=== PATIENT | male | born 1965 | race Caucasian/White ===

== ENCOUNTER 2018-01-23 01:23 | Outpatient (CLI) | payer OTHER, SELFPAY ==
--- NOTE | 2018-01-23 08:20 | DI.REPORT_ITS ---
SYMPTOM/DIAGNOSIS: RIGHT ELBOW PAIN, M25.521 RIGHT ELBOW: 01/23 Four views were obtained. There is no evidence of an elbow joint effusion or hemarthrosis. Mild degenerative changes of the joints of the elbow noted. No other significant abnormality seen.
== END 2018-01-23 01:24 ==
PROVIDERS: PCP Specialist/Technologist Athletic Trainer; Visit Provider Specialist/Technologist Athletic Trainer
DX: M25.521 Pain in right elbow (principal); M19.021 Primary osteoarthritis, right elbow
CPT/HCPCS: 73080

== ENCOUNTER 2018-11-27 13:37 | Inpatient (IN) | payer MEDICAID, SELFPAY ==
[2018-11-27] VITALS (50 sets, daily range): BP systolic 135–193; BP diastolic 89–126; PULSE 83–100; RESP 14–21; TEMP 36.5–37.2; O2SAT 88–98
--- NOTE | 2018-11-27 13:50 | DI.RAD_ITS ---
SYMPTOMS/DIAGNOSIS: CHEST PAIN, ? ACUTE DISEASE PA AND LATERAL CHEST: The heart is normal in size. The lungs are clear. The mediastinal structures and pleura appear intact. CONCLUSION: Normal chest.
--- NOTE | 2018-11-27 14:10 | W.ED.GENAD ---
Discharge Plan Disposition Patient Disposition: [facility] INPATIENT Condition: Stable Discharge Details Chief Complaint: Chest Pain Clinical Impression: Diverticulitis of large intestine with perforation and abscess without bleeding, Accelerated hypertension Admit Date/Time: 11/27/18 16:54 Admit Provider: Elaine Allen Attending Provider: Elaine Allen Primary Care Provider: Sajan Barker ED Provider: Kyung Randhawa Discharge Data Discharge Date/Time-TO BE ENTERED AT DEPARTURE: 11/27/18 19:48 Medical Decision Making 53-year-old male with a history of hypertension who presents with substernal chest pressure since 8 AM this morning. EKG done on arrival which notes a rate of 101, sinus, left anterior fascicular block, no acute ST-T wave ischemic changes. No old EKG to compare. Patient is hypertensive, blood pressure 173/105. He states he has already taken his daily dose of amlodipine and lisinopril. Patient appears uncomfortable, complaining of anterior chest pain. Upon exam, he has epigastric tenderness. Lungs CTA. Cardiac work-up ordered on arrival and unremarkable with negative troponin and chest x-ray. He had an elevated white blood cell count of 14. Magnesium 1.6. Upon reviewing work-up and reassessment, later stated that patient had an episode of lower abdominal pain 2 weeks ago for which he was seen in the ER in [place] and was told it was likely gastroenteritis - no ct done at that time. Patient is now stating that his main complaint is a headache. No focal deficits. He denies tearing sensation, so doubt dissection. With patient's history of recent travel and recent lower abdominal pain, will obtain a CT chest abdomen and pelvis in addition to CT head. Imaging reviewed with radiologist and notes severe diverticulitis with localized free air outside of colon consistent with perforation and phlegmon which could be developing into an early abscess. 1600 --discussed with surgery on-call Dr. Allen -would like IV Cipro and IV Flagyl. Accepts patient for admission. 1644 --patient informed of plan and agreeable for admission. BP still hypertensive, dose of hydralazine given and BP slightly improved. Pt chest pain much improved, also admits to some improvement of headache with morphine. Medical Records Medical records reviewed: Yes I reviewed the patient's medical records. Imaging Data Radiologic Study: Radiologist's impression: PA AND LATERAL CHEST: The heart is normal in size. The lungs are clear. The mediastinal structures and pleura appear intact. CONCLUSION: Normal chest. CRANIAL CT: A noncontrast cranial CT was performed. The ventricular system is normal in appearance. There is no evidence of an intracranial mass lesion. There is no evidence of a subdural or epidural hematoma. No focal areas of decreased attenuation are seen. CONCLUSION: Normal noncontrast cranial CT. CT ANGIOGRAPHY, CHEST, ABDOMEN AND PELVIS: CT angiography of the chest, abdomen and pelvis was performed with a bolus infusion of 100 cc of Omnipaque 350. The thoracic aorta is of normal diameter and major branch vessels appear intact. No evidence of pulmonary embolic disease. Tracheobronchial tree appears intact. The lungs are clear. No pleural effusion or pneumothorax. No mediastinal or hilar adenopathy. No axillary or supraclavicular adenopathy. Abdominal aorta is of normal diameter. Major branch vessels appear intact. No aneurysm or dissection. Common internal and external iliac arteries are unremarkable. Liver unremarkable in appearance except for a presumed 1 cm left hepatic lobe cyst. Spleen unremarkable. Pancreas unremarkable. Gallbladder and bile ducts unremarkable. No abdominal or pelvic adenopathy. No significant abdominal wall hernia. Bilateral small presumed renal cysts noted. No hydronephrosis or ureterolithiasis. Nonobstructing left nephrolithiasis noted with at least two small stones, the largest measuring about 5 mm in diameter. Appendix is normal. There is an area of marked wall thickening of the sigmoid colon with marked pericolonic edema consistent with acute diverticulitis. There appears to be a localized perforation with a phlegmonous collection measuring roughly 5 cm in diameter adjacent to the sigmoid colon. No free air in the peritoneal cavity. No true abscess formation at this time. No evidence of obstruction. CONCLUSION: Findings consistent with severe sigmoid diverticulitis with localized perforation and phlegmon formation as described above. No additional significant finding Lab Data Lab results reviewed: Yes I reviewed the patient's lab results. 11/27/18 17:04 Blood Blood Culture - Pending 11/27/18 16:50 Blood Blood Culture - Pending Laboratory Tests Range/Units 11/27/18 11/27/18 11/27/18 13:52 13:52 13:52 WBC (4.4-10.8) k/cumm 14.89 H RBC (4.50-6.00) m/cumm 5.18 Hgb (13.5-17.5) g/dL 14.4 Hct (40.0-50.0) % 42.4 MCV (80-95) fL 81.9 MCH (27.0-33.0) pg 27.8 MCHC (32.0-36.0) g/dL 34.0 RDW (11.8-14.1) % 14.4 H Plt Count (130-400) x1000/uL 318 MPV (8.0-11.0) fL 9.7 Immature Gran % 0.3 Neutrophils % 78.6 Lymphocytes % 11.3 Monocytes % 8.6 Eosinophils % 1.0 Basophils % 0.2 Absolute Neutrophils (1.2-6.7) k/cumm 11.70 H Absolute Lymphocytes (1.2-3.4) k/cumm 1.68 Absolute Monocytes (0.11-0.7) k/cumm 1.28 H Absolute Eosinophils (0.0-0.7) k/cumm 0.15 Absolute Basophils (0.0-0.2) k/cumm 0.03 Sodium (136-145) mmol/L 137 Potassium (3.5-5.1) mmol/L 4.0 Chloride (98-107) mmol/L 100 Carbon Dioxide (21.0-32.0) mmol/L 26.8 Anion Gap (3-11) mmol/L 10.2 BUN (7-18) mg/dL 10 Creatinine (0.70-1.30) mg/dL 0.64 L Estimated GFR/1.73 m2 (mL/min/1.73m2) >= 60.00 Glucose (70-100) mg/dL 105 H Lactate (0.6-1.4) mmol/l Calcium (8.5-10.1) mg/dL 9.0 Magnesium (1.8-2.4) mg/dL 1.6 L Total Bilirubin (0.2-1.0) mg/dL 0.5 AST (15-37) U/L 18 ALT (12-78) U/L 47 Alkaline Phosphatase (46-116) U/L 72 Troponin I (0.00-0.06) ng/mL < 0.05 Total Protein (6.4-8.2) g/dL 8.2 Albumin (3.4-5.0) g/dL 3.2 L Lipase (73-393) U/L 48 L Range/Units 11/27/18 17:04 WBC (4.4-10.8) k/cumm RBC (4.50-6.00) m/cumm Hgb (13.5-17.5) g/dL Hct (40.0-50.0) % MCV (80-95) fL MCH (27.0-33.0) pg MCHC (32.0-36.0) g/dL RDW (11.8-14.1) % Plt Count (130-400) x1000/uL MPV (8.0-11.0) fL Immature Gran % Neutrophils % Lymphocytes % Monocytes % Eosinophils % Basophils % Absolute Neutrophils (1.2-6.7) k/cumm Absolute Lymphocytes (1.2-3.4) k/cumm Absolute Monocytes (0.11-0.7) k/cumm Absolute Eosinophils (0.0-0.7) k/cumm Absolute Basophils (0.0-0.2) k/cumm Sodium (136-145) mmol/L Potassium (3.5-5.1) mmol/L Chloride (98-107) mmol/L Carbon Dioxide (21.0-32.0) mmol/L Anion Gap (3-11) mmol/L BUN (7-18) mg/dL Creatinine (0.70-1.30) mg/dL Estimated GFR/1.73 m2 (mL/min/1.73m2) Glucose (70-100) mg/dL Lactate (0.6-1.4) mmol/l 1.2 Calcium (8.5-10.1) mg/dL Magnesium (1.8-2.4) mg/dL Total Bilirubin (0.2-1.0) mg/dL AST (15-37) U/L ALT (12-78) U/L Alkaline Phosphatase (46-116) U/L Troponin I (0.00-0.06) ng/mL Total Protein (6.4-8.2) g/dL Albumin (3.4-5.0) g/dL Lipase (73-393) U/L ECG Data Attestation: I personally reviewed and interpreted this ECG (s) as follows: Interpretation: Rate of 53, sinus, left anterior fascicular block. No acute ST or T wave ischemic changes. QTc 451. QRS 102. No old EKG to compare. HPI General Mode of arrival: ambulatory. Date/Time Provider Initiated Documentation: 11/27/18 13:50. Limitations to Documentation: no limitations. Information obtained by: patient. HPI Narrative: Patient is a 53-year-old male with history of hypertension who presents with substernal chest pressure that started at 8 AM. States the pain is currently 5/10. He states the pain radiates from his epigastric region up to his chest. He admits to some dizziness last night but none at present. He admits to nausea today but denies any vomiting. He denies aggravating or alleviating factors. He denies any previous history of stress test. He admits to traveling recently from [place] approximately 3 hours in the car. He denies any history of recent surgery, leg pain or swelling. Related Data Home Medications Medication Instructions Recorded Confirmed amlodipine 5 mg PO DAILY 11/27/18 11/27/18 lisinopril 40 mg PO DAILY 11/27/18 11/27/18 Allergies Allergy/AdvReac Type Severity Reaction Status Date / Time No Known Allergies Allergy Unverified 11/27/18 14:06 General Stated Complaint: Chest Pain RICHARD: 2 Review of Systems Review of Systems All systems reviewed & are unremarkable except as noted in HPI and below Constitutional Reports as per HPI, Denies chills and Denies fever(s) Eyes Denies blurry vision ENT Denies dizziness, Denies sore throat and Denies throat swelling Cardiovascular Reports chest pain and Denies dyspnea Respiratory Denies cough and Denies dyspnea Gastrointestinal Denies abdominal pain, Denies diarrhea, Reports nausea and Denies vomiting Genitourinary Denies hematuria and Denies dysuria Musculoskeletal Denies back pain and Denies numbness Integumentary/Breasts Denies lesions and Denies rash Neurologic Denies dizziness, Denies focal weakness and Denies numbness Allergic/Immunologic Denies throat swelling COUNTS INCLUDE 234 BEDS AT THE [facility] Medical History Diverticulitis of large intestine with perforation and abscess without bleeding (Acute) HTN (hypertension) (Chronic) Surgical History No significant past surgical history (Acute) Family History Brother Heart disease Social History Smoking/Tobacco Use Status: Never Alcohol Intake: never Drug use: Rarely Substance use type: marijuana Details: joint every 2-3 days Do you feel safe at home: Yes Do you feel safe in your relationship?: Yes 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 [place] Exam Const General: cooperative and acute distress moderate (appears uncomfortable) Nutritional Appearance: obese HENMT Head: normal to inspection Face and sinus: normal facial exam Eyes General: appearance normal, both eyes and all related structures Pupils: PERRL EOM: EOM intact bilaterally Neck Neck: normal visual inspection and No submandibular swelling Lymphatic: no lymphadenopathy noted Chest Chest: normal inspection of the chest and no tenderness Resp Effort & Inspection: normal respiratory effort and able to speak in complete sentences Auscultation: clear to auscultation bilaterally Cardio Rate: regular rate Rhythm: regular rhythm GI Inspection: normal to inspection and no abdominal wall ecchymosis Palpation: soft, not firm, not rigid and tender in the epigastrum Auscultation: normal bowel sounds Skin General skin exam: no rashes or lesions noted Neuro General: alert, awake and oriented x3 Cognition: normal cognition Speech: speech normal Motor: muscle tone normal throughout Sensory Exam: no sensory deficits noted Extrem General: normal to inspection, full ROM, normal capillary refill, no calf tenderness bilaterally and no edema Psych Appearance: grossly normal Mental Status: mental status grossly normal Speech and Movement: speech and movement normal Affect: normal affect Course Vital Signs Temperature 97.9 F 11/27/18 13:49 Pulse 100 H 11/27/18 13:49 Respiratory Rate 16 11/27/18 13:49 Blood Pressure 169/109 H 11/27/18 13:49 Pulse Oximetry 95 11/27/18 13:49 Temperature 97.9 F 11/27/18 13:49 Temperature Source Temporal Artery Scan 11/27/18 13:49 Pulse 100 H 11/27/18 13:49 Respiratory Rate 16 11/27/18 14:01 Respiratory Effort 11/27/18 13:49 Blood Pressure 169/109 H 11/27/18 13:49 Blood Pressure Position Supine 11/27/18 13:49 Pulse Oximetry 95 11/27/18 13:49 Oxygen Delivery Method Room Air 11/27/18 13:49 Oxygen Flow Rate 0 11/27/18 13:49 Pain Level 5 11/27/18 13:49
[2018-11-27 14:14] LABS: Abs Immature Grans 0.04 k/cumm (0.0-0.09); Absolute Basophil Count 0.03 k/cumm (0.0-0.2); Absolute Eosinophil Count 0.15 k/cumm (0.0-0.7); Absolute Lymphocyte Count 1.68 k/cumm (1.2-3.4); Absolute Monocyte Count 1.28 k/cumm (0.11-0.7); Basophils % 0.2; HCT 42.4 % (40.0-50.0); HGB 14.4 g/dL (13.5-17.5); Immature Grans % 0.3; Lymphocytes % 11.3; Mean Corpuscular Hemoglobin 27.8 pg (27.0-33.0); Mean Corpuscular Volume 81.9 fL (80-95); Mean Platelet Volume 9.7 fL (8.0-11.0); Monocytes % 8.6; Neutrophils % 78.6; Platelet Count 318 x1000/uL (130-400); RBC 5.18 m/cumm (4.50-6.00); RBC Distribution Width 14.4 % (11.8-14.1); White Blood Cell Count 14.89 k/cumm (4.4-10.8)
[2018-11-27 14:35] LABS: ALT 47 U/L (12-78); AST 18 U/L (15-37); Albumin 3.2 g/dL (3.4-5.0); Alkaline Phosphatase 72 U/L (46-116); Anion Gap 10.2 mmol/L (3-11); BUN 10 mg/dL (7-18); Bilirubin, Total 0.5 mg/dL (0.2-1.0); CO2 26.8 mmol/L (21.0-32.0); CREATININE 0.64 mg/dL (0.70-1.30); Chloride 100 mmol/L (98-107); Glucose 105 mg/dL (70-100); Magnesium 1.6 mg/dL (1.8-2.4); Sodium 137 mmol/L (136-145); Total Protein 8.2 g/dL (6.4-8.2)
[2018-11-27 14:37] LABS: Troponin I < 0.05 ng/mL (0.00-0.06)
[2018-11-27] MEDS: FAMOTIDINE 20 MG/50 ML BAG 200 MG IVPB (15:16)
[2018-11-27] MEDS: Normal Saline 1,000 ML 1000 ML IV (15:16)
[2018-11-27 15:38] LABS: Lipase 48 U/L (73-393)
--- NOTE | 2018-11-27 15:43 | DI.CT_ITS ---
SYMPTOMS/DIAGNOSIS: HEADACHE, ? ACUTE PROCESS; ANTERIOR CHEST/EPIGASTRIC PAIN, ? PE OR ACUTE ABDOMEN CRANIAL CT: A noncontrast cranial CT was performed. The ventricular system is normal in appearance. There is no evidence of an intracranial mass lesion. There is no evidence of a subdural or epidural hematoma. No focal areas of decreased attenuation are seen. CONCLUSION: Normal noncontrast cranial CT. CT ANGIOGRAPHY, CHEST, ABDOMEN AND PELVIS: CT angiography of the chest, abdomen and pelvis was performed with a bolus infusion of 100 cc of Omnipaque 350. The thoracic aorta is of normal diameter and major branch vessels appear intact. No evidence of pulmonary embolic disease. Tracheobronchial tree appears intact. The lungs are clear. No pleural effusion or pneumothorax. No mediastinal or hilar adenopathy. No axillary or supraclavicular adenopathy. Abdominal aorta is of normal diameter. Major branch vessels appear intact. No aneurysm or dissection. Common internal and external iliac arteries are unremarkable. Liver unremarkable in appearance except for a presumed 1 cm left hepatic lobe cyst. Spleen unremarkable. Pancreas unremarkable. Gallbladder and bile ducts unremarkable. No abdominal or pelvic adenopathy. No significant abdominal wall hernia. Bilateral small presumed renal cysts noted. No hydronephrosis or ureterolithiasis. Nonobstructing left nephrolithiasis noted with at least two small stones, the largest measuring about 5 mm in diameter. Appendix is normal. There is an area of marked wall thickening of the sigmoid colon with marked pericolonic edema consistent with acute diverticulitis. There appears to be a localized perforation with a phlegmonous collection measuring roughly 5 cm in diameter adjacent to the sigmoid colon. No free air in the peritoneal cavity. No true abscess formation at this time. No evidence of obstruction. CONCLUSION: Findings consistent with severe sigmoid diverticulitis with localized perforation and phlegmon formation as described above. No additional significant findings.
[2018-11-27] MEDS: Omnipaque 350 MG/ML 100 ML BTL IJ (15:45)
[2018-11-27] MEDS: Acetaminophen 325 MG TAB 650 MG PO (16:10)
[2018-11-27 17:13] LABS: Lactate-non-spesis 1.2 mmol/l (0.6-1.4)
[2018-11-27] MEDS: CIPROFLOXACIN 400 MG/200 ML BAG 200 MG IVPB (17:40)
[2018-11-27] MEDS: metroNIDAZOLE 500 MG/100 ML BAG 100 MG IVPB (18:48)
[2018-11-27] MEDS: Lactated Ringers 1,000 ML 125 ML IV (19:00)
[2018-11-27] MEDS: hydrALAZINE 20 MG/ML VIAL 10 MG IVP (19:09)
[2018-11-27] MEDS: Heparin 5,000 UNITS/ML VIAL 5000 UNITS SC (19:11)
[2018-11-27] MEDS: Normal Saline Flush 10 ML SYR IVP (22:13)
[2018-11-28] VITALS (7 sets, daily range): BP systolic 131–159; BP diastolic 80–114; PULSE 82–93; RESP 18–20; TEMP 36.1–37.4; O2SAT 93–98
--- NOTE | 2018-11-28 00:39 | NUR.NOTE ---
Nursing Note: 11/27/18 Admitted in to Med/Surg floor room 214 a 53 y/o M. with complaints of abdominal pain. Transferred to bed safely from ER stretcher. VSS. Alert and oriented x3. Oriented to room.
[2018-11-28] MEDS: metroNIDAZOLE 500 MG/100 ML BAG 100 MG IVPB ×3 (01:45→19:00)
[2018-11-28] MEDS: Lactated Ringers 1,000 ML 125 ML IV ×3 (01:51→22:58)
[2018-11-28] MEDS: CIPROFLOXACIN 400 MG/200 ML BAG 200 MG IVPB ×2 (05:36→17:00)
[2018-11-28 07:22] LABS: Abs Immature Grans 0.02 k/cumm (0.0-0.09); Absolute Basophil Count 0.02 k/cumm (0.0-0.2); Absolute Lymphocyte Count 1.45 k/cumm (1.2-3.4); Absolute Monocyte Count 1.24 k/cumm (0.11-0.7); Basophils % 0.2; Eosinophils % 1.8; HCT 40.8 % (40.0-50.0); HGB 13.5 g/dL (13.5-17.5); Immature Grans % 0.2; Lymphocytes % 13.3; Mean Corp. HGB Concentration 33.1 g/dL (32.0-36.0); Mean Corpuscular Hemoglobin 27.5 pg (27.0-33.0); Mean Corpuscular Volume 83.1 fL (80-95); Mean Platelet Volume 9.4 fL (8.0-11.0); Monocytes % 11.4; Neutrophils % 73.1; Platelet Count 285 x1000/uL (130-400); RBC 4.91 m/cumm (4.50-6.00); RBC Distribution Width 14.6 % (11.8-14.1); White Blood Cell Count 10.92 k/cumm (4.4-10.8)
[2018-11-28 07:27] LABS: Absolute Neutrophil Count 7.98 k/cumm (1.2-6.7)
[2018-11-28] MEDS: Normal Saline Flush 10 ML SYR IVP ×3 (07:53→22:58)
[2018-11-28] MEDS: amLODIPine 5 MG TAB PO (07:54)
[2018-11-28] MEDS: Heparin 5,000 UNITS/ML VIAL 5000 UNITS SC ×2 (07:54→21:00)
[2018-11-28] MEDS: Lisinopril 20 MG TAB 40 MG PO (07:54)
[2018-11-28] MEDS: Ketorolac 30 MG/ML VIAL IVP ×3 (07:55→21:33)
[2018-11-28] MEDS: Ondansetron 4 MG/2 ML VIAL IVP (08:12)
--- NOTE | 2018-11-28 10:20 | W.PM.HP.N ---
Date of service: 11/28/18 Time of Service: 07:45 Assessment and Plan (1) Diverticulitis of large intestine with perforation and abscess without bleeding: Current visit: Yes Status: Acute The patient has a contained diverticular perforation which will hopefully resolve with IV antibiotics. He is still feeling poorly overall and needs to stay in the hospital for IV antibiotics and symptom control. We will try to slowly advance his diet. If his blood pressure remains high after taking his morning medications then a hospitalist consult may be needed. At this point I am hopeful he will improve with antibiotics and does not obviously need need surgery at this time. History of Present Illness Narrative: This patient presented to the emergency department yesterday with complaints of chest pain and a headache. He had a normal cardiac work-up and head CT. He is subsequently admitted to also having a 2-week history of abdominal pain. This had been evaluated in [place] while on vacation with a diagnosis gastroenteritis. The pain is located inferior to the umbilicus and has been constant. Is worsened by eating, movement and by bowel movements. He has been passing flatus and having small bowel movements without blood present. The patient's p.o. intake has been very poor related to nausea and pain. He had a CT scan of the abdomen and pelvis that I reviewed. This shows evidence of diverticulitis with a contained perforation. The patient denies prior history. He has no family history of inflammatory bowel disease or colon cancer. Review of Systems Constitutional Denies fatigue, Reports headache(s) and Reports lethargy Eyes Denies change in vision ENT Reports headache(s) and Denies neck mass Cardiovascular Denies chest pain, Denies edema, Denies palpitations and Denies dyspnea Respiratory Denies cough, Denies dyspnea and Denies wheezing Gastrointestinal Reports abdominal pain, Denies hematochezia and Reports change in bowel habits Genitourinary Denies dysuria Musculoskeletal Denies joint swelling Integumentary/Breasts Denies new lesions and Denies rash Neurologic Denies confusion, Reports headache(s) and Denies focal weakness Psychiatric Reports system reviewed and no additional complaints, except as docu and Denies confusion Endocrine Denies fatigue and Denies palpitations Hematologic/Lymphatic Denies easy bleeding and Denies lymphadenopathy Allergic/Immunologic Denies wheezing [facility] Medical History HTN (hypertension) (Chronic) Surgical History No significant past surgical history (Acute) Family History Brother Heart disease Social History Smoking/Tobacco Use Status: Never Alcohol Intake: never Drug use: Rarely Substance use type: marijuana Details: joint every 2-3 days Do you feel safe at home: Yes Do you feel safe in your relationship?: Yes 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[employer] Medications Medication Instructions Recorded Confirmed Type amlodipine 5 mg PO DAILY 11/27/18 11/27/18 History lisinopril 40 mg PO DAILY 11/27/18 11/27/18 History Allergies Allergy/AdvReac Type Severity Reaction Status Date / Time No Known Allergies Allergy Unverified 11/27/18 14:06 Exam Const Nutritional Appearance: well nourished Orientation: oriented x3 HENMT Head: normal to inspection Eyes Sclera: sclerae normal Pupils: PERRL Neck Neck: no lymphadenopathy Thyroid: thyroid normal Carotids: no bruits Lymphatic: no lymphadenopathy noted Resp Effort & Inspection: normal respiratory effort Auscultation: clear to auscultation bilaterally and no wheezes Cardio Rate: regular rate Rhythm: regular rhythm Pulses: dorsalis pedis pulses present GI Inspection: non-distended and obesity Palpation: soft, no hepatosplenomegaly, no hernias and tender in the RLQ Skin General skin exam: no rashes or lesions noted Neuro General: alert Cognition: normal cognition Extrem General: normal to inspection Psych Affect: normal affect Attitude: cooperative Results Labs : 11/28/18 06:56 11/27/18 13:52 Laboratory Results - last 24 hr 11/27/18 11/27/18 11/27/18 13:52 13:52 13:52 WBC 14.89 H RBC 5.18 Hgb 14.4 Hct 42.4 MCV 81.9 MCH 27.8 MCHC 34.0 RDW 14.4 H Plt Count 318 MPV 9.7 Immature Gran % 0.3 Neutrophils % 78.6 Lymphocytes % 11.3 Monocytes % 8.6 Eosinophils % 1.0 Basophils % 0.2 Absolute Neutrophils 11.70 H Absolute Lymphocytes 1.68 Absolute Monocytes 1.28 H Absolute Eosinophils 0.15 Absolute Basophils 0.03 Sodium 137 Potassium 4.0 Chloride 100 Carbon Dioxide 26.8 Anion Gap 10.2 BUN 10 Creatinine 0.64 L Estimated GFR/1.73 m2 >= 60.00 Glucose 105 H Lactate Calcium 9.0 Magnesium 1.6 L Total Bilirubin 0.5 AST 18 ALT 47 Alkaline Phosphatase 72 Troponin I < 0.05 Total Protein 8.2 Albumin 3.2 L Lipase 48 L 11/27/18 11/28/18 17:04 06:56 WBC 10.92 H RBC 4.91 Hgb 13.5 Hct 40.8 MCV 83.1 MCH 27.5 MCHC 33.1 RDW 14.6 H Plt Count 285 MPV 9.4 Immature Gran % 0.2 Neutrophils % 73.1 Lymphocytes % 13.3 Monocytes % 11.4 Eosinophils % 1.8 Basophils % 0.2 Absolute Neutrophils 7.98 H Absolute Lymphocytes 1.45 Absolute Monocytes 1.24 H Absolute Eosinophils 0.20 Absolute Basophils 0.02 Sodium Potassium Chloride Carbon Dioxide Anion Gap BUN Creatinine Estimated GFR/1.73 m2 Glucose Lactate 1.2 Calcium Magnesium Total Bilirubin AST ALT Alkaline Phosphatase Troponin I Total Protein Albumin Lipase Last Vital Signs Temp 97.0 F L 11/28/18 09:27 Pulse 82 11/28/18 09:27 Resp 20 11/28/18 09:27 BP 131/88 11/28/18 09:27 Pulse Ox 97 11/28/18 09:27
--- NOTE | 2018-11-28 11:23 | PHARADMIT ---
Admission Pharmacy Clinical Review acute diverticulitis w/phlegmon Code Status Full Code Current Weight 123.377 kg Renally Cleared and Narrow Therapeutic Index Meds Crcl over 100 mL/min using adjusted body weight, current meds okay QTc Value / Action Taken QTc 451 BP Control, Fever BP 131/88 afebrile Electrolytes reviewed mag 1.6 yesterday, no replacement give DVT Prophylaxis heparin Opiate Usage / Scheduled Bowel Regimen Ordered prn/prn Plt/SCr for Heparin / Enoxaparin plt 285 SCr 0.64 INR for Warfarin n/a H/H stable, WBC/Bands h/h 13.5/40.8 wbc 10.92 Antibiotic appropriateness ciprofloxacin and metronidazole Cultures and Sensitivities blood cultures pending Surgical ABX d/c within 24 hr n/a DM control / Insulin Dosing BG 105 Heart Failure (Check EF%) (HERRERA's, B-Block, Diuretics) amlodipine, lisinopril IV to PO Switch n/a Home Meds Reviewed yes Home Meds Not Ordered both are ordered Comments pt has contained diverticular perforation which hopes will resolve with abx pre progress note
--- NOTE | 2018-11-28 15:51 | PDOC.CMIN ---
Care Management Initial Assess REASON FOR HOSPITALIZATION:: Acute Diverticulitis with Phlegmon PAST MEDICAL HISTORY/PAST SURGICAL HISTORY:: Medical: Hypertension. No significant surgical history PREVIOUS FUNCTIONAL STATUS/SOCIAL/FAMILY SUPPORTS:: Lives with his at their home in [place]. 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 CURRENT FUNCTIONAL STATUS:: Lying in bed. States he has been in pain but it seems a little better. ADVANCE DIRECTIVES:: None on file Has patient been provided with information about the portal?: No Did the patient sign up for the portal?: No CODE STATUS:: Full Code INSURANCE COVERAGE / FINANCIAL ISSUES:: Medicaid CURRENT HOME/COMMUNITY SERVICES/EQUIPMENT:: None at this time PRIMARY CARE PHYSICIAN:: [facility] POTENTIAL DISCHARGE NEEDS:: Physical limitations PATIENT/FAMILY EDUCATION NEEDS:: Discharge instructions ANTICIPATED BARRIERS TO DISCHARGE:: None identified TRANSPORTATION:: will transport. PLAN:: Kojo will return home when medically cleared for discharge. No services needed. Readmission - Within the Past 30 Days Yes or No: N
[2018-11-29] VITALS (8 sets, daily range): BP systolic 145–166; BP diastolic 96–110; PULSE 89–101; RESP 18–22; TEMP 36.7–37.5; O2SAT 94–98
[2018-11-29] MEDS: metroNIDAZOLE 500 MG/100 ML BAG 100 MG IVPB ×3 (01:52→17:08)
[2018-11-29] MEDS: CIPROFLOXACIN 400 MG/200 ML BAG 200 MG IVPB ×2 (05:32→18:36)
[2018-11-29] MEDS: Lactated Ringers 1,000 ML 125 ML IV ×2 (06:42→16:11)
[2018-11-29 07:36] LABS: Abs Immature Grans 0.03 k/cumm (0.0-0.09); Absolute Basophil Count 0.01 k/cumm (0.0-0.2); Absolute Lymphocyte Count 1.27 k/cumm (1.2-3.4); Absolute Monocyte Count 1.32 k/cumm (0.11-0.7); Absolute Neutrophil Count 7.28 k/cumm (1.2-6.7); Basophils % 0.1; HCT 39.9 % (40.0-50.0); HGB 13.5 g/dL (13.5-17.5); Immature Grans % 0.3; Lymphocytes % 12.6; Mean Corp. HGB Concentration 33.8 g/dL (32.0-36.0); Mean Corpuscular Hemoglobin 27.9 pg (27.0-33.0); Mean Corpuscular Volume 82.4 fL (80-95); Mean Platelet Volume 9.6 fL (8.0-11.0); Monocytes % 13.1; Neutrophils % 71.9; Platelet Count 268 x1000/uL (130-400); RBC 4.84 m/cumm (4.50-6.00); RBC Distribution Width 14.4 % (11.8-14.1); White Blood Cell Count 10.11 k/cumm (4.4-10.8)
[2018-11-29] MEDS: amLODIPine 5 MG TAB PO (08:33)
[2018-11-29] MEDS: Lisinopril 20 MG TAB 40 MG PO (08:33)
[2018-11-29] MEDS: Heparin 5,000 UNITS/ML VIAL 5000 UNITS SC (08:34)
[2018-11-29] MEDS: Normal Saline Flush 10 ML SYR IVP ×2 (08:47→17:15)
--- NOTE | 2018-11-29 09:33 | W.PM.DS.N ---
Date of service: 11/30/18 Time of Service: 12:16 DS: Diagnosis Discharge Diagnosis (1) Diverticulitis of large intestine with perforation and abscess without bleeding: Status: Acute Discharge Plan Disposition Patient Disposition: HOME Condition: Stable Discharge Details Chief Complaint: Chest Pain Clinical Impression: Diverticulitis of large intestine with perforation and abscess without bleeding, Accelerated hypertension Reason For Visit: ACUTE DIVERTICULITIS W/PHLEGMON Admit Date/Time: 11/29/18 16:43 Admit Provider: Elaine Allen Attending Provider: Elaine Allen Primary Care Provider: Sajan Barker ED Provider: Kyung Randhawa Hospital Course Hospital Course: Patient presented with a two week history of abdominal pain and not feeling well. CT showed contained perforated divertilculitis. Patient improved with several days of IV antibiotics. On the day of discharge his WBC was normal, he was tolerating PO and had a BM. Pain was minimal. Will see in the office next week. Plan for follow up colonoscopy in 6 weeks or so. Home Meds and New Rx's Prescriptions: New ciprofloxacin HCl [Cipro] 500 mg tablet 500 mg PO BID 10 Days Qty: 20 RF: 0 metronidazole 500 mg tablet 500 mg PO TID Qty: 21 RF: 0 Continued lisinopril 40 mg Tablet 40 mg PO DAILY RF: 0 amlodipine 5 mg Tablet 5 mg PO DAILY RF: 0 Discharge Instructions Additional Instructions: Activity as tolerated Plan to return to work next Friday if feeling well Soft/low fiber diet for now Call for worsening pain, fever, constipation Take a daily or twice a day stool softener like Colace Referrals: Elaine Allen MD [ [facility] STAFF PHYSICIAN] - 12/07/18 (Patient prefers later afternoon) Activity:: Activity as Tolerated Equipment/Supplies:: No Equipment Needed Diet:: Other Discharge Orders Discharge Orders: Discharge Order (Routine); Ordered 11/30/18 Ordered By: Elaine Allen DS: Data Vitals/I&O Vitals and I&O: Vital Signs Temperature 98.1 F 11/29/18 07:30 Temperature Source Tympanic 11/29/18 07:30 Pulse 89 11/29/18 07:30 Pulse Rhythm Regular 11/29/18 01:08 Pulse 90 11/27/18 15:10 Respiratory Rate 11/29/18 07:30 Respiratory Effort Non-Labored 11/29/18 01:08 Respiratory Depth Normal 11/29/18 01:08 Respiratory Pattern Normal 11/29/18 01:08 Blood Pressure 152/101 H 11/29/18 07:30 Blood Pressure Mean 116 11/27/18 19:30 Blood Pressure Position Supine 11/27/18 13:49 Pulse Oximetry 96 11/29/18 07:30 Oxygen Delivery Method Room Air 11/29/18 07:30 Oxygen Flow Rate 0 11/29/18 07:30 Pain Level 3 11/29/18 07:30 Comment 11/29/18 07:30 Intake & Output 11/28/18 11/28/18 11/29/18 11:59 23:59 11:59 Intake Total 2388.25 / 3722.417 1334.167 / 3722.417 2007.084 / 2006.084 Output Total 500 / 2000 1500 / 2000 450 / 450 Balance 1888.25 / 1722.417 -165.833 / 4402.494 9888.084 / 1557.084 Intake: IV 2268.25 / 3122.417 854.167 / 3122.417 1527.084 / 1527.084 Oral 120 / 600 480 / 600 480 / 480 Output: Urine 500 / 2000 1500 / 2000 450 / 450 Other: Urine Color Straw Yellow Dark Yas Urine Appearance Clear Clear Clear Urine Odor Normal Normal None Voiding Methods Urinal Urinal Urinal Labs on day of discharge: Labs from last 24 hours 11/29/18 07:12 WBC 10.11 RBC 4.84 Hgb 13.5 Hct 39.9 L MCV 82.4 MCH 27.9 MCHC 33.8 RDW 14.4 H Plt Count 268 MPV 9.6 Immature Gran % 0.3 Neutrophils % 71.9 Lymphocytes % 12.6 Monocytes % 13.1 Eosinophils % 2.0 Basophils % 0.1 Absolute Neutrophils 7.28 H Absolute Lymphocytes 1.27 Absolute Monocytes 1.32 H Absolute Eosinophils 0.20 Absolute Basophils 0.01 Preliminary micro results at discharge 11/27/18 17:04 Blood Culture - Preliminary Blood NO GROWTH 24 HOURS 11/27/18 16:50 Blood Culture - Preliminary Blood NO GROWTH 24 HOURS [facility] Medical History Diverticulitis of large intestine with perforation and abscess without bleeding (Acute) HTN (hypertension) (Chronic) Surgical History No significant past surgical history (Acute) Family History Brother Heart disease Social History Smoking/Tobacco Use Status: Never Alcohol Intake: never Drug use: Rarely Substance use type: marijuana Details: joint every 2-3 days Do you feel safe at home: Yes Do you feel safe in your relationship?: Yes 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
--- NOTE | 2018-11-29 09:47 | DSE_ITS ---
Date of service: 11/30/18 Time of Service: 12:16 DS: Diagnosis Discharge Diagnosis (1) Diverticulitis of large intestine with perforation and abscess without bleeding: Status: Acute Discharge Plan Disposition Patient Disposition: HOME Condition: Stable Discharge Details Chief Complaint: Chest Pain Clinical Impression: Diverticulitis of large intestine with perforation and abscess without bleeding, Accelerated hypertension Reason For Visit: ACUTE DIVERTICULITIS W/PHLEGMON Admit Date/Time: 11/29/18 16:43 Admit Provider: Elaine Allen Attending Provider: Elaine Allen Primary Care Provider: Sajan Barker ED Provider: Kyung Randhawa Hospital Course Hospital Course: Patient presented with a two week history of abdominal pain and not feeling well. CT showed contained perforated divertilculitis. Patient improved with several days of IV antibiotics. On the day of discharge his WBC was normal, he was tolerating PO and had a BM. Pain was minimal. Will see in the office next week. Plan for follow up colonoscopy in 6 weeks or so. Home Meds and New Rx's Prescriptions: New ciprofloxacin HCl [Cipro] 500 mg tablet 500 mg PO BID 10 Days Qty: 20 RF: 0 metronidazole 500 mg tablet 500 mg PO TID Qty: 21 RF: 0 Continued lisinopril 40 mg Tablet 40 mg PO DAILY RF: 0 amlodipine 5 mg Tablet 5 mg PO DAILY RF: 0 Discharge Instructions Additional Instructions: Activity as tolerated Plan to return to work next Friday if feeling well Soft/low fiber diet for now Call for worsening pain, fever, constipation Take a daily or twice a day stool softener like Colace Referrals: Elaine Allen MD [ [facility] STAFF PHYSICIAN] - 12/07/18 (Patient prefers later afternoon) Activity:: Activity as Tolerated Equipment/Supplies:: No Equipment Needed Diet:: Other Discharge Orders Discharge Orders: Discharge Order (Routine); Ordered 11/30/18 Ordered By: Elaine Allen DS: Data Vitals/I&O Vitals and I&O: Vital Signs Temperature 98.1 F 11/29/18 07:30 Temperature Source Tympanic 11/29/18 07:30 Pulse 89 11/29/18 07:30 Pulse Rhythm Regular 11/29/18 01:08 Pulse 90 11/27/18 15:10 Respiratory Rate 11/29/18 07:30 Respiratory Effort Non-Labored 11/29/18 01:08 Respiratory Depth Normal 11/29/18 01:08 Respiratory Pattern Normal 11/29/18 01:08 Blood Pressure 152/101 H 11/29/18 07:30 Blood Pressure Mean 116 11/27/18 19:30 Blood Pressure Position Supine 11/27/18 13:49 Pulse Oximetry 96 11/29/18 07:30 Oxygen Delivery Method Room Air 11/29/18 07:30 Oxygen Flow Rate 0 11/29/18 07:30 Pain Level 3 11/29/18 07:30 Comment 11/29/18 07:30 Intake & Output 11/28/18 11/28/18 11/29/18 11:59 23:59 11:59 Intake Total 2388.25 / 3722.417 1334.167 / 3722.417 2007.084 / 2006.084 Output Total 500 / 2000 1500 / 2000 450 / 450 Balance 1888.25 / 1722.417 -165.833 / 2455.355 6839.084 / 1557.084 Intake: IV 2268.25 / 3122.417 854.167 / 3122.417 1527.084 / 1527.084 Oral 120 / 600 480 / 600 480 / 480 Output: Urine 500 / 2000 1500 / 2000 450 / 450 Other: Urine Color Straw Yellow Dark Yas Urine Appearance Clear Clear Clear Urine Odor Normal Normal None Voiding Methods Urinal Urinal Urinal Labs on day of discharge: Labs from last 24 hours 11/29/18 07:12 WBC 10.11 RBC 4.84 Hgb 13.5 Hct 39.9 L MCV 82.4 MCH 27.9 MCHC 33.8 RDW 14.4 H Plt Count 268 MPV 9.6 Immature Gran % 0.3 Neutrophils % 71.9 Lymphocytes % 12.6 Monocytes % 13.1 Eosinophils % 2.0 Basophils % 0.1 Absolute Neutrophils 7.28 H Absolute Lymphocytes 1.27 Absolute Monocytes 1.32 H Absolute Eosinophils 0.20 Absolute Basophils 0.01 Preliminary micro results at discharge 11/27/18 17:04 Blood Culture - Preliminary Blood NO GROWTH 24 HOURS 11/27/18 16:50 Blood Culture - Preliminary Blood NO GROWTH 24 HOURS [facility] Medical History Diverticulitis of large intestine with perforation and abscess without bleeding (Acute) HTN (hypertension) (Chronic) Surgical History No significant past surgical history (Acute) Family History Brother Heart disease Social History Smoking/Tobacco Use Status: Never Alcohol Intake: never Drug use: Rarely Substance use type: marijuana Details: joint every 2-3 days Do you feel safe at home: Yes Do you feel safe in your relationship?: Yes 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
--- NOTE | 2018-11-29 10:45 | W.PM.PROGNOT ---
Date of Service Date of service: 11/29/18 Time of Service: 08:50 Assessment and Plan (1) Diverticulitis of large intestine with perforation and abscess without bleeding: Current visit: Yes Status: Acute WBC is improved today Will continue IV antibiotics for today, still has low grade temp and some tenderness Stool softener/probiotics Subjective Interval history since last seen: Feels blah today but no significant pain Tolerating PO Passing flatus but no stool Exam Narrative Exam Narrative: Alert Lungs CTA Heart RRR Abdomen soft, tender just below and to the right of the umbilicus but improved. No peritonitis Objective Objective Clinical Data: Abnormal lab results 11/29/18 Range/Units 07:12 Hct 39.9 L (40.0-50.0) % RDW 14.4 H (11.8-14.1) % Absolute Neutrophils 7.28 H (1.2-6.7) k/cumm Absolute Monocytes 1.32 H (0.11-0.7) k/cumm Vital Signs Temperature 98.1 F 11/29/18 07:30 Temperature Source Tympanic 11/29/18 07:30 Pulse 89 11/29/18 07:30 Pulse Rhythm Regular 11/29/18 01:08 Pulse 90 11/27/18 15:10 Respiratory Rate 19 11/29/18 07:30 Respiratory Effort Non-Labored 11/29/18 01:08 Respiratory Depth Normal 11/29/18 01:08 Respiratory Pattern Normal 11/29/18 01:08 Blood Pressure 152/101 H 11/29/18 07:30 Blood Pressure Mean 116 11/27/18 19:30 Blood Pressure Position Supine 11/27/18 13:49 Pulse Oximetry 96 11/29/18 08:10 Oxygen Delivery Method Room Air 11/29/18 08:10 Oxygen Flow Rate 0 11/29/18 08:10 Pain Level 3 11/29/18 07:30 Comment 11/29/18 07:30 Intake & Output 11/28/18 11/28/18 11/29/18 11:59 23:59 11:59 Intake Total 2388.25 / 3722.417 1334.167 / 3722.417 2007.084 / 2007.084 Output Total 500 / 2000 1500 / 2000 450 / 450 Balance 1888.25 / 1722.417 -165.833 / 6814.681 6101.084 / 1557.084 Intake: IV 2268.25 / 3122.417 854.167 / 3122.417 1527.084 / 1527.084 Oral 120 / 600 480 / 600 480 / 480 Output: Urine 500 / 2000 1500 / 2000 450 / 450 Other: Urine Color Straw Yellow Dark Yas Urine Appearance Clear Clear Clear Urine Odor Normal Normal None Voiding Methods Urinal Urinal Urinal Laboratory Results WBC 10.11 k/cumm (4.4-10.8) 11/29/18 07:12 RBC 4.84 m/cumm (4.50-6.00) 11/29/18 07:12 Hgb 13.5 g/dL (13.5-17.5) 11/29/18 07:12 Hct 39.9 % (40.0-50.0) L 11/29/18 07:12 MCV 82.4 fL (80-95) 11/29/18 07:12 MCH 27.9 pg (27.0-33.0) 11/29/18 07:12 MCHC 33.8 g/dL (32.0-36.0) 11/29/18 07:12 RDW 14.4 % (11.8-14.1) H 11/29/18 07:12 Plt Count 268 x1000/uL (130-400) 11/29/18 07:12 MPV 9.6 fL (8.0-11.0) 11/29/18 07:12 Immature Gran % 0.3 11/29/18 07:12 Neutrophils % 71.9 11/29/18 07:12 Lymphocytes % 12.6 11/29/18 07:12 Monocytes % 13.1 11/29/18 07:12 Eosinophils % 2.0 11/29/18 07:12 Basophils % 0.1 11/29/18 07:12 Absolute Neutrophils 7.28 k/cumm (1.2-6.7) H 11/29/18 07:12 Absolute Lymphocytes 1.27 k/cumm (1.2-3.4) 11/29/18 07:12 Absolute Monocytes 1.32 k/cumm (0.11-0.7) H 11/29/18 07:12 Absolute Eosinophils 0.20 k/cumm (0.0-0.7) 11/29/18 07:12 Absolute Basophils 0.01 k/cumm (0.0-0.2) 11/29/18 07:12 Sodium 137 mmol/L (136-145) 11/27/18 13:52 Potassium 4.0 mmol/L (3.5-5.1) 11/27/18 13:52 Chloride 100 mmol/L (98-107) 11/27/18 13:52 Carbon Dioxide 26.8 mmol/L (21.0-32.0) 11/27/18 13:52 Anion Gap 10.2 mmol/L (3-11) 11/27/18 13:52 BUN 10 mg/dL (7-18) 11/27/18 13:52 Creatinine 0.64 mg/dL (0.70-1.30) L 11/27/18 13:52 Estimated GFR/1.73 m2 >= 60.00 (mL/min/1.73m2) 11/27/18 13:52 Glucose 105 mg/dL (70-100) H 11/27/18 13:52 Lactate 1.2 mmol/l (0.6-1.4) 11/27/18 17:04 Calcium 9.0 mg/dL (8.5-10.1) 11/27/18 13:52 Magnesium 1.6 mg/dL (1.8-2.4) L 11/27/18 13:52 Total Bilirubin 0.5 mg/dL (0.2-1.0) 11/27/18 13:52 AST 18 U/L (15-37) 11/27/18 13:52 ALT 47 U/L (12-78) 11/27/18 13:52 Alkaline Phosphatase 72 U/L (46-116) 11/27/18 13:52 Troponin I < 0.05 ng/mL (0.00-0.06) 11/27/18 13:52 Total Protein 8.2 g/dL (6.4-8.2) 11/27/18 13:52 Albumin 3.2 g/dL (3.4-5.0) L 11/27/18 13:52 Lipase 48 U/L (73-393) L 11/27/18 13:52
[2018-11-29] MEDS: Ketorolac 30 MG/ML VIAL IVP (17:15)
--- NOTE | 2018-11-29 17:24 | INITIAL_ITS ---
Care Management Initial Assess REASON FOR HOSPITALIZATION:: Acute Diverticulitis with Phlegmon PAST MEDICAL HISTORY/PAST SURGICAL HISTORY:: Medical: Hypertension. No significant surgical history PREVIOUS FUNCTIONAL STATUS/SOCIAL/FAMILY SUPPORTS:: Lives with his at their home in [place]. 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 CURRENT FUNCTIONAL STATUS:: Lying in bed. States he has been in pain but it seems a little better. ADVANCE DIRECTIVES:: None on file Has patient been provided with information about the portal?: No Did the patient sign up for the portal?: No CODE STATUS:: Full Code INSURANCE COVERAGE / FINANCIAL ISSUES:: Medicaid CURRENT HOME/COMMUNITY SERVICES/EQUIPMENT:: None at this time PRIMARY CARE PHYSICIAN:: [facility] - AKIRA Swenson POTENTIAL DISCHARGE NEEDS:: Physical limitations PATIENT/FAMILY EDUCATION NEEDS:: Discharge instructions ANTICIPATED BARRIERS TO DISCHARGE:: None identified TRANSPORTATION:: will transport. PLAN:: Kojo will return home when medically cleared for discharge. No services needed. Readmission - Within the Past 30 Days Yes or No: N
--- NOTE | 2018-11-29 17:25 | PDOC.CMPRO ---
Care Management Progress Note S/O: Sitting up and had just taken a walk in the hallway. States he is feeling better today. Informed his Joe he will be out of work for a while. A: 53 y.o. male admitted for acute diverticulitis with phlegmon P: Kojo will return home when medically cleared for discharge and no services will be needed. will transport.
[2018-11-29] MEDS: Docusate Sodium 100 MG CAP PO (19:48)
[2018-11-30] MEDS: Lactated Ringers 1,000 ML 125 ML IV (01:53)
[2018-11-30] MEDS: metroNIDAZOLE 500 MG/100 ML BAG 100 MG IVPB ×2 (01:53→09:46)
[2018-11-30 03:15] VITALS: BP 142/92; PULSE 86; RESP 20; TEMP 37.3; O2SAT 94
[2018-11-30] MEDS: CIPROFLOXACIN 400 MG/200 ML BAG 200 MG IVPB (05:47)
[2018-11-30 07:34] VITALS: BP 166/108; PULSE 92; RESP 18; TEMP 36.5; O2SAT 97
[2018-11-30 07:43] LABS: Abs Immature Grans 0.02 k/cumm (0.0-0.09); Absolute Basophil Count 0.02 k/cumm (0.0-0.2); Absolute Eosinophil Count 0.23 k/cumm (0.0-0.7); Absolute Lymphocyte Count 1.19 k/cumm (1.2-3.4); Absolute Monocyte Count 0.89 k/cumm (0.11-0.7); Absolute Neutrophil Count 6.96 k/cumm (1.2-6.7); Basophils % 0.2; Eosinophils % 2.5; HCT 39.9 % (40.0-50.0); HGB 13.4 g/dL (13.5-17.5); Immature Grans % 0.2; Lymphocytes % 12.8; Mean Corp. HGB Concentration 33.6 g/dL (32.0-36.0); Mean Corpuscular Hemoglobin 27.7 pg (27.0-33.0); Mean Corpuscular Volume 82.6 fL (80-95); Mean Platelet Volume 9.7 fL (8.0-11.0); Monocytes % 9.6; Neutrophils % 74.7; Platelet Count 278 x1000/uL (130-400); RBC 4.83 m/cumm (4.50-6.00); RBC Distribution Width 14.4 % (11.8-14.1); White Blood Cell Count 9.31 k/cumm (4.4-10.8)
[2018-11-30] MEDS: Docusate Sodium 100 MG CAP PO (07:48)
[2018-11-30] MEDS: amLODIPine 5 MG TAB PO (07:48)
[2018-11-30] MEDS: Lisinopril 20 MG TAB 40 MG PO (07:48)
[2018-11-30] MEDS: Heparin 5,000 UNITS/ML VIAL 5000 UNITS SC (07:51)
--- NOTE | 2018-11-30 08:26 | W.PM.PROGNOT ---
Date of Service Date of service: 11/30/18 Time of Service: 08:26 Assessment and Plan (1) Diverticulitis of large intestine with perforation and abscess without bleeding: Current visit: Yes Status: Acute DIET- Tolerating soft diet well. No BMs, (+) Flatus Afebrile Encouraged ambulation and activity as tolerated. Urinating without difficulty. Continue IV antibitoics, will transition to PO meds upon D/C home. Disposition- Possible D/C home later today. Subjective Interval history since last seen: I am doing much better than I was. He reports passing flatus. No BM. Urinating without difficulty. Abdominal pain is improving. Exam Const General: cooperative, healthy appearing and comfortable Orientation: alert and oriented x3 Resp Effort & Inspection: normal respiratory effort, no audible wheezes and no cough GI Inspection: normal to inspection, non-distended and obesity Palpation: soft, no guarding and nontender Auscultation: hypoactive bowel sounds Objective Objective Clinical Data: Abnormal lab results 11/30/18 Range/Units 07:20 Hgb 13.4 L (13.5-17.5) g/dL Hct 39.9 L (40.0-50.0) % RDW 14.4 H (11.8-14.1) % Absolute Neutrophils 6.96 H (1.2-6.7) k/cumm Absolute Lymphocytes 1.19 L (1.2-3.4) k/cumm Absolute Monocytes 0.89 H (0.11-0.7) k/cumm Vital Signs Temperature 36.5 C 11/30/18 07:34 Temperature Source Tympanic 11/30/18 07:34 Pulse 92 H 11/30/18 07:34 Pulse Rhythm Regular 11/30/18 07:42 Pulse 90 11/27/18 15:10 Respiratory Rate 18 11/30/18 07:34 Respiratory Effort Non-Labored 11/30/18 07:42 Respiratory Depth Normal 11/30/18 07:42 Respiratory Pattern Normal 11/30/18 07:42 Blood Pressure 166/108 H 11/30/18 07:34 Blood Pressure Mean 116 11/27/18 19:30 Blood Pressure Position Supine 11/27/18 13:49 Pulse Oximetry 97 11/30/18 07:34 Oxygen Delivery Method Room Air 11/30/18 07:34 Oxygen Flow Rate 0 11/30/18 07:34 Pain Level 0 11/30/18 03:15 Comment 11/30/18 03:15 Intake & Output 11/29/18 11/30/18 11/30/18 18:59 06:59 18:59 Intake Total 1717.500 / 4465.417 2747.917 / 4465.417 Output Total 1000 / 4350 3350 / 4350 450 / 450 Balance 717.500 / 115.417 -602.083 / 115.417 -450 / -450 Intake: IV 997.500 / 2945.417 1947.917 / 2945.417 Oral 720 / 1520 800 / 1520 Output: Urine 1000 / 4350 3350 / 4350 450 / 450 Other: Urine Color Straw Yellow Yellow Urine Appearance Clear Clear Clear Urine Odor None None Comment Two diffrent voids 300 in the toilet, and 200 in the urinal. Voiding Methods Toilet Urinal Urinal Urinal Laboratory Results WBC 9.31 k/cumm (4.4-10.8) 11/30/18 07:20 RBC 4.83 m/cumm (4.50-6.00) 11/30/18 07:20 Hgb 13.4 g/dL (13.5-17.5) L 11/30/18 07:20 Hct 39.9 % (40.0-50.0) L 11/30/18 07:20 MCV 82.6 fL (80-95) 11/30/18 07:20 MCH 27.7 pg (27.0-33.0) 11/30/18 07:20 MCHC 33.6 g/dL (32.0-36.0) 11/30/18 07:20 RDW 14.4 % (11.8-14.1) H 11/30/18 07:20 Plt Count 278 x1000/uL (130-400) 11/30/18 07:20 MPV 9.7 fL (8.0-11.0) 11/30/18 07:20 Immature Gran % 0.2 11/30/18 07:20 Neutrophils % 74.7 11/30/18 07:20 Lymphocytes % 12.8 11/30/18 07:20 Monocytes % 9.6 11/30/18 07:20 Eosinophils % 2.5 11/30/18 07:20 Basophils % 0.2 11/30/18 07:20 Absolute Neutrophils 6.96 k/cumm (1.2-6.7) H 11/30/18 07:20 Absolute Lymphocytes 1.19 k/cumm (1.2-3.4) L 11/30/18 07:20 Absolute Monocytes 0.89 k/cumm (0.11-0.7) H 11/30/18 07:20 Absolute Eosinophils 0.23 k/cumm (0.0-0.7) 11/30/18 07:20 Absolute Basophils 0.02 k/cumm (0.0-0.2) 11/30/18 07:20 Sodium 137 mmol/L (136-145) 11/27/18 13:52 Potassium 4.0 mmol/L (3.5-5.1) 11/27/18 13:52 Chloride 100 mmol/L (98-107) 11/27/18 13:52 Carbon Dioxide 26.8 mmol/L (21.0-32.0) 11/27/18 13:52 Anion Gap 10.2 mmol/L (3-11) 11/27/18 13:52 BUN 10 mg/dL (7-18) 11/27/18 13:52 Creatinine 0.64 mg/dL (0.70-1.30) L 11/27/18 13:52 Estimated GFR/1.73 m2 >= 60.00 (mL/min/1.73m2) 11/27/18 13:52 Glucose 105 mg/dL (70-100) H 11/27/18 13:52 Lactate 1.2 mmol/l (0.6-1.4) 11/27/18 17:04 Calcium 9.0 mg/dL (8.5-10.1) 11/27/18 13:52 Magnesium 1.6 mg/dL (1.8-2.4) L 11/27/18 13:52 Total Bilirubin 0.5 mg/dL (0.2-1.0) 11/27/18 13:52 AST 18 U/L (15-37) 11/27/18 13:52 ALT 47 U/L (12-78) 11/27/18 13:52 Alkaline Phosphatase 72 U/L (46-116) 11/27/18 13:52 Troponin I < 0.05 ng/mL (0.00-0.06) 11/27/18 13:52 Total Protein 8.2 g/dL (6.4-8.2) 11/27/18 13:52 Albumin 3.2 g/dL (3.4-5.0) L 11/27/18 13:52 Lipase 48 U/L (73-393) L 11/27/18 13:52
[2018-11-30 09:20] VITALS: O2SAT 97
[2018-11-30 10:00] VITALS: O2SAT 97
[2018-11-30 11:30] VITALS: BP 155/92; PULSE 99; RESP 18; TEMP 36.6; O2SAT 95
--- NOTE | 2018-11-30 11:57 | CMPROGNOTE_ITS ---
- If Service Date Differs Date of service: 11/30/18 Time of Service: 11:55 Care Management Progress Note S/O: Kojo was dressed and ready for discharge when CM came to see him. He stated he was feeling much better and that he did not need any additional services at home. A: 53 y.o. male admitted to [facility] for acute diverticulitis P: Kojo will be discharged home today. His will transport via private vehicle.He will follow up with his PCP, surgeon and discharge plan of care.
== END 2018-11-30 13:13 | disposition home or self-care (01) | DRG 392 ==
LOC: ER 17:58 → MS 20:01
PROVIDERS: Admitting Provider Surgery; Emergency Provider Physician Assistant; PCP Specialist/Technologist Athletic Trainer; Visit Provider Surgery
DX: K57.20 Diverticulitis of large intestine with perforation and abscess without bleeding (principal); I10 Essential (primary) hypertension; R51 Headache; R07.9 Chest pain, unspecified; R10.31 Right lower quadrant pain
CPT/HCPCS: 36410; 36415; 71275; 74177; 80053; 83690; 87040; 93005; 96361; 96365; 96367; 99223; 99231; 99232; 99238; 99285; 70450; 71046; 83605; 83735; 84484; 85025; 93010; G0378; J0360; J0744; J1644; J1885; J2405; J3490

== ENCOUNTER 2019-01-29 06:51 | Day surgery (SDC) | payer OTHER, SELFPAY ==
[2019-01-29 07:03] VITALS: BP 141/99; PULSE 87; RESP 18; TEMP 36.8; O2SAT 93
[2019-01-29] MEDS: Lactated Ringers 1,000 ML 80 ML IV (07:36)
--- NOTE | 2019-01-29 08:31 | W.PM.DSUDISC ---
Discharge Plan Disposition Patient Disposition: HOME Condition: Good Discharge Details Reason For Visit: Colon screening Attending Provider: Elaine Allen Primary Care Provider: Sajan Barker Home Meds and New Rx's Prescriptions: Continued gabapentin 300 mg capsule 300 mg PO QHS PRN (Reason: restless leg(s)) RF: 0 docusate sodium [Colace] 100 mg capsule 100 mg PO DAILY RF: 0 lisinopril 40 mg Tablet 40 mg PO DAILY RF: 0 amlodipine 5 mg Tablet 5 mg PO DAILY RF: 0 Discontinued polyethylene glycol 3350 17 gram/dose powder 238 g PO ONCE Qty: 238 RF: 0 bisacodyl 5 mg tablet,delayed release (DR/EC) 5 mg PO ONCE Qty: 4 RF: 0 Discharge Instructions Additional Instructions: Findings: Your colonoscopy showed diverticulosis. Follow up: Plan for colonoscopy in 10 years for screening or sooner if symptoms arise. Please call if you develop: fevers >101.5 Nausea or Vomiting Abdominal pain that is not transient DAY SURGERY UNIT POST COLONOSCOPY INSTRUCTIONS 1. Because there will be medication in your system for the next 24 hours, you may feel a little sleepy. Your coordination will be affected. Therefore: a. Do not drive or operate dangerous equipment for 24 hours. b. Do not drink alcohol beverages for 24 hours (not even beer). c. Plan to go home and rest for the day. 2. Generally there are no restrictions on your activity after a day or so has gone by, but you may feel a bit fatigued for a few days. 3 After you arrive home you may have a light meal and return to a normal diet as you can tolerate it without feeling sick to your stomach. 4. After surgery, you may feel pain or discomfort. This should be only transient, but if it persists please contact your doctor. 5. If there are any questions regarding the findings of your procedure, please feel free to contact your doctor. 6. If you are unable to contact your doctor with a problem, contact the hospital at [phone]. 7. Continue all your regular medications unless directed otherwise. I understand the above instructions and have no questions. Signature of Patient or Responsible Adult Escort Date/Time Name of Responsible Adult Escort Signature of Nurse Date/Time Activity:: Activity as Tolerated Diet:: As Tolerated Discharge Orders Discharge Orders: Discharge Order (Routine); Ordered 01/29/19 Ordered By: Elaine Allen DS: Diagnosis Discharge Diagnosis (1) Diverticulosis: Status: Acute
[2019-01-29 09:20] VITALS: BP 137/94; PULSE 77; RESP 16; TEMP 36.3; O2SAT 94
--- NOTE | 2019-01-29 11:11 | COLE_ITS ---
REPORT OF OPERATIVE PROCEDURE DATE OF PROCEDURE January 29, 2019 PREOPERATIVE DIAGNOSES 1. Need for colon screening. 2. History of perforated diverticulitis. POSTOPERATIVE DIAGNOSIS Diverticulosis. PROCEDURE Colonoscopy. SURGEON Elaine Allen M.D. ANESTHESIA General. INDICATIONS This is a 53-year-old man who was admitted at the end of October with diverticulitis with a contained pe rforation. He improved with antibiotic therapy. The patient has not had a prior colonoscopy. There is no family history of inflammatory bowel disease or colon cancer. PROCEDURE DESCRIPTION He was placed in the left Hanks position. Propofol was titrated to sedation. Digital rectal examinatio n revealed no abnormities. The scope was advanced to the cecum without difficulty. His prep was excel lent. The ileocecal valve was intubated to reveal a normal distal ileum. The scope was slowly withdr awn with no abnormalities seen within the ascending, transverse colon or descending colon. His sigmoi d region revealed moderate diverticular change, there was minimal mucosal inflammation but no other i ssues such as stricture. The rectum was normal, including on retroflexed view. He tolerated the proce dure well and was stable to Recovery. He will need a followup screening again in 10 years or sooner if symptoms indicate. Technically sigmo id resection would be considered for a patient with perforated diverticulitis, but the patient is con sidered a somewhat high-risk surgical patient, so at this point, we will plan to not proceed operativ brijesh. CC: Amber Swenson.
== END 2019-01-29 09:28 | disposition home or self-care (01) ==
PROVIDERS: PCP Specialist/Technologist Athletic Trainer; Visit Provider Surgery
PROC: 0DJD8ZZ Inspection of Lower Intestinal Tract, Via Natural or Artificial Opening Endoscopic (ICD-10-PCS; CPT 45378; principal; 2019-01-29 08:15)
DX: Z12.11 Encounter for screening for malignant neoplasm of colon (principal); Z87.19 Personal history of other diseases of the digestive system
CPT/HCPCS: 45378

== ENCOUNTER 2019-03-13 11:43 | Inpatient (IN) | payer OTHER, SELFPAY ==
[2019-03-13 11:48] VITALS: BP 166/99; PULSE 99; RESP 20; TEMP 36; O2SAT 97
--- NOTE | 2019-03-13 12:12 | ED.GENADUL_ITS ---
Discharge Plan Disposition Patient Disposition: [facility] INPATIENT Condition: Stable Discharge Details Chief Complaint: Nk/Back Pain Clinical Impression: Intractable back pain, Lumbar disc herniation Admit Date/Time: 03/13/19 18:43 Admit Provider: Tate Ly Attending Provider: Tate Ly Primary Care Provider: Sajan Barker ED Provider: Kyung Randhawa Discharge Instructions Forms: Nursing Discharge Form Referrals: Sajan Barker [Primary Care Provider] - Discharge Data Discharge Date/Time-TO BE ENTERED AT DEPARTURE: 03/13/19 19:54 Medical Decision Making 1200 -- 53-year-old male with a history of restless leg syndrome on gabapentin presents with right-sided lower back pain with radiation to his buttock and around to his right leg down to his knee since this morning. Patient appears uncomfortable but nontoxic. Afebrile. He has tenderness palpation of his right lumbar region and right buttock. No focal deficits. Neurovascular intact. Differential diagnosis appears most likely consistent with sciatica versus muscle strain or sprain. Does not appear consistent with acute neurological injury or fracture and thus do not see an indication for further imaging i ncluding x-ray, CT or MRI. Will give a dose of prednisone p.o., Valium p.o., Toradol IM and place a Lidoderm patch and reassess. 1330 --patient denies any relief of pain. He did appear more comfortable able to move around in stretcher but he states he is no better. He also admits to some nausea. Will give a dose of Zofran and then a dose of oxycodone and reassess. 1510 -- Pt states his right lower back and right thigh pain is worse. Will place an iv and give a dose of dilaudid IV and reassess. Will check screening labs and obtain CT lumbar spine to rule out any acute findings. Labs and imaging reviewed. Labs unremarkable. CT notes L2-3 disc herniation. Again patient has no focal deficits or bowel or bladder incontinence. Patient's pain minimally improved after Dilaudid. Will admit patient for pain control. 1730 --Case discussed with Dr. Ly -accepts patient for admission. Medical Records Medical records reviewed: Yes I reviewed the patient's medical records. Imaging Data Radiologic Study: Radiologist's impression: CT Lumbar Spine Without Contrast Exam date and time: 03/13/2019 4:57 PM Clinical history: 53 years old, male; Low back pain TECHNIQUE: Imaging protocol: Computed tomography images of the lumbar spine without contrast. COMPARISON: No relevant prior studies available. FINDINGS: Vertebrae: No acute fracture. Normal alignment. L1-L2: No disc herniation. No spinal stenosis. No neural foraminal narrowing. L2-L3: Broad-based posterior disc bulge with mild flattening of the thecal sac. Large right lateral disc herniation extending into the right neural foramen is intimately associated with the exiting right nerve root. L3-L4: No disc herniation. No spinal stenosis. No neural foraminal narrowing. L4-L5: No disc herniation. No spinal stenosis. No neural foraminal narrowing. L5-S1: No disc herniation. No spinal stenosis. No neural foraminal narrowing. Soft tissues: Left nephrolithiasis atherosclerotic disease. Atherosclerotic disease. IMPRESSION: Right lateral disc herniation at L2-3 intimately associated with the right exiting nerve root. Broad-based disc bulge at L2-3 flattening the anterior thecal sac. HPI General Mode of arrival: ambulatory . Date/Time Provider Initiated Documentation: 03/13/19 11:44 . Limitations to Documentation: no limitations . Information obtained by: patient . HPI Narrative: Patient is a 53-year-old male presents with right-sided back pain with radiation down his right leg to his knee since this morning. 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 He states he was trying to push the piping forcefully and bend it. He states he woke this morning with this right-sided lower back pain which radiates down into his right buttock and then around to the front of his leg down to his knee. He states the pain is worse with any movement. He denies any fever, nausea, vomiting, abdominal pain, saddle anesthesia, bowel or bladder incontinence, leg weakness or numbness. He took 1 of his gabapentin that he takes for his restless leg disease but denies any relief with this. He last took ibuprofen over 5 hours ago without relief. Related Data Home Medications Medication Instructions Recorded Confirmed amlodipine 5 mg PO DAILY 11/27/18 03/13/19 lisinopril 40 mg PO DAILY 11/27/18 03/13/19 docusate sodium 100 mg capsule 100 mg PO DAILY 12/07/18 03/13/19 gabapentin 300 mg capsule 300 mg PO QHS PRN 12/07/18 03/13/19 Allergies Allergy/AdvReac Type Severity Reaction Status Date / Time No Known Allergies Allergy Verified 03/13/19 11:53 General Stated Complaint: Nk/Back Pain RICHARD: 4 Review of Systems Review of Systems ROS Unobtainable: All systems reviewed & are unremarkable except as noted in HPI and below Constitutional Constitutional: Reports as per HPI, Denies chills and Denies fever(s) Eyes Eyes: Denies blurry vision ENT Ears, Nose, Mouth, and Throat: Denies dizziness, Denies sore throat and Denies throat swelling Cardiovascular Cardiovascular: Denies chest pain and Denies dyspnea Respiratory Respiratory: Denies cough and Denies dyspnea Gastrointestinal Gastrointestinal: Denies abdominal pain, Denies diarrhea and Denies vomiting Genitourinary Genitourinary: Denies hematuria and Denies dysuria Musculoskeletal Musculoskeletal: Reports back pain and Denies numbness Integumentary/Breasts Skin/Breast: Denies lesions and Denies rash Neurologic Neurologic: Denies dizziness, Denies focal weakness and Denies numbness Allergic/Immunologic Allergic/Immunologic: Denies throat swelling [facility] Medical History Diverticulitis of large intestine with perforation and abscess without bleeding (Acute) HTN (hypertension) (Chronic) Vertigo (Acute) Surgical History History of colonoscopy (Chronic) 01/29/19 No significant past surgical history (Acute) Family History Brother Heart disease Social History Smoking/Tobacco Use Status: Never Alcohol Intake: current Alcohol Intake frequency: holidays/special occasions only Drug use: Rarely Substance use type: marijuana Details: 1 joint per day Do you feel safe at home: Yes Do you feel safe in your relationship?: Yes 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 [place] Exam Const General: cooperative, healthy appearing and uncomfortable Orientation: alert, awake and oriented x3 HENMT Head: normal to inspection Face and sinus: normal facial exam Eyes General: appearance normal, both eyes and all related structures EOM: EOM intact bilaterally Neck Neck: normal visual inspection and No submandibular swelling Lymphatic: no lymphadenopathy noted Chest Chest: normal inspection of the chest and no tenderness Resp Effort & Inspection: normal respiratory effort and able to speak in complete sentences Auscultation: clear to auscultation bilaterally Cardio Rate: regular rate Rhythm: regular rhythm GI Inspection: normal to inspection and obesity Palpation: soft, not firm, not rigid and nontender Auscultation: normal bowel sounds Back/Spine/Pelvis Thoracic/Lumbar Spine: thoracic and lumbar spine normal to inspection, straight leg raise negative bilaterally, paraspinal tenderness (R lumbar), No thoracic spinal tenderness and No lumbar spinal tenderness Pelvis: no pain with anterior-posterior compression, no buttock ecchymosis, buttock tenderness on the right and no buttock swelling Skin General skin exam: no rashes or lesions noted Neuro General: alert, awake and oriented x3 Cognition: normal cognition Speech: speech normal Motor: muscle tone normal throughout Sensory Exam: no sensory deficits noted DTR's: Rt Patellar: 1+, Lt Patellar: 1+, Rt Ankle: 1+ and Lt Ankle: 1+ Plantar Reflexes: Equivocal: bilateral (negative babinski b/l ) Extrem General: normal to inspection, full ROM, normal capillary refill, no calf tenderness bilaterally and no edema Other: B/L DP/PT pulses intact Psych Appearance: grossly normal Mental Status: mental status grossly normal Speech and Movement: speech and movement normal Affect: normal affect Course Vital Signs Vital signs: Vital Signs Temperature 96.8 F L 03/13/19 11:48 Pulse 99 H 03/13/19 11:48 Respiratory Rate 20 03/13/19 11:48 Blood Pressure 166/99 H 03/13/19 11:48 Pulse Oximetry 97 03/13/19 11:48 Temperature 96.8 F L 03/13/19 11:48 Temperature Source Skin 03/13/19 11:48 Pulse 99 H 03/13/19 11:48 Respiratory Rate 20 03/13/19 11:48 Respiratory Effort Non-Labored 03/13/19 11:52 Blood Pressure 166/99 H 03/13/19 11:48 Blood Pressure Position Sitting 03/13/19 11:48 Pulse Oximetry 97 03/13/19 11:48 Oxygen Delivery Method Room Air 03/13/19 11:48 Oxygen Flow Rate 0 03/13/19 11:48 Pain Level 10 03/13/19 11:48
[2019-03-13] MEDS: predniSONE 20 MG TAB 60 MG PO (12:21)
[2019-03-13] MEDS: diazePAM 5 MG TAB PO (12:22)
[2019-03-13] MEDS: Ketorolac 60 MG/2 ML VIAL IM (12:27)
[2019-03-13] MEDS: Lidocaine 5% Patch 1 PATCH TP (12:28)
[2019-03-13] MEDS: Ondansetron O.D.T. 4 MG TABEF PO (13:38)
[2019-03-13] MEDS: oxyCODONE 10 MG TAB PO (14:05)
[2019-03-13] MEDS: Prochlorperazine 10 MG/2 ML VIAL IVP (15:30)
[2019-03-13] MEDS: HYDROmorphone 2 MG/ML VIAL 1 MG IVP (15:31)
--- NOTE | 2019-03-13 15:59 | DI.CT_ITS ---
EXAM: CT LUMBAR SPINE WO CLINICAL HISTORY: lower back pain, r/o acute process. TECHNIQUE: CT examination of the lumbar spine was performed utilizing multi slice acquisition and mu ltiplanar reconstruction. COMPARISON: XR CHEST 2V PA LATERAL from 11/27/2018 FINDINGS: Note is made of non-obstructing left nephrolithiasis. No bony abnormality is seen in the lumbar regio n. The contours of the intervertebral discs are poorly seen and I would have a low level of confidenc e regarding the diagnosis of disc herniation in this patient, also it would be impossible to exclude a significant disc herniation. There is a question of abnormal appearance of the disc contour at L5-S 1, L4-5, L3-4 and L2-3. If clinically appropriate, additional evaluation with MRI would be recommende d. IMPRESSION: Additional evaluation with MRI recommended. The lumbar CT findings are severely limited due to the pa tient's size.
[2019-03-13 16:24] LABS: Abs Immature Grans 0.04 k/cumm (0.0-0.09); Absolute Basophil Count 0.02 k/cumm (0.0-0.2); Absolute Lymphocyte Count 1.05 k/cumm (1.2-3.4); Absolute Neutrophil Count 10.31 k/cumm (1.2-6.7); Basophils % 0.2; HGB 14.7 g/dL (13.5-17.5); Immature Grans % 0.3; Lymphocytes % 8.8; Mean Corp. HGB Concentration 33.4 g/dL (32.0-36.0); Mean Corpuscular Hemoglobin 27.8 pg (27.0-33.0); Mean Corpuscular Volume 83.2 fL (80-95); Mean Platelet Volume 9.7 fL (8.0-11.0); Monocytes % 4.2; Neutrophils % 86.5; Platelet Count 285 x1000/uL (130-400); RBC 5.29 m/cumm (4.50-6.00); RBC Distribution Width 14.5 % (11.8-14.1); White Blood Cell Count 11.92 k/cumm (4.4-10.8)
[2019-03-13 16:36] LABS: ALT 62 U/L (16-63); AST 30 U/L (15-37); Albumin 3.8 g/dL (3.4-5.0); Alkaline Phosphatase 54 U/L (46-116); Anion Gap 9.6 mmol/L (3-11); BUN 14 mg/dL (7-18); Bilirubin, Total 0.7 mg/dL (0.2-1.0); CO2 29.4 mmol/L (21.0-32.0); CREATININE 0.74 mg/dL (0.70-1.30); Calcium 8.5 mg/dL (8.5-10.1); Chloride 102 mmol/L (98-107); Glucose 153 mg/dL (70-100); Potassium 3.4 mmol/L (3.5-5.1); Sodium 141 mmol/L (136-145); Total Protein 8.2 g/dL (6.4-8.2)
--- NOTE | 2019-03-13 17:33 | DI.VRAD_ITS ---
PROCEDURE INFORMATION: Exam: CT Lumbar Spine Without Contrast Exam date and time: 03/13/2019 4:57 PM Clinical history: 53 years old, male; Low back pain TECHNIQUE: Imaging protocol: Computed tomography images of the lumbar spine without contrast. COMPARISON: No relevant prior studies available. FINDINGS: Vertebrae: No acute fracture. Normal alignment. L1-L2: No disc herniation. No spinal stenosis. No neural foraminal narrowing. L2-L3: Broad-based posterior disc bulge with mild flattening of the thecal sac. Large right lateral disc herniation extending into the right neural foramen is intimately associated with the exiting right nerve root. L3-L4: No disc herniation. No spinal stenosis. No neural foraminal narrowing. L4-L5: No disc herniation. No spinal stenosis. No neural foraminal narrowing. L5-S1: No disc herniation. No spinal stenosis. No neural foraminal narrowing. Soft tissues: Left nephrolithiasis atherosclerotic disease. Atherosclerotic disease. IMPRESSION: Right lateral disc herniation at L2-3 intimately associated with the right exiting nerve root. Broad-based disc bulge at L2-3 flattening the anterior thecal sac. Dictated and Authenticated by: Linda Tyson MD. Ordering:SAL Tracey MD
[2019-03-13 17:39] VITALS: BP 157/94; PULSE 117; RESP 18; TEMP 36.6; O2SAT 94
--- NOTE | 2019-03-13 18:31 | HPE_ITS ---
Date of service: 03/13/19 Time of Service: 18:34 Assessment and Plan Assessment and plan (1) Radiculitis: Status: Acute Assessment and plan: L3 radiculitis without deficits. Will try Fentanyl for pain control and add Gabapentin scheduled. Usual meds otherwise. History of Present Illness History of Present Illness Chief Complaint: back pain Narrative: 53 male awoke this morning with right sided lower bacck pain with radiation to anterrior thigh. No sensory changes, no incontinence. In ER CT demonstrates large right L2-3 disc herniation with nerve root impingement. To this point patient has received Toradol, Oyxcodone and Dilaudid, along with prednisone, with little e ffect. he is admitted for further management. Review of Systems Review of Systems ROS Unobtainable: All systems reviewed & are unremarkable except as noted in HPI and below PFSH Medical History Diverticulitis of large intestine with perforation and abscess without bleeding (Acute) HTN (hypertension) (Chronic) Vertigo (Acute) Surgical History History of colonoscopy (Chronic) 01/29/19 No significant past surgical history (Acute) Family History Brother Heart disease Social History Smoking/Tobacco Use Status: Never Alcohol Intake: current Alcohol Intake frequency: holidays/special occasions only Drug use: Rarely Substance use type: marijuana Details: 1 joint per day Do you feel safe at home: Yes Do you feel safe in your relationship?: Yes 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 Home Medications and Allergies Home Medications Medication Instructions Recorded Confirmed Type amlodipine 5 mg PO DAILY 11/27/18 03/13/19 History lisinopril 40 mg PO DAILY 11/27/18 03/13/19 History docusate sodium 100 mg capsule 100 mg PO DAILY 12/07/18 03/13/19 History gabapentin 300 mg capsule 300 mg PO QHS PRN 12/07/18 03/13/19 History Allergies Allergy/AdvReac Type Severity Reaction Status Date / Time No Known Allergies Allergy Verified 03/13/19 11:53 Exam Narrative Exam Narrative: 157/94, 117, 18, 36.6. Appears uncomfortabloe with even the slightest attempt at movement. HEENT AT/NC; neck supple; lungs clear; heart tachy/regular; abdomen soft NT; extremities no edeema, pulse 2+/=; neuro motor 5/5 sensory intact touch; back is not inspected as patient is too uncomfortable to roll over. Results Labs Result diagrams: 03/13/19 16:10 03/13/19 16:10 Labs: Laboratory Results - last 24 hr 03/13/19 03/13/19 16:10 16:10 WBC 11.92 H RBC 5.29 Hgb 14.7 Hct 44.0 MCV 83.2 MCH 27.8 MCHC 33.4 RDW 14.5 H Plt Count 285 MPV 9.7 Immature Gran % 0.3 Neutrophils % 86.5 Lymphocytes % 8.8 Monocytes % 4.2 Eosinophils % 0.0 Basophils % 0.2 Absolute Neutrophils 10.31 H Absolute Lymphocytes 1.05 L Absolute Monocytes 0.50 Absolute Eosinophils 0.00 Absolute Basophils 0.02 Sodium 141 Potassium 3.4 L Chloride 102 Carbon Dioxide 29.4 Anion Gap 9.6 BUN 14 Creatinine 0.74 Estimated GFR/1.73 m2 >= 60.00 Glucose 153 H Calcium 8.5 Total Bilirubin 0.7 AST 30 ALT 62 Alkaline Phosphatase 54 Total Protein 8.2 Albumin 3.8 Last Vital Signs Temp 36.6 C 03/13/19 17:39 Pulse 117 H 03/13/19 17:39 Resp 18 03/13/19 17:39 BP 157/94 H 03/13/19 17:39 Pulse Ox 94 L 03/13/19 17:39
[2019-03-13] MEDS: fentaNYL 100 MCG/2 ML VIAL 25 MCG IVP (18:36)
[2019-03-13 19:46] VITALS: BP 157/94; PULSE 117; RESP 18; TEMP 36.6; O2SAT 94
[2019-03-13] MEDS: Cyclobenzaprine 10 MG TAB PO (20:09)
[2019-03-13 20:10] VITALS: BP 170/90; PULSE 118; RESP 16; TEMP 37.5; O2SAT 95
[2019-03-13] MEDS: Gabapentin 300 MG CAP PO (20:23)
[2019-03-13 20:25] VITALS: BP 170/90; PULSE 118; RESP 16; TEMP 37.5; O2SAT 95
--- NOTE | 2019-03-13 21:34 | NUR.NOTE ---
Nursing Note: Patient admitted to floor via stretcher from ED at 195. present with patient. Assisted to edge of stretcher with SCRAP CRUSHER assist, then stood and took minimal steps to stretcher in room. Patient groggy and dozed through admission assessment. Offered and accepted flexoril PRN for continued 9/10 lower back/leg pain from CT diagnosed bulging discs. Per pt only valuables with patient were cell phone. Oriented to room, call saul, etc. Did advise pt and to please ring if he was going to attempt to get out of the stretcher because of the large amounts of medications in his system. and patient both stated understanding. Call saul left within reach of and patient.
[2019-03-13] MEDS: Normal Saline Flush 10 ML SYR IVP (22:43)
[2019-03-13] MEDS: fentaNYL 100 MCG/2 ML VIAL IVP (22:43)
[2019-03-13 23:45] VITALS: BP 172/102; PULSE 106; RESP 16; TEMP 36.8; O2SAT 95
[2019-03-14] VITALS (8 sets, daily range): BP systolic 146–177; BP diastolic 77–100; PULSE 87–100; RESP 17–20; TEMP 31–38.2; O2SAT 95–100
[2019-03-14] MEDS: fentaNYL 100 MCG/2 ML VIAL IVP (07:50)
[2019-03-14] MEDS: Lisinopril 20 MG TAB 40 MG PO (07:51)
[2019-03-14] MEDS: Docusate Sodium 100 MG CAP PO (07:51)
[2019-03-14] MEDS: Gabapentin 300 MG CAP PO ×3 (07:51→20:04)
[2019-03-14] MEDS: Pantoprazole 40 MG TABCR PO (07:51)
[2019-03-14] MEDS: predniSONE 20 MG TAB 60 MG PO (07:51)
[2019-03-14] MEDS: amLODIPine 5 MG TAB PO (07:51)
[2019-03-14] MEDS: Normal Saline Flush 10 ML SYR IVP ×2 (07:51→23:15)
[2019-03-14] MEDS: oxyCODONE 5 MG TAB PO ×2 (11:32→21:37)
[2019-03-14] MEDS: Enoxaparin 40 MG/0.4 ML SYR SC (11:33)
--- NOTE | 2019-03-14 11:47 | PT.INIE ---
Date of service: 03/14/19 Time of Service: 10:20 PT Notes Inpatient Physical Therapy Evaluation Date: 03/14/2019 Referring Doctor: Maxim Sarmiento MD PT Orders: PT CONSULT: Eval and treat Precautions: Standard Patient Profile/Admitting Diagnosis: Patient awoke on 03/13/2019 with severe right-sided low back pain and right lower extremity referral. He has diagnostically confirmed right L2/L3 HNP. PMHX: Medical History Diverticulitis of large intestine with perforation and abscess without bleeding (Acute) HTN (hypertension) (Chronic) Vertigo (Acute) Surgical History History of colonoscopy (Chronic) 01/29/19 No significant past surgical history (Acute) Social History/Home Situation: Lives in a private home, with his . 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 He has a full flight of stairs, spiral style, to get to the second floor bedroom. Current Functional Limitations: He is requiring walker for ambulation for pain management, requires close supervision for all transfers and functional mobility. He has severe pain with movement transfers ambulation, and he has poor tolerance to any functional task due to his pain level. Equipment Owned/DME: None Subjective: Patient reporting that he awoke on 03/13/2019 with severe right low back pain and anterior right thigh discomfort. He recalls the day prior at work he was lifting on heavy objects, which is something he generally does not do, as he is usually sitting operating machinery. He has no history of back pain. His pain is primarily localized to the right low back and surrounding the right knee and anterior thigh. He is not comfortable sitting, he is more comfortable lying on his back. However, even on his back he is really struggling with comfort level. He is concerned about his ability to return to work. Objective: General Observation: Lying supine in hospital bed, head of bed elevated about 30 degrees Mental Status: A&O x3 Pain: Ranging from 5-10/10. Begins at 10/10, ending at 5/10, following intervention. Vital Signs: BP: 185/93. HR: 103 ROM: Right Upper Extremity: Grossly WNL Left Upper Extremity: Grossly WNL Right Lower Extremity: Right hip flexion limited to 100 degrees, IR to 20 degrees, ER to 20 degrees, due to provocation of right low back and right knee radiculopathy. Right knee and ankle WNL. Left Lower Extremity: WNL Strength: Right Upper Extremity: Grossly WNL Left Upper Extremity: Grossly WNL Right Lower Extremity: Right dorsiflexion/plantarflexion is 5/5 but induces right low back pain due to resistance, hamstring and quad is at least 4/5 limited by pain, hip flexion is at least 3/5 unable to provide resistance due to pain level, unable to assess activation of hip extension abduction due to pain level, but he is able to perform isometric contractions of said structures. Left Lower Extremity: Grossly WNL Sensation: Intact to light touch and pressure throughout the right lower extremity Neuro: Myotomes and dermatomes are intact. SLR to 20 degrees with provocation of right low back pain, with relief of molar contraction. Bed Mobility/Transfers: Supervision with bed mobility, supervision with sit to stand and vice versa at walker for pain management, ambulates 40 feet with walker to decompress low back for pain management. Gait: Requires use of walker for lumbar decompression for pain management. Balance: Static Sitting: Good Dynamic Sitting: Good Static Standing: Good Dynamic Standing: Good Special Tests: Mobility Limitations Standardized Measure [facility] 6 clicks Basic Mobility Inpatient Short Form: 46% disability - A little assistance with all components of questionnaire. Informed Consent/Education: Patient instructed in purpose of PT consult and plan of care. Treatment: [id number]: Passive right LE mobility to encourage general fascial mobility and desensitization to the lumbosacral region to include: Mulligan SLR, pain-free right unilateral [id number], and gentle hip rotation movement, STM throughout the right lumbosacral region. Assessment: Patient is a 53 year old male referred to physical therapy services with the diagnosis of L2/L3 HNP and right lower extremity radiculopathy. Patient presents with clinical signs and symptoms consistent with referred diagnosis, as demonstrated by the following impairment level findings: Right lower extremity radiculopathy, within the L2/L3 distribution. Limited lumbar range of motion, soft tissue dysfunction to the lumbosacral region, and limited right hip mobility secondary to pain, and movement dysfunction. Impairments are contributing to the following functional limitations: Pain and difficulty with bed mobility, transfers and ambulation, requiring minimal assistance due to discomfort. He requires walker to allow for lumbar decompression, and pain management with functional movements. Patient requires skilled PT intervention for pain management, and functional mobility improvements so he is able to safely discharge home. Patient is assessed as a Low 26694 x Moderate 35358 High 50819 complexity based on the following: History: See comorbidities Examination: See above impairments and functional limitations Presentation: Evolving Decision Making: Easy,[facility] 46% disability Goals: Goals X1 week 1. Supine-Sit independent 2. Sit-Supine independent 3. Sit-Stand independent at walker 4. Stand-Sit independent at walker 5. Bed-Chair independent at walker 6. Chair-Bed independent walker 7. Gait independent with walker x40 feet 8. Stairs full flight, with rail, step to pattern 9. Independent with home exercise program [] 10. Balance good Plan of Care/Treatment Plan: 1-2x/day, 7 days/week x 1 week. Plan of care has been reviewed with the PHOTONICS ENGINEERING TECHNICIAN providing the service under Physical Therapy direction. Initiate Physical Therapy intervention for strengthening, bed mobility, transfers, gait, stairs, balance training, use of assistive device. DISCHARGE RECOMMENDATIONS: Home with , outpatient physical therapy referral TREATMENT CODE/TIME: 40 minutes, 12792, [id number] Documented with [employer] voice recognition software.
--- NOTE | 2019-03-14 12:03 | PHARADMIT ---
Admission Pharmacy Clinical Review Low Back pain, Code Status Full Code Current Weight Wgt-127.0 kg Renally Cleared and Narrow Therapeutic Index Meds CrCl~89 mL/min Meds-OK QTc Value / Action Taken QTc-451 (october 2018) BP Control, Fever BP-177/100 Tmax-36.8C Electrolytes reviewed Na- 141 K+3.4 DVT Prophylaxis Lovenox Opiate Usage / Scheduled Bowel Regimen Ordered Yes Yes Plt/SCr for Heparin / Enoxaparin Plts-285 SCr-0.74 INR for Warfarin na H/H stable, WBC/Bands H&H-14.7/44.0 WBC- 11.92 Antibiotic appropriateness none Cultures and Sensitivities none Surgical ABX d/c within 24 hr na DM control / Insulin Dosing BG-153 Heart Failure (Check EF%) (HERRERA's, B-Block, Diuretics) Norvasc, Lisinopril IV to PO Switch No Home Meds Reviewed Yes Home Meds Not Ordered oRDERED Comments Prednisone & SOMA ordered
--- NOTE | 2019-03-14 15:38 | W.PM.PROGNOT ---
Date of Service Date of service: 03/14/19 Time of Service: 14:00 Assessment and Plan Assessment and plan (1) Fever, unknown origin: Status: Acute Assessment and plan: patient with max temp today of 38.2. no obvious source of infection on physical exam. will add blood cultures, urine, cxr, and MRI lumbar spine. no rashes or skin lesions. no other c/o besides back pain with right thigh pain. (2) Radiculitis: Status: Acute Assessment and plan: patient with better pain control with addition of oral oxycodone, soma. continue steroids. add scheduled tylenol. will obtain MRI lumbar spine with contrast. worked with PT and was re-ambulated with walker. recommendation will be for ongoing outpatient PT at discharge. (3) Diverticulitis of large intestine with perforation and abscess without bleeding: Status: Resolved Assessment and plan: history of, stable with no active issues. was treated with course of antibiotics. should follow up outpatient with surgery as recommended. (4) Hypoxia, sleep related: Status: Acute Assessment and plan: noted to desat while sleeping. recommendations for outpatient sleep studies for suspected JOSE ANGEL. (5) Discharge planning issues: Status: Acute Assessment and plan: anticipate discharge to home with no services once medically stable. Subjective Subjective Patient reports: still having pain, pain is less, tolerating a regular diet, voiding w/o difficulty, no bowel movement and fever (spiked temp of 38.2 this afternoon, no obvious source of infection) Exam Const General: cooperative, well developed and in distress mild Nutritional Appearance: overweight Orientation: alert, awake and oriented x3 HENMT Head: normal to inspection and atraumatic Resp Effort & Inspection: normal respiratory effort Auscultation: clear to auscultation bilaterally Cardio Rate: regular rate Rhythm: regular rhythm GI Inspection: normal to inspection Palpation: soft Auscultation: normal bowel sounds Skin General skin exam: no rashes or lesions noted Lesions: no lesions Rashes: no rashes Neuro General: alert, awake and oriented x3 Cranial Nerves: CN's II-XI intact bilaterally Cognition: normal cognition Speech: speech normal Gait: gait assisted Method: walker Extrem General: normal to inspection and full ROM Psych Appearance: grossly normal Mental Status: mental status grossly normal Speech and Movement: speech and movement normal Mood: congruent mood Affect: normal affect Attitude: cooperative Thought Process: normal Thought Content: normal Insight: insight good Judgment: judgment good Objective Objective Clinical Data: Abnormal lab results 03/13/19 03/13/19 Range/Units 16:10 16:10 WBC 11.92 H (4.4-10.8) k/cumm RDW 14.5 H (11.8-14.1) % Absolute Neutrophils 10.31 H (1.2-6.7) k/cumm Absolute Lymphocytes 1.05 L (1.2-3.4) k/cumm Potassium 3.4 L (3.5-5.1) mmol/L Glucose 153 H (70-100) mg/dL Vital Signs Temperature 36.6 C 03/14/19 12:15 Temperature Source Temporal Artery Scan 03/14/19 12:15 Pulse 99 H 03/14/19 12:15 Pulse Rhythm Regular 03/14/19 07:59 Respiratory Rate 17 03/14/19 12:15 Respiratory Effort Non-Labored 03/14/19 00:15 Respiratory Depth Normal 03/14/19 00:15 Respiratory Pattern Apnea 03/14/19 07:59 Blood Pressure 152/94 H 03/14/19 12:15 Blood Pressure Position Sitting 03/13/19 11:48 Pulse Oximetry 97 03/14/19 12:15 Oxygen Delivery Method Room Air 03/14/19 12:15 Oxygen Flow Rate 40 03/14/19 13:22 Fraction of Inspired Oxygen (FIO2) 55 03/14/19 13:22 Pain Level 5 03/14/19 11:32 Comment 03/14/19 12:15 Intake & Output 03/13/19 03/14/19 03/14/19 23:59 11:59 23:59 Intake Total 120 / 120 400 / 640 240 / 640 Output Total 400 / 400 400 / 400 Balance -280 / -280 0 / 240 240 / 240 Weight 127.006 kg Intake: Oral 120 / 120 400 / 640 240 / 640 Output: Urine 400 / 400 400 / 400 Other: Urine Color Yellow Light Yas Urine Appearance Clear Clear Urine Odor Normal Normal Voiding Methods Urinal Urinal Laboratory Results WBC 11.92 k/cumm (4.4-10.8) H 03/13/19 16:10 RBC 5.29 m/cumm (4.50-6.00) 03/13/19 16:10 Hgb 14.7 g/dL (13.5-17.5) 03/13/19 16:10 Hct 44.0 % (40.0-50.0) 03/13/19 16:10 MCV 83.2 fL (80-95) 03/13/19 16:10 MCH 27.8 pg (27.0-33.0) 03/13/19 16:10 MCHC 33.4 g/dL (32.0-36.0) 03/13/19 16:10 RDW 14.5 % (11.8-14.1) H 03/13/19 16:10 Plt Count 285 x1000/uL (130-400) 03/13/19 16:10 MPV 9.7 fL (8.0-11.0) 03/13/19 16:10 Immature Gran % 0.3 03/13/19 16:10 Neutrophils % 86.5 03/13/19 16:10 Lymphocytes % 8.8 03/13/19 16:10 Monocytes % 4.2 03/13/19 16:10 Eosinophils % 0.0 03/13/19 16:10 Basophils % 0.2 03/13/19 16:10 Absolute Neutrophils 10.31 k/cumm (1.2-6.7) H 03/13/19 16:10 Absolute Lymphocytes 1.05 k/cumm (1.2-3.4) L 03/13/19 16:10 Absolute Monocytes 0.50 k/cumm (0.11-0.7) 03/13/19 16:10 Absolute Eosinophils 0.00 k/cumm (0.0-0.7) 03/13/19 16:10 Absolute Basophils 0.02 k/cumm (0.0-0.2) 03/13/19 16:10 Sodium 141 mmol/L (136-145) 03/13/19 16:10 Potassium 3.4 mmol/L (3.5-5.1) L 03/13/19 16:10 Chloride 102 mmol/L (98-107) 03/13/19 16:10 Carbon Dioxide 29.4 mmol/L (21.0-32.0) 03/13/19 16:10 Anion Gap 9.6 mmol/L (3-11) 03/13/19 16:10 BUN 14 mg/dL (7-18) 03/13/19 16:10 Creatinine 0.74 mg/dL (0.70-1.30) 03/13/19 16:10 Estimated GFR/1.73 m2 >= 60.00 (mL/min/1.73m2) 03/13/19 16:10 Glucose 153 mg/dL (70-100) H 03/13/19 16:10 Calcium 8.5 mg/dL (8.5-10.1) 03/13/19 16:10 Total Bilirubin 0.7 mg/dL (0.2-1.0) 03/13/19 16:10 AST 30 U/L (15-37) 03/13/19 16:10 ALT 62 U/L (16-63) 03/13/19 16:10 Alkaline Phosphatase 54 U/L (46-116) 03/13/19 16:10 Total Protein 8.2 g/dL (6.4-8.2) 03/13/19 16:10 Albumin 3.8 g/dL (3.4-5.0) 03/13/19 16:10
--- NOTE | 2019-03-14 16:00 | DI.RAD_ITS ---
EXAM: XR CHEST 2V PA LATERAL INDICATION: fever of unknown origin. COMPARISON: XR CHEST 2V PA LATERAL from 11/27/2018 TECHNIQUE: 2D digital imaging was performed. FINDINGS: The heart is not enlarged. The lungs are clear. No pleural effusion seen. Mediastinal contours are unremarkable. IMPRESSION: No evidence of acute process.
[2019-03-14] MEDS: Acetaminophen 325 MG TAB 650 MG PO ×2 (16:11→20:03)
[2019-03-14 16:42] LABS: Abs Immature Grans 0.07 k/cumm (0.0-0.09); Absolute Basophil Count 0.01 k/cumm (0.0-0.2); Absolute Monocyte Count 0.59 k/cumm (0.11-0.7); Absolute Neutrophil Count 12.31 k/cumm (1.2-6.7); Basophils % 0.1; HCT 43.9 % (40.0-50.0); HGB 14.6 g/dL (13.5-17.5); Immature Grans % 0.5; Lymphocytes % 5.8; Mean Corp. HGB Concentration 33.3 g/dL (32.0-36.0); Mean Corpuscular Hemoglobin 28.3 pg (27.0-33.0); Mean Corpuscular Volume 85.2 fL (80-95); Mean Platelet Volume 9.7 fL (8.0-11.0); Monocytes % 4.3; Neutrophils % 89.3; Platelet Count 303 x1000/uL (130-400); RBC 5.15 m/cumm (4.50-6.00); RBC Distribution Width 14.8 % (11.8-14.1); White Blood Cell Count 13.79 k/cumm (4.4-10.8)
[2019-03-14 16:52] LABS: Anion Gap 8.2 mmol/L (3-11); BUN 15 mg/dL (7-18); CO2 30.8 mmol/L (21.0-32.0); CREATININE 0.79 mg/dL (0.70-1.30); Calcium 8.7 mg/dL (8.5-10.1); Chloride 101 mmol/L (98-107); Glucose 171 mg/dL (70-100); Potassium 3.8 mmol/L (3.5-5.1); Sodium 140 mmol/L (136-145)
--- NOTE | 2019-03-14 18:45 | PDOC.CMIN ---
- If Service Date Differs Date of service: 03/14/19 Time of Service: 18:45 Care Management Initial Assess REASON FOR HOSPITALIZATION:: radiculitis PAST MEDICAL HISTORY/PAST SURGICAL HISTORY:: Medical History . Diverticulitis of large intestine with perforation and abscess without bleeding (Acute). HTN (hypertension) (Chronic). Vertigo (Acute). Surgical History . History of colonoscopy (Chronic). 01/29/19. No significant past surgical history (Acute) PREVIOUS FUNCTIONAL STATUS/SOCIAL/FAMILY SUPPORTS:: Kojo lives with his Clementina in his home in [facility]. 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 Kojo and Clementina do not have children. He is independent at baseline with all care and activities. CURRENT FUNCTIONAL STATUS:: Kojo was laying in bed, visibly uncomfortable. He was wincing with movement. CM asked about how the injury occurred and Kojo shared that he believes that it happened at work on Friday when he needed to lift something really heavy. CM encouraged him to share this with his employer, which he was prepared to do. Clementina was with him and encouraged the phone call as well. Kojo will likely need a walker per PT and plan to acquire one on their own. They both shared some financial concerns. They were provided with a Financial Assist packet and information about [facility]. ADVANCE DIRECTIVES:: none on file Has patient been provided with information about the portal?: No Did the patient sign up for the portal?: No CODE STATUS:: Full Code INSURANCE COVERAGE / FINANCIAL ISSUES:: [employer] CURRENT HOME/COMMUNITY SERVICES/EQUIPMENT:: none PRIMARY CARE PHYSICIAN:: Sajan Barker POTENTIAL DISCHARGE NEEDS:: Follow up with PCP and discharge plan of care PATIENT/FAMILY EDUCATION NEEDS:: Discharge plan, limitations, follow up plan, Ask Me Three. TRANSPORTATION:: via private vehicle with Clementina PLAN:: Kojo will likely be discharged with no new services. He will follow up with his PCP and discharge plan of care. He will transport with via private vehicle. CM will continue to provide support to patient, family and discharge planning needs.
[2019-03-14 19:08] LABS: Bilirubin Negative (Negative); Blood Moderate (Negative); Clarity Clear (Clear); Glucose Negative (Negative); Ketones Trace mg/dL (Negative); Leukocyte Esterase Negative (Negative); Nitrite Negative (Negative); Specific Gravity 1.025 (1.005-1.025); Urobilinogen 0.2 EU/dL (Up TO 0.2)
[2019-03-14 19:31] LABS: Bacteria Moderate HPF (Negative); C & S Indicated? Yes; Casts Negative LPF (Negative); Crystals Negative HPF (Negative); Epithelial Cells Negative HPF (Negative); Mucus Trace (Negative); Other Cells Negative (Negative)
[2019-03-15] VITALS (7 sets, daily range): BP systolic 138–154; BP diastolic 71–102; PULSE 87–109; RESP 18–20; TEMP 31–37.4; O2SAT 91–97
[2019-03-15] MEDS: oxyCODONE 5 MG TAB PO ×2 (07:00→11:35)
[2019-03-15 07:55] LABS: Anion Gap 5.5 mmol/L (3-11); BUN 17 mg/dL (7-18); CO2 35.5 mmol/L (21.0-32.0); CREATININE 0.66 mg/dL (0.70-1.30); Calcium 8.5 mg/dL (8.5-10.1); Chloride 102 mmol/L (98-107); Glucose 101 mg/dL (70-100); Potassium 3.7 mmol/L (3.5-5.1); Sodium 143 mmol/L (136-145)
[2019-03-15] MEDS: Docusate Sodium 100 MG CAP PO (07:58)
[2019-03-15] MEDS: Gabapentin 300 MG CAP PO ×3 (07:58→21:04)
[2019-03-15] MEDS: predniSONE 20 MG TAB 60 MG PO (07:58)
[2019-03-15] MEDS: amLODIPine 5 MG TAB PO (07:58)
[2019-03-15] MEDS: Acetaminophen 325 MG TAB 650 MG PO ×4 (07:59→21:04)
[2019-03-15] MEDS: Lisinopril 20 MG TAB 40 MG PO (07:59)
[2019-03-15] MEDS: Pantoprazole 40 MG TABCR PO (07:59)
[2019-03-15] MEDS: Normal Saline Flush 10 ML SYR IVP ×4 (08:00→17:12)
[2019-03-15 08:14] LABS: HCT 44.5 % (40.0-50.0); HGB 14.6 g/dL (13.5-17.5); Mean Corp. HGB Concentration 32.8 g/dL (32.0-36.0); Mean Corpuscular Hemoglobin 28.4 pg (27.0-33.0); Mean Corpuscular Volume 86.6 fL (80-95); Mean Platelet Volume 9.8 fL (8.0-11.0); Platelet Count 275 x1000/uL (130-400); RBC 5.14 m/cumm (4.50-6.00); RBC Distribution Width 14.9 % (11.8-14.1); White Blood Cell Count 14.81 k/cumm (4.4-10.8)
[2019-03-15] MEDS: POTASSIUM CHLORIDE 20 MEQ, POTASSIUM CHLORIDE 10 MEQ 30 MEQ PO (11:02)
[2019-03-15] MEDS: Enoxaparin 40 MG/0.4 ML SYR SC (11:13)
--- NOTE | 2019-03-15 12:06 | PT.INNT ---
Date of service: 03/15/19 Time of Service: 12:06 PT Notes 03/15/19 Patient not available x2 this morning for PT session. Will attempt to resume PT services this afternoon, following MRI testing.
--- NOTE | 2019-03-15 12:55 | DI.MRI_ITS ---
EXAM: MR LUMBAR SPINE WO CLINICAL HISTORY: back pain, fever, thigh radiation. TECHNIQUE: Multiplanar multisequence MRI was performed. COMPARISON: No exams were available for comparison FINDINGS: MR examination of the lumbosacral spine was performed according to the usual protocol. No significan t bony signal abnormality seen. The conus medullaris appears intact. There are mild hypertrophic de generative changes of the facet joints particularly at L4-5 and L5-S1. No significant findings at L1-2. At L2-3 there is a right lateral disc herniation with possible impingement on the right L2 nerve root At L3-4 there is moderate disc bulge with a small central disc herniation and mild broad-based right lateral disc herniation. There is probable bilateral neural foraminal stenosis. At L4-5 there is a disc bulge and probable mild bilateral neural foraminal stenosis. No focal disc he rniation. At L5-S1 there is moderate disc bulge, no disc herniation or neural foraminal stenosis. IMPRESSION: Right-sided lateral L2-3 disc herniation with possible impingement on right L2 nerve root. Small central disc herniation and mild broad-based right lateral disc herniation at L3-4. Multilevel neural foraminal stenosis, please see above discussion for findings at individual levels.
--- NOTE | 2019-03-15 16:29 | PGE_ITS ---
Date of Service Date of service: 03/15/19 Time of Service: 16:30 Assessment and Plan Assessment and plan (1) Lumbar disc herniation with radiculopathy: Status: Acute Assessment and plan: MRI back shows Right-sided lateral L2-3 disc herniation with possible impingement on right L2 nerve root. Small central disc herniation and mild broad-based right lateral disc herniation at L3-4. Multilevel neural foraminal stenosis. He has increased pain after MRI. Continue prednisone with PPI for GI protection and Soma for spasms. Add lidoderm patch and scheduled toradol. Increase oxycodone to 5-10 mg PO q4h prn. Continue PT. Will require outpatient physical therapy. (2) Fever, unknown origin: Status: Acute Assessment and plan: Had fever x1 yesterday, no further fevers. Infectious work-up negative thus far. Chest x-ray negative, urine culture with <10,000 colonies mixed gram positive conchita, blood cultures pending. Continue to monitor culture results. White blood cell count slightly elevated in the setting of steroid therapy. Does not appear to be infected. (3) Hypoxia, sleep related: Status: Acute Assessment and plan: Hypoxic at night while asleep. Trial CPAP tonight. Will need outpatient sleep study. (4) HTN (hypertension): Status: Chronic Assessment and plan: Blood pressure acceptable. Continue home regimen with amlodipine and lisinopril. (5) DVT prophylaxis: Status: Acute Assessment and plan: subcutaneous lovenox. (6) Discharge planning issues: Status: Acute Assessment and plan: He is a FULL CODE. He will require outpatient PT. This case was discussed with Dr. Rose who is in agreement. Subjective Subjective Interval history since last seen: Kojo Collins reports increased back pain after having an MRI. He continues to have pain and tingling in the anterior aspect of his right thigh. He denies bowel or bladder incontinence or saddle anesthesia. 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 He attempted to try to maneuver a large pipe, using a twisting motion and felt a pop in his back. He did not have immediate pain but awoke the following morning at 0400 and had significant lower back pain that prevented him from being able to get out of bed. He is reluctant to use pain medication, however he is encouraged to do so for now so he is able to get out of bed and work with PT. He denies shortness of breath, coughing, wheezing, chest pain/pressure, palpitations, nausea, vomiting, diarrhea. He is eating and drinking and tolerating his diet. He denies any other concerns. Exam Narrative Exam Narrative: General: middle aged, overweight man, laying in bed, appears uncomfortable. HEENT: normocephalic, atraumatic, pupils equal and round, EOMI, mucous membranes moist. Neck: supple, no JVD. Cardiovascular: heart has regular rate and rhythm, no murmur appreciated. Respiratory: respirations even and unlabored, lung sounds clear bilaterally on anterior and lateral exam. GI: +bowel sounds throughout, abdomen soft, nontender on palpation. Extremities: did not reposition patient to examine back due to discomfort. Equal range of motion to all 4 extremities. Pedal pulses palpable bilaterally, no calf swelling or tenderness. Objective Objective Clinical Data: Abnormal lab results 03/14/19 03/14/19 03/14/19 Range/Units 16:10 16:10 18:45 WBC 13.79 H (4.4-10.8) k/cumm RDW 14.8 H (11.8-14.1) % Absolute Neutrophils 12.31 H (1.2-6.7) k/cumm Absolute Lymphocytes 0.80 L (1.2-3.4) k/cumm Carbon Dioxide (21.0-32.0) mmol/L Creatinine (0.70-1.30) mg/dL Glucose 171 H (70-100) mg/dL Urine Protein 100 H (Negative) mg/dL Urine Ketones Trace H (Negative) mg/dL Urine Blood Moderate H (Negative) Urine RBC 5-10 H (0-2) 03/15/19 03/15/19 Range/Units 07:02 07:02 WBC 14.81 H (4.4-10.8) k/cumm RDW 14.9 H (11.8-14.1) % Absolute Neutrophils (1.2-6.7) k/cumm Absolute Lymphocytes (1.2-3.4) k/cumm Carbon Dioxide 35.5 H (21.0-32.0) mmol/L Creatinine 0.66 L (0.70-1.30) mg/dL Glucose 101 H D (70-100) mg/dL Urine Protein (Negative) mg/dL Urine Ketones (Negative) mg/dL Urine Blood (Negative) Urine RBC (0-2) Vital Signs Temperature 37.1 C 03/15/19 16:00 Temperature Source Tympanic 03/15/19 16:00 Pulse 109 H 03/15/19 16:00 Pulse Rhythm Regular 03/15/19 15:18 Respiratory Rate 20 03/15/19 16:00 Respiratory Effort 03/15/19 15:18 Respiratory Depth Normal 03/15/19 15:18 Respiratory Pattern Normal 03/15/19 15:18 Blood Pressure 150/71 H 03/15/19 16:00 Blood Pressure Position Sitting 03/13/19 11:48 Pulse Oximetry 91 L 03/15/19 16:00 Oxygen Delivery Method Room Air 03/15/19 16:00 Oxygen Flow Rate 0 03/15/19 16:00 Fraction of Inspired Oxygen (FIO2) 55 03/15/19 01:06 Pain Level 3 03/15/19 16:00 Comment 03/15/19 07:40 Intake & Output 03/14/19 03/15/19 03/15/19 23:59 11:59 23:59 Intake Total 490 / 890 600 / 600 Balance 490 / 490 600 / 600 Intake: IV Oral 480 / 880 600 / 600 Other: Urine Appearance Clear Laboratory Results WBC 14.81 k/cumm (4.4-10.8) H 03/15/19 07:02 RBC 5.14 m/cumm (4.50-6.00) 03/15/19 07:02 Hgb 14.6 g/dL (13.5-17.5) 03/15/19 07:02 Hct 44.5 % (40.0-50.0) 03/15/19 07:02 MCV 86.6 fL (80-95) 03/15/19 07:02 MCH 28.4 pg (27.0-33.0) 03/15/19 07:02 MCHC 32.8 g/dL (32.0-36.0) 03/15/19 07:02 RDW 14.9 % (11.8-14.1) H 03/15/19 07:02 Plt Count 275 x1000/uL (130-400) 03/15/19 07:02 MPV 9.8 fL (8.0-11.0) 03/15/19 07:02 Immature Gran % 0.5 03/14/19 16:10 Neutrophils % 89.3 03/14/19 16:10 Lymphocytes % 5.8 03/14/19 16:10 Monocytes % 4.3 03/14/19 16:10 Eosinophils % 0.0 03/14/19 16:10 Basophils % 0.1 03/14/19 16:10 Absolute Neutrophils 12.31 k/cumm (1.2-6.7) H 03/14/19 16:10 Absolute Lymphocytes 0.80 k/cumm (1.2-3.4) L 03/14/19 16:10 Absolute Monocytes 0.59 k/cumm (0.11-0.7) 03/14/19 16:10 Absolute Eosinophils 0.00 k/cumm (0.0-0.7) 03/14/19 16:10 Absolute Basophils 0.01 k/cumm (0.0-0.2) 03/14/19 16:10 Sodium 143 mmol/L (136-145) 03/15/19 07:02 Potassium 3.7 mmol/L (3.5-5.1) 03/15/19 07:02 Chloride 102 mmol/L (98-107) 03/15/19 07:02 Carbon Dioxide 35.5 mmol/L (21.0-32.0) H 03/15/19 07:02 Anion Gap 5.5 mmol/L (3-11) 03/15/19 07:02 BUN 17 mg/dL (7-18) 03/15/19 07:02 Creatinine 0.66 mg/dL (0.70-1.30) L 03/15/19 07:02 Estimated GFR/1.73 m2 >= 60.00 (mL/min/1.73m2) 03/15/19 07:02 Glucose 101 mg/dL (70-100) H D 03/15/19 07:02 Calcium 8.5 mg/dL (8.5-10.1) 03/15/19 07:02 Total Bilirubin 0.7 mg/dL (0.2-1.0) 03/13/19 16:10 AST 30 U/L (15-37) 03/13/19 16:10 ALT 62 U/L (16-63) 03/13/19 16:10 Alkaline Phosphatase 54 U/L (46-116) 03/13/19 16:10 Total Protein 8.2 g/dL (6.4-8.2) 03/13/19 16:10 Albumin 3.8 g/dL (3.4-5.0) 03/13/19 16:10 Urine Color Yellow (Yellow) 03/14/19 18:45 Urine Clarity Clear (Clear) 03/14/19 18:45 Urine pH 6.0 (5-8) 03/14/19 18:45 Ur Specific [place] 1.025 (1.005-1.025) 03/14/19 18:45 Urine Protein 100 mg/dL (Negative) H 03/14/19 18:45 Urine Ketones Trace mg/dL (Negative) H 03/14/19 18:45 Urine Blood Moderate (Negative) H 03/14/19 18:45 Urine Nitrite Negative (Negative) 03/14/19 18:45 Urine Bilirubin Negative (Negative) 03/14/19 18:45 Urine Urobilinogen 0.2 EU/dL (Up TO 0.2) 03/14/19 18:45 Ur Leukocyte Esterase Negative (Negative) 03/14/19 18:45 Urine RBC 5-10 (0-2) H 03/14/19 18:45 Urine WBC 3-5 HPF (0-5) 03/14/19 18:45 Ur Epithelial Cells Negative HPF (Negative) 03/14/19 18:45 Urine Crystals Negative HPF (Negative) 03/14/19 18:45 Urine Bacteria Moderate HPF (Negative) 03/14/19 18:45 Urine Casts Negative LPF (Negative) 03/14/19 18:45 Urine Mucus Trace (Negative) 03/14/19 18:45 Urine Other Negative (Negative) 03/14/19 18:45 Ur Culture Indicated? Yes 03/14/19 18:45 Urine Glucose Negative mg/dL (Negative) 03/14/19 18:45
--- NOTE | 2019-03-15 16:39 | PDOC.CMPRO ---
- If Service Date Differs Date of service: 03/15/19 Time of Service: 16:39 Care Management Progress Note S/O: Kojo was not in his room when CM attempted to visit with him, but his , Clementina, was in the room and met with CM regarding Kojo's plan of care. Clementina was concerned about their insurance covering the hospital stay and testing. CM discussed financial assistance, which Clementina reported that she was given the application and plans to fill it out. Clementina also reported that depending on the results of the test, this may have been a work related injury, which Kojo has already alerted his employer about. CM will continue to follow. A: Kojo is a 53 year old male admitted to [facility] on 03/13/2019 with low back pain. P: Anticipate Kojo will return home with no additional services when medically cleared. Per provider, he will return home when patient's pain is under control, possibly tomorrow. Kojo will transport home via private vehicle, driven by his . CM will continue to support patient and family with discharge planning needs.
[2019-03-15] MEDS: Lidocaine 5% Patch 1 PATCH TP (17:11)
[2019-03-15] MEDS: Ketorolac 30 MG/ML VIAL IVP (17:12)
[2019-03-16] MEDS: oxyCODONE 5 MG TAB PO ×3 (00:40→13:06)
[2019-03-16] MEDS: Ketorolac 30 MG/ML VIAL IVP ×3 (00:41→11:21)
[2019-03-16] MEDS: Normal Saline Flush 10 ML SYR IVP ×2 (00:41→06:40)
[2019-03-16 01:00] VITALS: O2SAT 92
[2019-03-16 03:15] VITALS: BP 135/95; PULSE 83; RESP 16; TEMP 36.6; O2SAT 92
[2019-03-16] MEDS: Pantoprazole 40 MG TABCR PO (06:41)
[2019-03-16] MEDS: Lidocaine Patch Removal 1 EACH TD (06:58)
[2019-03-16 07:38] LABS: HCT 45.6 % (40.0-50.0); Mean Corp. HGB Concentration 32.9 g/dL (32.0-36.0); Mean Corpuscular Hemoglobin 28.2 pg (27.0-33.0); Mean Corpuscular Volume 85.7 fL (80-95); Platelet Count 275 x1000/uL (130-400); RBC 5.32 m/cumm (4.50-6.00); RBC Distribution Width 14.7 % (11.8-14.1); White Blood Cell Count 12.75 k/cumm (4.4-10.8)
[2019-03-16 07:52] LABS: BUN 24 mg/dL (7-18); CREATININE 0.72 mg/dL (0.70-1.30); Calcium 8.4 mg/dL (8.5-10.1); Chloride 105 mmol/L (98-107); Glucose 97 mg/dL (70-100); Potassium 3.6 mmol/L (3.5-5.1); Sodium 141 mmol/L (136-145)
--- NOTE | 2019-03-16 08:12 | PT.INTREAT ---
Date of service: 03/16/19 Time of Service: 08:12 PT Notes Inpatient Physical Therapy Treatment Note [facility] Date: 03/15/19 PRECAUTIONS: LBP SUBJECTIVE: Kojo states that he was quite sore after his MRI test. He is agreeable to participating in PT this afternoon. OBJECTIVE: PAIN: Patient c/o LBP and stinging pain in his R LE. BED MOBILITY/TRANSFERS Rolling L/R: Log roll with cueing Supine-sit: S Sit-supine: Min A Sit-stand: I Stand-sit: I GAIT Assistive Device: FWW Weight bearing: Full Assist: S Distance: 40' Deviation: Use of arms for decompression MANUAL THERAPY With patient in side-lying, perform STM to right lumbar paraspinals, followed by TPR techniques and DTM through piriformis and glutes. ASSESSMENT: Patient tolerated session with complaints of increased R LE pain with transfers and gait training. Patient would benefit from continued practice with logroll technique for improved ability to perform sit<> supine transfers with decreased pain. PLAN: Continue with PTs POC TREATMENT CODE/TIME: 40 minutes; 21943, 22618 x2
[2019-03-16] MEDS: predniSONE 20 MG TAB 60 MG PO (08:47)
[2019-03-16] MEDS: Lisinopril 20 MG TAB 40 MG PO (08:48)
[2019-03-16] MEDS: Docusate Sodium 100 MG CAP PO (08:48)
[2019-03-16] MEDS: Gabapentin 300 MG CAP PO ×2 (08:48→13:06)
[2019-03-16] MEDS: amLODIPine 5 MG TAB PO (08:48)
[2019-03-16] MEDS: Acetaminophen 325 MG TAB 650 MG PO ×2 (08:48→11:21)
[2019-03-16 08:49] VITALS: BP 164/97; PULSE 95; RESP 18; TEMP 36.3; O2SAT 92
[2019-03-16 09:48] VITALS: RESP 18
[2019-03-16] MEDS: Enoxaparin 40 MG/0.4 ML SYR SC (11:21)
[2019-03-16] MEDS: Potassium Chloride 20 MEQ TABCR 40 MEQ PO (11:21)
--- NOTE | 2019-03-16 12:15 | DSE_ITS ---
Date of service: 03/16/19 Time of Service: 12:15 DS: Diagnosis Discharge Diagnosis (1) Lumbar disc herniation with radiculopathy: Status: Acute (2) Fever, unknown origin: Status: Acute (3) Hypoxia, sleep related: Status: Acute (4) HTN (hypertension): Status: Chronic (5) DVT prophylaxis: Status: Acute (6) Discharge planning issues: Status: Acute Discharge Plan Disposition Patient Disposition: HOME Condition: Stable Discharge Details Chief Complaint: Nk/Back Pain Clinical Impression: Intractable back pain, Lumbar disc herniation Reason For Visit: LOW BACK PAIN Admit Date/Time: 03/15/19 16:30 Admit Provider: Tate Ly Attending Provider: Tate Ly Primary Care Provider: Sajan Barker ED Provider: Kyung Randhawa Hospital Course Hospital Course: Kojo Collins is a 53 year old man with a past medical history of HTN, diverticulitis and RLS who presented to the ED on 03/13/19 for severe back pain. 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 He then attempted to try to maneuver a large pipe, using a twisting motion and felt a pop in his back. He did not have immediate pain but awoke the following morning at 0400 and had significant lower back pain that prevented him from being able to get out of bed. He reported that the pain was in his right lower back with radiation to his buttock and around to his right anterior thigh and down to his knee. He was afebrile. He had a CT lumbar spine which showed possible right lateral disc herniation at L2-3 with possible nerve root impingement. He was admitted to the med/surg floor for further evaluation and management. After his admission, radiology was concerned that it was possible that there may be another process occurring as his CT lumbar spine was of limited quality due to the patient's body habitus. He recommended an MRI. Mr Collins went on to have an MRI lumbar spine which showed: Right-sided lateral L2-3 disc herniation with possible impingement on right L2 nerve root. Small central disc herniation and mild broad-based right lateral disc herniation at L3-4.Multilevel neural foraminal stenosis. He worked with PT. PT recommends outpatient PT. He was started on prednisone, soma and morphine initially as well as toradol. He was able to tolerate his pain and ambulate using a walker with oral pain medication. He is discharged home today with a prednisone taper, scheduled Ibuprofen, scheduled soma and PRN oxycodone. He has ongoing pain in his lower back, right > left with radiation down to his right buttock and down around the right thigh to his knee with decreased sensation. He has had no loss of bowel or bladder or saddle anesthesia. Also, Mr. Collins was noted to have low oxygen saturation while asleep at night. He would benefit from a sleep study for evaluation for sleep apnea. He is agreeable to having this done after he is through this acute back problem. He is scheduled for outpatient PT at [facility] on 03/18/19. He will follow up with his PCP as scheduled. He will remain out of work until he is cleared. 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 Home Meds and New Rx's Prescriptions: New pantoprazole 40 mg Tablet,Delayed Release (Dr/Ec) 40 mg PO DAILY@0730 Qty: 30 RF: 0 lidocaine [Lidoderm] 5 % Adhesive Patch,Medicated 1 patch topical Q24H Qty: 10 RF: 0 oxycodone 5 mg Tablet 5 - 10 mg PO Q4H PRN PRNQty: 20 RF: 0 ibuprofen 800 mg tablet 800 mg PO Q8H Qty: 30 RF: 0 prednisone 10 mg tablet 10 mg PO DAILY Qty: 30 RF: 0 carisoprodol [Soma] 350 mg tablet 350 mg PO QID Qty: 20 RF: 0 acetaminophen 500 mg tablet 1,000 mg PO Q6H PRN PRN (Reason: pain) Qty: 30 RF: 0 Continued docusate sodium [Colace] 100 mg capsule 100 mg PO DAILY RF: 0 lisinopril 40 mg Tablet 40 mg PO DAILY RF: 0 amlodipine 5 mg Tablet 5 mg PO DAILY RF: 0 Changed gabapentin 300 mg capsule 300 mg PO TID Qty: 90 RF: 0 Discharge Instructions Instructions: Lumbar Disc Herniation (DC), Acute Low Back Pain (DC) Additional Instructions: Take prednisone as follows: take 5 tablets in the morning x2 days, then decrease to 4 tabs daily x2 days, then 3 tabs daily x2 days, then 2 tablets x2 days then 1 tablet x2 days then stop. Take pantoprazole to protect your stomach (both prednisone and ibuprofen can cause stomach problems). Take ibuprofen scheduled every eight hours for now, then decrease to every 8 hours as needed as your pain improves. Take Soma (muscle relaxor) scheduled for now, then decrease to 4 times per day as needed as your pain improves. Take acetaminophen as needed for pain (you may take it scheduled for now if it helps your pain, then decrease to every 6 hours as needed) Do not take more than 4000 mg of acetaminophen in 24 hours. Take oxycodone, 1-2 tablets every 4 hours as needed for pain. You have an appointment with PT on 03/18/19. Use walker as recommended by PT. You have a PCP follow up 03/19/19. Do not return to work until cleared by your PCP. No driving until cleared by PCP. No driving while taking narcotic pain medication. You will need a sleep study once you get through this acute problem. Stand Alone Forms: Nursing Discharge Form Referrals: Sajan Barker [Primary Care Provider] - 03/19/19 9:15 am Activity:: Activity as Tolerated Equipment/Supplies:: No Equipment Needed Diet:: As Tolerated Discharge Orders Discharge Orders: Discharge Order (Routine); Ordered 03/16/19 Ordered By: Geovanna Busby DS: Summary Status at Discharge Functional status at discharge: uses cane/walker Overall status at discharge: patient is not back to baseline Mental Status: mental status grossly normal Speech and Movement: speech and movement normal (speech normal, decreased movement due to back pain) Mood: congruent mood Affect: normal affect Exam Narrative Exam Narrative: General: middle aged, overweight man, laying in bed, appears uncomfortable. HEENT: normocephalic, atraumatic, pupils equal and round, EOMI, mucous membranes moist. Neck: supple, no JVD. Cardiovascular: heart has regular rate and rhythm, no murmur appreciated. Respiratory: respirations even and unlabored, lung sounds clear bilaterally on anterior and lateral exam. GI: +bowel sounds throughout, abdomen soft, nontender on palpation. Extremities: Low back pain on palpation of lumbar spine and paraspinal muscles bilaterally, right > left. Decreased sensation to right anterior thigh. Equal range of motion to all 4 extremities. Pedal pulses palpable bilaterally, no calf swelling or tenderness. Psych Mental Status: mental status grossly normal Speech and Movement: speech and movement normal (speech normal, decreased movement due to back pain) Mood: congruent mood Affect: normal affect DS: Data Vitals/I&O Vitals and I&O: Vital Signs Temperature 36.3 C L 03/16/19 08:49 Temperature Source Tympanic 03/16/19 08:49 Pulse 95 H 03/16/19 08:49 Pulse Rhythm Regular 03/16/19 10:25 Respiratory Rate 18 03/16/19 09:48 Respiratory Effort Non-Labored 03/16/19 10:25 Respiratory Depth Normal 03/16/19 10:25 Respiratory Pattern Normal 03/16/19 10:25 Blood Pressure 164/97 H 03/16/19 08:49 Blood Pressure Position Sitting 03/13/19 11:48 Pulse Oximetry 92 L 03/16/19 08:49 Oxygen Delivery Method Room Air 03/16/19 08:49 Oxygen Flow Rate 0 03/16/19 08:49 Fraction of Inspired Oxygen (FIO2) 55 03/15/19 01:06 Pain Level 5 03/16/19 11:21 Comment 03/15/19 07:40 Intake & Output 03/15/19 03/16/19 03/16/19 23:59 11:59 23:59 Intake Total 240 / 840 Balance 240 / 840 Intake: IV Oral 240 / 840 Other: Urine Appearance Clear Clear Comment Pt voiding ad santiago Voiding Methods Toilet Data Completed and Pending Completed studies during hospitalization [Text1]: 03/13/19: EXAM: CT LUMBAR SPINE WO CLINICAL HISTORY: lower back pain, r/o acute process. TECHNIQUE: CT examination of the lumbar spine was performed utilizing multi slice acquisition and multiplanar reconstruction. COMPARISON: XR CHEST 2V PA LATERAL from 11/27/2018 FINDINGS: Note is made of non-obstructing left nephrolithiasis. No bony abnormality is seen in the lumbar region. The contours of the intervertebral discs are poorly seen and I would have a low level of confidence regarding the diagnosis of disc herniation in this patient, also it would be impossible to exclude a significant disc herniation. There is a question of abnormal appearance of the disc contour at L5-S1, L4-5, L3-4 and L2-3. If clinically appropriate, additional evaluation with MRI would be recommended. IMPRESSION: Additional evaluation with MRI recommended. The lumbar CT findings are severely limited due to the patient's size. 03/14/19: EXAM: XR CHEST 2V PA LATERAL INDICATION: fever of unknown origin. COMPARISON: XR CHEST 2V PA LATERAL from 11/27/2018 TECHNIQUE: 2D digital imaging was performed. FINDINGS: The heart is not enlarged. The lungs are clear. No pleural effusion seen. Mediastinal contours are unremarkable. IMPRESSION: No evidence of acute process. 03/15/19: EXAM: MR LUMBAR SPINE WO CLINICAL HISTORY: back pain, fever, thigh radiation. TECHNIQUE: Multiplanar multisequence MRI was performed. COMPARISON: No exams were available for comparison FINDINGS: MR examination of the lumbosacral spine was performed according to the usual protocol. No significant bony signal abnormality seen. The conus medullaris appears intact. There are mild hypertrophic degenerative changes of the facet joints particularly at L4-5 and L5-S1. No significant findings at L1-2. At L2-3 there is a right lateral disc herniation with possible impingement on the right L2 nerve root At L3-4 there is moderate disc bulge with a small central disc herniation and mild broad-based right lateral disc herniation. There is probable bilateral neural foraminal stenosis. At L4-5 there is a disc bulge and probable mild bilateral neural foraminal stenosis. No focal disc herniation. At L5-S1 there is moderate disc bulge, no disc herniation or neural foraminal stenosis. IMPRESSION: Right-sided lateral L2-3 disc herniation with possible impingement on right L2 nerve root. Small central disc herniation and mild broad-based right lateral disc herniation at L3-4. Multilevel neural foraminal stenosis, please see above discussion for findings at individual levels. Labs on day of discharge: Labs from last 24 hours 03/16/19 03/16/19 06:30 06:30 WBC 12.75 H RBC 5.32 Hgb 15.0 Hct 45.6 MCV 85.7 MCH 28.2 MCHC 32.9 RDW 14.7 H Plt Count 275 MPV 10.0 Sodium 141 Potassium 3.6 Chloride 105 Carbon Dioxide 31.0 Anion Gap 5.0 BUN 24 H Creatinine 0.72 Estimated GFR/1.73 m2 >= 60.00 Glucose 97 Calcium 8.4 L Preliminary micro results at discharge 03/14/19 16:35 Blood Culture - Preliminary Blood NO GROWTH 24 HOURS 03/14/19 16:10 Blood Culture - Preliminary Blood NO GROWTH 24 HOURS [facility] Medical History Diverticulitis of large intestine with perforation and abscess without bleeding (Resolved) HTN (hypertension) (Chronic) Vertigo (Acute) Surgical History History of colonoscopy (Chronic) 01/29/19 No significant past surgical history (Acute) Family History Brother Heart disease Social History Smoking/Tobacco Use Status: Never Alcohol Intake: current Alcohol Intake frequency: holidays/special occasions only Drug use: Rarely Substance use type: marijuana Details: 1 joint per day Do you feel safe at home: Yes Do you feel safe in your relationship?: Yes 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
--- NOTE | 2019-03-16 12:18 | PT.INTREAT ---
Date of service: 03/16/19 Time of Service: 12:18 PT Notes Inpatient Physical Therapy Treatment Note [facility] Date: 03/16/19 PRECAUTIONS: LBP, Log Rolling SUBJECTIVE: Kojo reports that he has been feeling better today and that he has been up multiple times today to walk to and from the bathroom and around his room. He and his report that they will be buying a recliner today for the patient for when he returns to home. OBJECTIVE: PAIN: Patient c/o LBP and tingling pain in his R LE. BED MOBILITY/TRANSFERS Rolling L/R: Log roll with cueing Supine-sit: S Sit-supine: S Sit-stand: I Stand-sit: I GAIT Assistive Device: FWW Weight bearing: Full Assist: I Distance: 60' Deviation: Use of arms for decompression MANUAL THERAPY With patient in side-lying, perform STM to right lumbar paraspinals, followed by TPR techniques and DTM through piriformis and glutes. ASSESSMENT: Patient tolerated session with complaints of increased R LE pain with transfers and gait training. Patient demonstrates improvement with logroll technique. PLAN: As per primary PT TREATMENT CODE/TIME: 40 minutes; [id number], [id number] x2
[2019-03-16 14:06] VITALS: RESP 18
--- NOTE | 2019-03-16 16:07 | PDOC.CMDIS ---
- If Service Date Differs Date of service: 03/16/19 Time of Service: 16:08 LACE Index Scoring Tool - Questions: Length of Stay (in days): 4 - 6 Acuity (Admit via E.D.?): Yes E.D. Visits: 2 - Answers: Total Score: 9 Risk of Readmission: Low Risk Care Management Discharge Reason for Hospitalization: radiculitis Discharge Plan: Kojo will return home with no additional services. He will have an outpatient PT follow up on 03/18/19 at 1:45pm. He will also follow up with his PCP, as recommended. He will be driven by his , Clementina via private vehicle. Patient/Family Education Needs: Review discharge instructions regarding medication and activity levels, discussion of self care needs including Ask Me Three Services Needed at Discharge: Physical Therapy
--- NOTE | 2019-03-17 11:06 | PT.INDS ---
Date of service: 03/17/19 Time of Service: 11:06 PT Notes Inpatient Physical Therapy Discharge Summary Dates: 03/17/2019 Dates of Service: 03/14/2019 through 03/16/2019 This is a clinical summary of care provided on the duration of dates listed above. No charge was made in the completion of this documentation. Referring Doctor: Maxim Sarmiento MD PT Orders: PT CONSULT: Eval and treat Precautions: Standard. Fall. Patient Profile/Admitting Diagnosis: Patient awoke on 03/13/2019 with severe right-sided low back pain and right lower extremity referral. He has diagnostically confirmed right L2/L3 HNP. PMHX: Medical History Diverticulitis of large intestine with perforation and abscess without bleeding (Acute) HTN (hypertension) (Chronic) Vertigo (Acute) Surgical History History of colonoscopy (Chronic) 01/29/19 No significant past surgical history (Acute) Social History/Home Situation: Lives in a private home, with his . 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 He has a full flight of stairs, spiral style, to get to the second floor bedroom. Current Functional Limitations: He is requiring walker for ambulation for pain management, requires close supervision for all transfers and functional mobility. He has severe pain with movement transfers ambulation, and he has poor tolerance to any functional task due to his pain level. Equipment Owned/DME: None Subjective: NT Objective: General Observation:NT Mental Status: NT Pain: NT ROM: (carried from initial eval measurement) Right Upper Extremity: Grossly WNL Left Upper Extremity: Grossly WNL Right Lower Extremity: Right hip flexion limited to 100 degrees, IR to 20 degrees, ER to 20 degrees, due to provocation of right low back and right knee radiculopathy. Right knee and ankle WNL. Left Lower Extremity: WNL Strength: (carried from initial eval measurement) Right Upper Extremity: Grossly WNL Left Upper Extremity: Grossly WNL Right Lower Extremity: Right dorsiflexion/plantarflexion is 5/5 but induces right low back pain due to resistance, hamstring and quad is at least 4/5 limited by pain, hip flexion is at least 3/5 unable to provide resistance due to pain level, unable to assess activation of hip extension abduction due to pain level, but he is able to perform isometric contractions of said structures. Left Lower Extremity: Grossly WNL Sensation: Intact to light touch and pressure throughout the right lower extremity Bed Mobility/Transfers: Supervision with bed mobility, supervision with sit to stand and vice versa at walker for pain management, ambulates 40 feet with walker to decompress low back for pain management. Gait: I with 60 feet with FWW. Balance: Static Sitting: Good Dynamic Sitting: Good Static Standing: Good Dynamic Standing: Good Assessment: Patient is a 53 year old male referred to physical therapy services with the diagnosis of L2/L3 HNP and right lower extremity radiculopathy. Patient presents with clinical signs and symptoms consistent with referred diagnosis, as demonstrated by the following impairment level findings: Right lower extremity radiculopathy, within the L2/L3 distribution. Limited lumbar range of motion, soft tissue dysfunction to the lumbosacral region, and limited right hip mobility secondary to pain, and movement dysfunction. Impairments continue to contribute to the following functional limitations: Pain and difficulty with bed mobility, transfers and ambulation, requiring minimal assistance due to discomfort. He requires walker to allow for lumbar decompression, and pain management with functional movements. Patient requires skilled PT intervention for pain management, and functional mobility improvements so he is able to safely discharge home. Goals: Goals X1 week 1. Supine-Sit independent NOT MET 2. Sit-Supine independent NOT MET 3. Sit-Stand independent at walker MET 4. Stand-Sit independent at walker MET 5. Bed-Chair independent at walker NOT MET 6. Chair-Bed independent walker NOT MET 7. Gait independent with walker x40 feet MET 8. Stairs full flight, with rail, step to pattern NOT MET 9. Independent with home exercise program NOT MET 10. Balance good NOT MET DISCHARGE RECOMMENDATIONS: Home with , outpatient physical therapy referral TREATMENT CODE/TIME: NC. Thank you very much for this referral. Yennifer Salas PT, DPT, CLT [facility]
== END 2019-03-16 14:57 | disposition home or self-care (01) | DRG 552 ==
LOC: ER 19:23 → MS 19:45
PROVIDERS: Nurse Practitioner; Nurse Practitioner Acute Care; Admitting Provider General Practice; Emergency Provider Physician Assistant; PCP Specialist/Technologist Athletic Trainer; Visit Provider Internal Medicine
DX: M51.16 Intervertebral disc disorders with radiculopathy, lumbar region (principal); M54.5 Low back pain; X50.1XXA Overexertion from prolonged static or awkward postures, initial encounter; Y99.0 Civilian activity done for income or pay; R50.9 Fever, unspecified; G47.34 Idiopathic sleep related nonobstructive alveolar hypoventilation; I10 Essential (primary) hypertension; Z29.9 Encounter for prophylactic measures, unspecified; G25.81 Restless legs syndrome
CPT/HCPCS: 36410; 36415; 80048; 80053; 85027; 87040; 96374; 96375; 96376; 97140; 97162; 97530; 99222; 99226; 99232; 99239; 99285; J1650; 71046; 72131; 72148; 81003; 81015; 85025; 87086; 99218; 99284; G0378; J0780; J1885; J3010; J3490; J7512

== ENCOUNTER 2019-05-14 13:37 | Outpatient (REF) | payer OTHER, SELFPAY ==
[2019-05-14 18:39] LABS: HCT 44.4 % (40.0-50.0); HGB 14.9 g/dL (13.5-17.5); Mean Corp. HGB Concentration 33.6 g/dL (32.0-36.0); Mean Corpuscular Volume 83.5 fL (80-95); Platelet Count 313 x1000/uL (130-400); RBC 5.32 m/cumm (4.50-6.00); RBC Distribution Width 14.1 % (11.8-14.1)
[2019-05-14 18:42] LABS: BUN 15 mg/dL (7-18); CREATININE 0.67 mg/dL (0.70-1.30); Calcium 9.2 mg/dL (8.5-10.1); Chloride 99 mmol/L (98-107); Glucose 95 mg/dL (74-106); Potassium 3.6 mmol/L (3.5-5.1); Sodium 135 mmol/L (136-145)
== END 2019-05-14 13:57 ==
LOC: NCHCN 13:37
PROVIDERS: PCP Specialist/Technologist Athletic Trainer; Visit Provider Specialist/Technologist Athletic Trainer
DX: Z01.818 Encounter for other preprocedural examination (principal)
CPT/HCPCS: 80048; 85027

== ENCOUNTER 2019-11-15 08:49 | Outpatient (REF) | payer MEDICAID, SELFPAY ==
[2019-11-15 20:30] LABS: Hemoglobin A1C 7.4 % (3.8-5.6)
[2019-11-15 20:56] LABS: ALT 105 U/L (16-63); AST 72 U/L (15-37); Albumin 3.8 g/dL (3.4-5.0); Alkaline Phosphatase 61 U/L (46-116); Bilirubin, Total 0.5 mg/dL (0.2-1.0); Calculated LDL 156 mg/dL (<100); Cholesterol 224 mg/dL (<200); HDL Cholesterol 37 mg/dL (40-60); Total Protein 7.5 g/dL (6.4-8.2); Triglyceride 155 mg/dL (<150)
[2019-11-15 21:10] LABS: Bilirubin, Direct 0.14 mg/dL (0.00-0.20)
== END 2019-11-15 09:09 ==
LOC: NCHCN 08:49
PROVIDERS: PCP Specialist/Technologist Athletic Trainer; Visit Provider Nurse Practitioner Family
DX: I10 Essential (primary) hypertension (principal); R74.8 Abnormal levels of other serum enzymes; Z68.42 Body mass index [BMI] 45.0-49.9, adult
CPT/HCPCS: 80061; 80076; 83036

== ENCOUNTER 2019-12-02 11:42 | Outpatient (REF) | payer MEDICAID, SELFPAY ==
[2019-12-02 19:17] LABS: ALT 119 U/L (16-63); AST 87 U/L (15-37); Creatine Kinase 89 U/L (39-308)
== END 2019-12-02 12:02 ==
LOC: NCHCN 11:42
PROVIDERS: PCP Specialist/Technologist Athletic Trainer; Visit Provider Nurse Practitioner Family
DX: I10 Essential (primary) hypertension (principal); R74.8 Abnormal levels of other serum enzymes
CPT/HCPCS: 82550; 84450; 84460

== ENCOUNTER 2020-01-03 00:46 | Outpatient (CLI) | payer MEDICAID, SELFPAY ==
--- NOTE | 2020-01-03 | DI.US_ITS ---
EXAM: US ABDOMEN CLINICAL HISTORY: ELEVATED LIVER ENZYMES, EVALUATE FOR NAFLD,R74.8 TECHNIQUE: Ultrasound performed using standard protocol. COMPARISON: CT CT CHEST PE ABD PELVIS W from 11/27/2018 FINDINGS: The liver is marked of mildly increased echogenicity, there is left hepatic lobe cyst measuring about 14 millimeters in greatest diameter. There is no cholelithiasis or gallbladder wall thickening. No biliary dilatation. Pancreas is unremarkable as visualized. Spleen is unremarkable in appearance. The kidneys contain small simple cysts bilaterally, there is a 5 millimeter shadowing echogenic focus of the left kidney which appears to correspond with previously noted left renal calcification seen o n CT of October 2018. No evidence of hydronephrosis on either side. Abdominal aorta and IVC are of normal diameter. IMPRESSION: No evidence of acute intra-abdominal process. Nonobstructing left renal calculus DATA REPOSITORY:
== END 2020-01-03 01:06 ==
PROVIDERS: PCP Specialist/Technologist Athletic Trainer; Visit Provider Nurse Practitioner Family
DX: R74.8 Abnormal levels of other serum enzymes (principal); K76.89 Other specified diseases of liver; N20.0 Calculus of kidney
CPT/HCPCS: 76700

== ENCOUNTER 2020-01-27 12:28 | Outpatient (REF) | payer MEDICAID, SELFPAY ==
[2020-01-27 19:33] LABS: Abs Immature Grans 0.03 10^3/uL (0.0-0.06); Absolute Basophil Count 0.09 10^3/uL (0.0-0.2); Absolute Eosinophil Count 0.29 10^3/uL (0.0-0.7); Absolute Lymphocyte Count 2.41 10^3/uL (1.2-3.4); Absolute Monocyte Count 1.04 10^3/uL (0.1-0.8); Absolute Neutrophil Count 6.69 10^3/uL (1.2-6.7); Basophils % 0.9; Eosinophils % 2.7; HCT 44.6 % (40.0-50.0); Immature Grans % 0.3; Lymphocytes % 22.8; MCH 27.7 pg (27.0-33.0); MCHC 33.6 % (32.0-36.0); MCV 82.3 fL (80-95); MPV 10.5 fL (8.0-11.0); Monocytes % 9.9; Neutrophils % 63.4; Nucleated RBC 0 %; Platelet Count 272 10^3/uL (130-400); RBC 5.42 10^6/uL (4.36-5.78); RDW 14.4 % (11.8-14.1); RDW-SD 43.1 fL; WBC 10.55 10^3/uL (4.4-10.8)
[2020-01-27 19:59] LABS: TSH 0.89 uIU/mL (0.36-3.74)
[2020-01-27 20:06] LABS: Vitamin D 25 Total 34.2 ng/ml (30-100)
== END 2020-01-27 12:48 ==
LOC: NCHCN 12:28
PROVIDERS: PCP Specialist/Technologist Athletic Trainer; Visit Provider Nurse Practitioner Family
DX: R53.83 Other fatigue (principal)
CPT/HCPCS: 82306; 84443; 85025

== ENCOUNTER 2020-07-03 15:34 | Outpatient (REF) | payer MEDICAID, SELFPAY ==
[2020-07-03 15:46] LABS: Hemoglobin A1C 6.5 % (<5.7)
[2020-07-03 15:53] LABS: ALT 55 U/L (16-63); AST 31 U/L (15-37); Albumin 3.8 g/dL (3.4-5.0); Alkaline Phosphatase 61 U/L (46-116); Anion Gap 8.1 mmol/L (3-11); BUN 10 mg/dL (7-18); Bilirubin, Total 0.4 mg/dL (0.2-1.0); CO2 29.9 mmol/L (21.0-32.0); Calcium 8.9 mg/dL (8.5-10.1); Calculated LDL 136 mg/dL (<100); Chloride 100 mmol/L (98-107); Cholesterol 202 mg/dL (<200); Glucose 117 mg/dL (74-106); HDL Cholesterol 36 mg/dL (40-60); Potassium 3.7 mmol/L (3.5-5.1); Sodium 138 mmol/L (136-145); Triglyceride 154 mg/dL (<150)
[2020-07-03 16:10] LABS: CREATININE 0.7 mg/dL (0.70-1.30); Total Protein 8.2 g/dL (6.4-8.2)
== END 2020-07-03 15:54 ==
LOC: NCHCN 15:34
PROVIDERS: PCP Specialist/Technologist Athletic Trainer; Visit Provider Nurse Practitioner Family
DX: E11.9 Type 2 diabetes mellitus without complications (principal); E78.5 Hyperlipidemia, unspecified; I10 Essential (primary) hypertension
CPT/HCPCS: 80053; 80061; 83036

== ENCOUNTER 2020-12-08 09:39 | Outpatient (REF) | payer MEDICAID, SELFPAY ==
[2020-12-08 20:20] LABS: Hemoglobin A1C 6.9 % (<5.7)
[2020-12-08 20:32] LABS: Calculated LDL 79 mg/dL (<100); Cholesterol 143 mg/dL (<200); HDL Cholesterol 42 mg/dL (40-60); Triglyceride 111 mg/dL (<150)
== END 2020-12-08 09:40 | disposition home or self-care (01) ==
LOC: NCHCN 09:39
PROVIDERS: PCP Specialist/Technologist Athletic Trainer; Visit Provider Nurse Practitioner Family
DX: M54.5 Low back pain (principal); E11.9 Type 2 diabetes mellitus without complications; E78.5 Hyperlipidemia, unspecified
CPT/HCPCS: 80061; 83036

== ENCOUNTER 2021-03-22 00:25 | Emergency (ER) | payer MEDICAID, SELFPAY ==
[2021-03-22] VITALS (21 sets, daily range): BP systolic 141–181; BP diastolic 87–112; PULSE 79–110; RESP 13–22; TEMP 35.9–36.8; O2SAT 84–98
--- NOTE | 2021-03-22 00:28 | ED.GENADUL_ITS ---
Discharge Plan Disposition Patient Disposition: HOME Condition: Good Discharge Details Clinical Impression: Left ureteral stone, Hypokalemia Primary Care Provider: Sajan Barker ED Provider: Maynor Hancock Hardin Meds and New Rx's Prescriptions: New tamsulosin 0.4 mg capsule 0.4 mg PO QHS Qty: 14 RF: 0 Continued gabapentin 300 mg capsule 300 mg PO HS PRNRF: 0 chlorthalidone 50 mg tablet 50 mg PO DAILY RF: 0 tramadol 50 mg tablet 50 mg PO Q8H PRNRF: 0 amlodipine 10 mg tablet 10 mg PO DAILY RF: 0 lisinopril 40 mg tablet 40 mg PO DAILY RF: 0 rosuvastatin 20 mg tablet 20 mg PO DAILY RF: 0 ibuprofen 800 mg tablet 800 mg PO Q8H PRNRF: 0 Discharge Instructions Instructions: Renal Colic (ED), Hypokalemia (ED) Additional Instructions: You have a 5 mm kidney stone in the left ureter which hopefully will pass on its own. Take the tamsulosin to try to help with passage of stone. Alternate acetaminophen with ibuprofen for pain but feel free to use your tramadol for worsening pain. Call urology clinic to arrange for follow-up in case the stone does not pass. Return to ED for fever, uncontrolled pain, persistent vomiting, other concerns. Referrals: Shakeel Peguero MD [ [facility] STAFF PHYSICIAN] - Medical Decision Making Patient most likely has recurrent diverticulitis. He is tender to palpation. Hypertensive and tachycardic likely related to his pain. IV established and fluids started. Ketorolac and ondansetron given. Laboratory studies with CT scan of the abdomen/pelvis ordered. Laboratory studies significant for low potassium of 2.7. Patient is on hydrochlorothiazide. 20 mEq of potassium ordered IV. Pain not controlled with ketorolac so 4 mg of morphine given. Patient much better after this. CT scan shows no diverticulitis. He does have a distal left ureteral stone causing mild to moderate hydroureter and hydronephrosis. Patient does have history of kidney stones. Patient is feeling much better. Stone is 4 x 6 mm so we will start him on tamsulosin. He is encouraged to use acetaminophen and ibuprofen for pain but has tramadol at home if needed for worsening pain. I will refer him to neurology given the size of stone and hydronephrosis. Return to ED for fever, uncontrolled pain, persistent vomiting. HPI General Mode of arrival: ambulatory . Date/Time Provider Initiated Documentation: 03/22/21 00:25 . Limitations to Documentation: no limitations . Information obtained by: patient and RN notes reviewed . HPI Narrative: Patient presents to ED with left lower quadrant abdominal pain. Patient reports being fine yesterday. This morning had a little bit of discomfort. Throughout the day a little bit worse. This evening after dinner severe pain in the left lower quadrant. There is no radiation of the pain into his back, groin, testicle. He has no urinary symptoms. He has no fever. One episode of vomiting here. No diarrhea. Previous diverticulitis which responded to antibiotics. Pain he is having now reminds him of that previous pain. Denies any chest pain, cough, shortness of breath. Related Data Home Medications Medication Instructions Recorded Confirmed gabapentin 300 mg PO HS PRN 04/21/19 03/22/21 amlodipine 10 mg PO DAILY 03/22/21 03/22/21 chlorthalidone 50 mg PO DAILY 03/22/21 03/22/21 ibuprofen 800 mg PO Q8H PRN 03/22/21 03/22/21 lisinopril 40 mg PO DAILY 03/22/21 03/22/21 rosuvastatin 20 mg PO DAILY 03/22/21 03/22/21 tamsulosin 0.4 mg PO QHS #14 cap 03/22/21 tramadol 50 mg PO Q8H PRN 03/22/21 03/22/21 Previous Rx's Medication Instructions Recorded tamsulosin 0.4 mg PO QHS #14 cap 03/22/21 Allergies Allergy/AdvReac Type Severity Reaction Status Date / Time No Known Allergies Allergy Verified 03/22/21 00:38 General RICHARD: 4 Review of Systems Narrative: As documented in HPI otherwise negative as below. Const: no fever, chills, weakness Resp: no cough, SOB, pleuritic pain CV: no CP, diaphoresis, edema, syncope GI: no diarrhea Neuro: no headache, numbness, focal weakness, confusion PFSH Medical History Diverticulitis of large intestine with perforation and abscess without bleeding Elevated liver enzymes HTN (hypertension) RLS (restless legs syndrome) Tinnitus, bilateral Vertigo Surgical History History of colonoscopy 01/29/19 Previous back surgery Family History Brother Heart disease Social History Smoking/Tobacco Use Status: Never Smoking risk assessment performed?: Yes Alcohol Intake: current Alcohol Intake frequency: holidays/special occasions only Drug use: Rarely Substance use type: marijuana Details: 1 joint per day Do you feel safe at home: Yes Do you feel safe in your relationship?: Yes 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 HEENT: NC/AT. Normal facial exam. Eyes: Normal conjunctiva and sclera. Neck: Supple. Trachea midline. Lungs: Normal respiratory effort. Lungs are clear. Cor: RRR without murmur/gallop. Good radial pulses. GI: Soft. ND. Tender in LLQ with voluntary guarding, no rebound. Neuro: A+O x 3. Normal speech, mentation, gait. Cranial nerves II - XII grossly intact. No gross motor or sensory deficit. Ext: No C/C/E. Skin: Warm and dry without rash.
--- NOTE | 2021-03-22 00:45 | DI.CT_ITS ---
Exam(s) CT ABDOMEN PELVIS W EXAM: CT ABDOMEN PELVIS W CLINICAL HISTORY: LLQ pain/tenderness. TECHNIQUE: Imaging Protocol: Axial computed tomography images with coronal and sagittal reformatted images were created and reviewed CONTRAST MATERIAL: Intravenous: Omnipaque 100cc Oral: None COMPARISON: CT CT CHEST PE ABD PELVIS W from 11/27/2018 FINDINGS: VISUALIZED LUNG BASES: No nodules nor pleural effusions evident. ABDOMEN: There is no ascites. LIVER: There are no focal hepatic lesions evident . GALLBLADDER/BILIARY: No obvious gallbladder pathology. CBD is not dilated. PANCREAS: No evidence of pancreatic mass nor dilatation of the pancreatic duct. SPLEEN: Spleen is not enlarged. No obvious intrasplenic lesions. Splenic and portal veins are paten t. ADRENALS: There are no significant adrenal masses. KIDNEYS:There are 2 small cortical cyst in the right kidney noted. Larger of these measures 1.5 by 1 .2 cm, unchanged. In the opposite-left kidney there is a midpole level 5 millimeter calculus. There is also an element of hydronephrosis and hydroureter. There is an obstructing 6-7 millimeter calcul us in the pelvis which is at the level where the ureter crosses iliac artery. The ipsilateral ureter below this level is not dilated. There are no calculi in the nondistended urinary bladder. No elisha d renal masses. ABDOMINAL AORTA: Abdominal aorta is not enlarged. LYMPH NODES:There is no retroperitoneal nor paraaortic adenopathy. ABDOMINAL WALL: No evidence of significant anterior abdominal wall nor inguinal hernia. GI: The previously present severe sigmoid diverticulitis evident on the CT scan of October 2018 has reso lved. There is sigmoid diverticuli but no evidence of acute diverticulitis at present time. PELVIS: GI: No evidence of appendicitis.No evidence of sigmoid diverticulitis. LYMPH NODES: There is no intrapelvic nor inguinal adenopathy. REPRODUCTIVE: Prostate size upper normal. Seminal vesicles unremarkable URINARY BLADDER: No calculi nor obvious masses evident OSSEOUS: No significant osseous lesions. IMPRESSION: 1. Main acute finding on today's study is an obstructing 6-7 millimeter calculus in the left pelvic u reter at the level of the crossing of the iliac vessels. The left collecting system is dilated above this level. There is an additional 3 millimeter calculus in the midpole left kidney and another sim ilar size calculus in lower pole. No calculi in the opposite-right kidney and no obstruction on the right side. Small cortical benign cysts are noted right kidney. No solid renal masses. 2. Resolved diverticulitis of the sigmoid (11/27/2018). No evidence of acute appendicitis RADIATION DOSE DELIVERED: 1,583.7mGy.cm Total DLP DATA REPOSITORY: All CT scans at this facility are submitted to the National Radiology Data Registry (NRDR) Dose Index Registry (DIR) with the [employer] [place] [employer] (ACR). RADIATION OPTIMIZATION: All CT scans at this facility use at least one of these dose optimization te chniques: automated exposure control; mA and/or kV adjustment per patient size (includes targeted exa ms where dose is matched to clinical indication); or iterative reconstruction.
[2021-03-22] MEDS: Normal Saline 1,000 ML 1000 ML IV (00:58)
[2021-03-22] MEDS: Ondansetron 4 MG/2 ML VIAL IVP (00:59)
[2021-03-22] MEDS: Ketorolac 15 MG/ML VIAL IVP (01:01)
[2021-03-22 01:08] LABS: Abs Immature Grans 0.08 10^3/uL (0.0-0.06); Absolute Basophil Count 0.06 10^3/uL (0.0-0.2); Absolute Eosinophil Count 0.38 10^3/uL (0.0-0.7); Absolute Lymphocyte Count 3.83 10^3/uL (1.2-3.4); Absolute Monocyte Count 1.23 10^3/uL (0.1-0.8); Basophils % 0.5; HCT 46.3 % (40.0-50.0); HGB 15.4 g/dL (13.5-17.5); Immature Grans % 0.6; Lymphocytes % 30.2; MCH 27.5 pg (27.0-33.0); MCHC 33.3 % (32.0-36.0); MCV 82.7 fL (80-95); MPV 10.1 fL (8.0-11.0); Monocytes % 9.7; Nucleated RBC 0 %; Platelet Count 289 10^3/uL (130-400); RDW 13.6 % (11.8-14.1); RDW-SD 40.5 fL; WBC 12.68 10^3/uL (4.4-10.8)
[2021-03-22 01:21] LABS: ALT 33 U/L (16-63); AST 18 U/L (15-37); Albumin 3.7 g/dL (3.4-5.0); Alkaline Phosphatase 59 U/L (46-116); Anion Gap 9.3 mmol/L (3-11); BUN 9 mg/dL (7-18); Bilirubin, Total 0.5 mg/dL (0.2-1.0); CO2 32.7 mmol/L (21.0-32.0); CREATININE 0.8 mg/dL (0.70-1.30); Calcium 8.9 mg/dL (8.5-10.1); Chloride 99 mmol/L (98-107); Glucose 153 mg/dL (74-106); Lipase 55 U/L (73-393); Sodium 141 mmol/L (136-145)
[2021-03-22 01:24] LABS: Potassium 2.7 mmol/L (3.5-5.1)
[2021-03-22] MEDS: Omnipaque 350 MG/ML 100 ML BTL IJ (01:30)
[2021-03-22] MEDS: Normal Saline - Diluent 50 ML VIAL IV (01:31)
[2021-03-22] MEDS: POTASSIUM CHLORIDE 10 MEQ/100 ML BAG 100 MEQ IVPB ×2 (01:40→02:48)
--- NOTE | 2021-03-22 02:31 | DI.VRAD_ITS ---
PROCEDURE INFORMATION: Exam: CT Abdomen And Pelvis With Contrast Exam date and time: 03/22/2021 12:52 AM Age: 55 years old Clinical indication: Other: Llq pain/tenderness TECHNIQUE: Imaging protocol: Computed tomography of the abdomen and pelvis with contrast. COMPARISON: CT CHEST PE ABD PELVIS W 11/27/2018 3:34 PM FINDINGS: Liver: Hepatomegaly and diffuse fatty infiltration. Simple cyst in the left lobe. Gallbladder and bile ducts: Normal. No calcified stones. No ductal dilation. Pancreas: Normal. No ductal dilation. Spleen: Normal. No splenomegaly. Adrenal glands: Normal. No mass. Kidneys and ureters: Distal left ureteral calculus axial image 74 measuring 4 x 3 mm with mild to moderate left hydroureteronephrosis. Left renal calculus in the upper pole measuring 6x4 mm sagittal image 77. Renal cysts noted bilaterally . Stomach and bowel: Mild colonic diverticulosis. No obstruction. No mucosal thickening. Appendix: No evidence of appendicitis. Intraperitoneal space: Unremarkable. No free air. No significant fluid collection. Vasculature: Unremarkable. No abdominal aortic aneurysm. Lymph nodes: Unremarkable. No enlarged lymph nodes. Urinary bladder: Unremarkable as visualized. Reproductive: Unremarkable as visualized. Bones/joints: Unremarkable. No acute fracture. Soft tissues: Unremarkable. IMPRESSION: [id number] left obstructive uropathy secondary to a distal left ureteral calculus measuring approximately 6 x 4 mm sagittal image 77 Additional left renal calculus in the upper pole measuring 4 mm Nonurgent findings as noted Dictated and Authenticated by: Ronald Mcqueen MD. Ordering:NYA Mcguire MD
[2021-03-22 03:02] LABS: Bilirubin Negative (Negative); Blood Large (Negative); Clarity Cloudy (Clear); Glucose Negative (Negative); Ketones Negative (Negative); Leukocyte Esterase Negative (Negative); Nitrite Negative (Negative); Specific Gravity 1.025 (1.005-1.025); Urobilinogen 0.2 EU/dL (Up TO 0.2)
[2021-03-22 03:12] LABS: RBC >50 HPF (0-2)
[2021-03-22 03:13] LABS: C & S Indicated? Yes
== END 2021-03-22 03:45 | disposition home or self-care (01) ==
PROVIDERS: Emergency Provider Emergency Medicine; PCP Specialist/Technologist Athletic Trainer
DX: N13.2 Hydronephrosis with renal and ureteral calculous obstruction (principal); E87.6 Hypokalemia
CPT/HCPCS: 80053; 83690; 96361; 96365; 96375; 99285; 74177; 81003; 81015; 85025; 87086; 99284; J1885; J2405; J3480; J3490

== ENCOUNTER 2021-04-03 02:01 | Outpatient (CLI) | payer MEDICAID, SELFPAY ==
[2021-04-03 17:56] LABS: Source Nasal/Nares
[2021-04-03 21:46] LABS: COVID-19 PCR Negative (Negative)
== END 2021-04-03 02:02 | disposition home or self-care (01) ==
LOC: LBO 02:01
PROVIDERS: PCP Nurse Practitioner Family; Visit Provider Urology
DX: Z20.822 Contact with and (suspected) exposure to COVID-19 (principal)
CPT/HCPCS: 87635

== ENCOUNTER 2021-04-05 06:11 | Day surgery (SDC) | payer MEDICAID, SELFPAY ==
[2021-04-05] VITALS (7 sets, daily range): BP systolic 123–150; BP diastolic 78–100; PULSE 87–94; RESP 13–19; TEMP 36.5–36.7; O2SAT 92–95; BMI 46.7
--- NOTE | 2021-04-05 06:49 | HPE_ITS ---
Date of service: 04/05/21 Time of Service: 06:49 Assessment and Plan Assessment and plan (1) Left ureteral stone: Status: Acute Assessment and plan: Since he has not passed his stone, we will move ahead with a cystoscopy, left retrograde pyelogram, left ureteroscopy with possible holmium laser lithotripsy. we discussed potential risks including bleeding, infection and ureteral injury/stricture. We also discussed the possibility of requiring a staged procedure with a ureteral stent and a return to the OR to address the stone at a second procedure. History of Present Illness History of Present Illness Chief Complaint: Left ureteral stone Narrative: This is a 55-year-old gentleman who does have a past history significant for urolithiasis. He passed a 3 mm stone from his right ureter approximately 8 years ago. The stone was not retrieved for chemical analysis. He did not require urologic surgery. He presented to the emergency room about a week ago with left abdominal pain. He does have a history of diverticulitis and he suspected he was having another flareup of diverticular disease. When he was seen in the emergency room, he was evaluated with a CT of the abdomen and pelvis. He was found to have left hydronephrosis and hydroureter down to a left distal ureteral stone. He had no fever or chills. His urinalysis showed no evidence of infection. He had no gross hematuria. He was discharged on tamsulosin and analgesics. He has had residual left lower quadrant pain which has not been severe, but he has not passed his stone. He had nausea and vomiting when he presented to the emergency room, but none recently. He has no known metabolic disorders such as hyperparathyroidism or gout. Review of Systems Narrative: No fevers or chills No vision change or dysphasia No diabetes or thyroid Snores but does not use CPAP. No shortness of breath, cough or hemoptysis No chest pain or palpitations No nausea, vomiting, hepatitis, ulcers, jaundice No seizures, strokes or peripheral neuropathy No bleeding disorders or anemia Chronic back pain s/p lumbar surgery. Pain controlled with tramadol [facility] Medical History Diverticulitis of large intestine with perforation and abscess without bleeding Elevated liver enzymes HTN (hypertension) RLS (restless legs syndrome) Tinnitus, bilateral Vertigo Surgical History History of colonoscopy 01/29/19 Previous back surgery Family History Brother Heart disease Social History Smoking/Tobacco Use Status: Never Smoking risk assessment performed?: Yes Alcohol Intake: current Alcohol Intake frequency: holidays/special occasions only Drug use: Rarely Substance use type: marijuana Details: 1 joint per day Do you feel safe at home: Yes Do you feel safe in your relationship?: Yes Meds Allergies and Home Medications Allergies Allergy/AdvReac Type Severity Reaction Status Date / Time No Known Allergies Allergy Verified 04/05/21 06:26 Home Medications Medication Instructions Recorded Confirmed Type gabapentin 300 mg PO HS PRN 04/21/19 04/05/21 History amlodipine 10 mg PO DAILY 03/22/21 04/05/21 History chlorthalidone 50 mg PO DAILY 03/22/21 04/05/21 History ibuprofen 800 mg PO Q8H PRN 03/22/21 04/03/21 History lisinopril 40 mg PO DAILY 03/22/21 04/05/21 History tamsulosin 0.4 mg PO QHS #14 cap 03/22/21 04/05/21 Rx tramadol 50 mg PO Q8H PRN 03/22/21 04/05/21 History Exam Const General: cooperative and no acute distress Neck Neck: supple Resp Effort & Inspection: normal respiratory effort Auscultation: clear to auscultation bilaterally Cardio Rate: regular rate Rhythm: regular rhythm GI Inspection: normal to inspection and obesity Palpation: soft and no masses Neuro General: patient alert, patient awake and patient oriented x3 Results Last Vital Signs Temp 36.7 C 04/05/21 06:20 Pulse 88 04/05/21 06:20 Resp 18 04/05/21 06:20 BP 150/89 H 04/05/21 06:20 Pulse Ox 95 04/05/21 06:20
[2021-04-05] MEDS: Lactated Ringers 1,000 ML 80 ML IV (06:55)
--- NOTE | 2021-04-05 06:59 | W.ANESPRE ---
General Info Date of Service Date Performed: 04/05/21 Height: 5 ft 4 in Weight: 123.6 kg Body Mass Index (BMI): 46.7 Surgical Procedure: Operation Date: 04/05/21 07:40 Proposed Procedures Side Surgeon p Cystoscopy/Laser/Retrograde/Ureteroscopy Left Shakeel Peguero MD Meds Allergies and Home Medications Allergies Allergy/AdvReac Type Severity Reaction Status Date / Time No Known Allergies Allergy Verified 04/05/21 06:26 Home Medication Medication Instructions Recorded gabapentin 300 mg PO HS PRN 04/21/19 amlodipine 10 mg PO DAILY 03/22/21 chlorthalidone 50 mg PO DAILY 03/22/21 ibuprofen 800 mg PO Q8H PRN 03/22/21 lisinopril 40 mg PO DAILY 03/22/21 tamsulosin 0.4 mg PO QHS #14 cap 03/22/21 tramadol 50 mg PO Q8H PRN 03/22/21 Current Visit Medications: Current Medications Generic Name Dose Route Start Last Admin Trade Name Freq PRN Reason Stop Dose Admin Ringer's Solution 1,000 mls @ 80 mls/hr 04/05/21 06:00 04/05/21 06:55 IV 05/04/21 23:59 80 mls/hr INFUSION VIVIAN Administration Cefazolin Sodium 3,000 mg/ 100 mls @ 200 mls/hr 04/05/21 06:00 Sodium Chloride IVPB 04/05/21 16:00 PREOP VIVIAN IV Miscellaneous Supplies 1 each 04/05/21 06:00 Iv Access IV 05/04/21 23:59 DIRECTED VIVIAN Sodium Chloride 0 ml 04/05/21 06:00 Normal Saline Flush 10 Ml Syr IV 05/04/21 23:59 PRN PRN Sodium Chloride 0 ml 04/05/21 06:00 Normal Saline 10 Ml Vial IJ 05/04/21 23:59 DIRECTED PRN Sterile Water 0 ml 04/05/21 06:00 Water,Injection,Sterile 10 Ml Vial IJ 05/04/21 23:59 DIRECTED PRN PFSH Active Problems Active Problems: Problem Status Onset Code Left ureteral stone N20.1 Hypokalemia E87.6 DVT prophylaxis Z29.9 Lumbar disc herniation with radiculopathy M51.16 Fever, unknown origin R50.9 HTN (hypertension) I10 Hypoxia, sleep related G47.34 Discharge planning issues Z02.9 Radiculitis M54.10 Diverticulosis K57.90 Diverticulitis of large intestine with perforation and abscess without bleeding K57.20 Medical History Medical History Diverticulitis of large intestine with perforation and abscess without bleeding Elevated liver enzymes HTN (hypertension) RLS (restless legs syndrome) Tinnitus, bilateral Vertigo Surgical History Surgical History History of colonoscopy 01/29/19 Previous back surgery Tobacco Smoking/Tobacco Use Status: Never Alcohol Alcohol Intake: current Alcohol intake frequency: holidays/special occasions only Substance Use Substance use: Rarely Substance use type: marijuana Details: 1 joint per day Vital Signs and Lab Results Vital Signs Most Recent Vital Signs in EMR: Most Recent Vital Signs Temp Pulse Resp BP Pulse Ox 36.7 C 88 18 150/89 H 95 04/05/21 06:20 04/05/21 06:20 04/05/21 06:20 04/05/21 06:20 04/05/21 06:20 Lab Results Blood Type / Crossmatch: No Data to Display Complete Blood Count: White Blood Count 12.68 10^3/uL (4.4-10.8) H 03/22/21 00:44 03/22/21 Red Blood Count 5.60 10^6/uL (4.36-5.78) 03/22/21 00:44 03/22/21 Hemoglobin 15.4 g/dL (13.5-17.5) 03/22/21 00:44 03/22/21 Hematocrit 46.3 % (40.0-50.0) 03/22/21 00:44 03/22/21 Platelet Count 289 10^3/uL (130-400) 03/22/21 00:44 03/22/21 Complete Metabolic Panel: Sodium Level 141 mmol/L (136-145) 03/22/21 00:44 03/22/21 Potassium Level 2.7 mmol/L (3.5-5.1) L* 03/22/21 00:44 03/22/21 Chloride Level 99 mmol/L (98-107) 03/22/21 00:44 03/22/21 Carbon Dioxide Level 32.7 mmol/L (21.0-32.0) H 03/22/21 00:44 03/22/21 Blood Urea Nitrogen 9 mg/dL (7-18) 03/22/21 00:44 03/22/21 Creatinine 0.8 mg/dL (0.70-1.30) 03/22/21 00:44 03/22/21 Estimated GFR/1.73 m2 >= 60.00 (mL/min/1.73m2) 03/22/21 00:44 03/22/21 Calcium Level 8.9 mg/dL (8.5-10.1) 03/22/21 00:44 03/22/21 Albumin 3.7 g/dL (3.4-5.0) 03/22/21 00:44 03/22/21 Glucose Level 153 mg/dL (74-106) H 03/22/21 00:44 03/22/21 Liver Function Panel: Alanine Aminotransferase (ALT/SGPT) 33 U/L (16-63) 03/22/21 00:44 03/22/21 Aspartate Amino Transf (AST/SGOT) 18 U/L (15-37) 03/22/21 00:44 03/22/21 Coagulation Panel: No Data to Display Cardiac Panel: No Data to Display Arterial Blood Gas: No Data to Display Venous Blood Gas: No Data to Display Pancreas Panel: Lipase 55 U/L (73-393) 03/22/21 00:44 03/22/21 Thyroid Panel: No Data to Display Infectious Disease: Coronavirus (COVID-19)(PCR) Negative (Negative) 04/03/21 08:27 04/03/21 Coronavirus 2019 Source Nasal/Nares 04/03/21 08:27 04/03/21 Blood Cultures: No Data to Display Toxicology Panel: No Data to Display Anesthesia Assessment and Plan Anesthesia History Personal History: No History of Anesthesia Complications Family History: No Family History of Anesthesia Complications Exercise Tolerance Exercise Tolerance: Metabolic Equivalents>4 Pertinent Negatives Pertinent Negatives: No Symptoms of GERD Cardiac & Pulmonary Exam Cardiac Exam: Normal S1/S2 Heart Sounds Pulmonary Exam: Clear Bilateral Breath Sounds Airway Exam Known Difficult Airway: No Mallampati Class: 3 Mouth Opening: Normal (> 3cm) Thyromental Distance: Less than 3 cm Neck Range of Motion: Full ROM Neck Circumference: Thick Teeth Condition: Normal Dentition ASA Classification ASA Score: ASA 3 Emergency Case?: No NPO Status NPO Status: NPO Clears >2 hours, Solids >8 hours Anesthesia Plan Resuscitation Status: Full Code Anesthesia Technique: General Anesthesia Airway Planned: LMA Monitors Used: Standard Monitors
[2021-04-05] MEDS: ceFAZolin 3,000 MG in Normal Saline 100 ML 200 MG IVPB (07:30)
[2021-04-05] MEDS: Lidocaine 2% Jelly 6 ML SYR (07:47)
[2021-04-05] MEDS: Omnipaque 300 MG/ML 50 ML BTL (07:56)
--- NOTE | 2021-04-05 08:02 | DI.RAD_ITS ---
Exam(s) XR RETROGRADE IN OR EXAM: XR RETROGRADE IN OR CLINICAL HISTORY: Left ureteral stone. TECHNIQUE: 2D digital imaging was performed. COMPARISON: No exams were available for comparison FINDINGS: Fluoroscopy was provided during urologic procedure for ureteral calculus. See procedure report for details. Total fluoroscopy time 10.8 seconds Total clipped of dose= 6.71 mGy IMPRESSION: DATA REPOSITORY: RADIATION DOSE DELIVERED:
--- NOTE | 2021-04-05 08:04 | W.PM.DSUDISC ---
Discharge Plan Disposition Patient Disposition: HOME Condition: Stable Discharge Details Reason For Visit: ureteroscopy Attending Provider: Shakeel Peguero Primary Care Provider: Lizette Greene Home Meds and New Rx's Prescriptions: No Action gabapentin 300 mg capsule 300 mg PO HS PRNRF: 0 chlorthalidone 50 mg tablet 50 mg PO DAILY RF: 0 tramadol 50 mg tablet 50 mg PO Q8H PRNRF: 0 amlodipine 10 mg tablet 10 mg PO DAILY RF: 0 lisinopril 40 mg tablet 40 mg PO DAILY RF: 0 ibuprofen 800 mg tablet 800 mg PO Q8H PRNRF: 0 tamsulosin 0.4 mg capsule 0.4 mg PO QHS Qty: 14 RF: 0 Discharge Instructions Additional Instructions: no need to strain urine followup 6 weeks with renal US Activity:: Activity as Tolerated Shower/Bathe:: 24 hours Diet:: As Tolerated Discharge Orders Discharge Orders: Discharge Order (Routine); Ordered 04/05/21 Ordered By: Shakeel Peguero DS: Diagnosis Discharge Diagnosis (1) Left ureteral stone: Status: Acute
--- NOTE | 2021-04-05 08:08 | ROE_ITS ---
Date of service: 04/05/21 Time of Service: 08:08 Operative Note Operative Note DATE OF PROCEDURE: 04/05/21 PRE-OP DIAGNOSIS: Left ureteral stone POST-OP DIAGNOSIS: same PROCEDURE: Endoscopy, left retrograde pyelogram, left semirigid ureteroscopy SURGEON: Shakeel Peguero ANESTHESIA TYPE: Local By Surgeon and General LMA/ETT Refer to Anesthesia Record ESTIMATED BLOOD LOSS: 5 PATHOLOGY: none sent COMPLICATIONS: None Patient was transported to: PACU Patient's condition: stable Implants: None Indications: This is a 55-year-old gentleman who presented to the emergency room with left abdominal pain. He was found to have a left distal ureteral stone. He was treated with analgesics and alpha blockers. His pain improved, but he did not pass his stone as far as he is aware. He presents now for ureteroscopy. Findings: No large stone in distal left ureter Procedure Description: Was brought to the operating room on 04/05/2021. He was given preoperative IV antibiotics. After successful induction of general anesthesia, he was placed in the dorsal lithotomy position. His genitalia was prepped and draped. 2% Xylocaine jelly was instilled into the urethra to act as a local anesthetic. A 22 Greenlandic rigid cystoscope was passed through the urethra into the bladder. The urethra and bladder were inspected with a 30 degree lens. The pendulous, bulbar and membranous urethra's appeared normal with no s trictures. The prostatic urethra showed some mild lateral lobe enlargement but no significant median lobe. The bladder neck was entered and the bladder mucosa was inspected. No stone was visualized within the lumen of the bladder. The left ureteral orifice appeared normal with no surrounding edema. I was able to cannulate the ureteral orifice with a 6 Greenlandic access catheter and we did a retrograde pyelogram by injecting Omnipaque through the access catheter under fluoroscopic guidance. There appeared to be a filling defect in the distal ureter above the level of the suburethral tunnel. I passed a guidewire through the access catheter and removed the catheter and cystoscope. I then passed the semirigid ureteroscope through the urethra into the bladder. I maneuvered the scope up the remainder of the left ureter. A few small stone fragments were identified but no large stone burden was visualized. I was able to pass the scope way up to the visible pulsations of the iliac vessels before withdrawing the scope back down the ureter. With no visible stones and no significant trauma to the ureter, we elected not to place a ureteral stent. The scope and guidewire were then removed. The patient tolerated the procedure well with no complications.
[2021-04-05] MEDS: Phenazopyridine 200 MG TAB PO (08:57)
--- NOTE | 2021-04-05 09:23 | W.ANESPOSTOP ---
Postoperative Evaluation Date, Time and Location Date Performed: 04/05/21 Time Performed: 09:15 Patient Location: Day Surgery Unit Vital Signs Most Recent Imported Vital Signs: Most Recent Vital Signs Temp Pulse Resp BP Pulse Ox 36.6 C 87 18 128/100 H 92 04/05/21 08:45 04/05/21 08:45 04/05/21 08:45 04/05/21 08:45 04/05/21 08:45 Pain Score Most Recent Pain Score: Most Recent Pain Score Pain Level 0 04/05/21 08:45 Assessment Mental Status: Awake (Alert & Oriented to Patient Baseline) Airway and Respiratory Function: Patent airway with normal (patient baseline) respiratory exam Cardiovascular Function: Hemodynamically Stable (Patinet aware of elevated blood pressures, will monitor, asymptomatic) and Hemodynamically Unstable (See Explanation) Hydration Status: Adequately Hydrated Nausea & Vomiting: No Nausea or Vomiting Pain: Pt. Denies Any Pain Peripheral Nerve Block: Patient did not receive a nerve block
== END 2021-04-05 06:12 | disposition home or self-care (01) ==
PROVIDERS: PCP Nurse Practitioner Family; Visit Provider Urology
PROC: (CPT 52351; principal; 2021-04-05 07:30)
DX: N20.1 Calculus of ureter (principal)
CPT/HCPCS: 52351; 74420; J0690; J1100; J1885; J2405; J2704; Q9967

== ENCOUNTER 2021-05-15 01:13 | Outpatient (CLI) | payer MEDICAID, SELFPAY ==
--- NOTE | 2021-05-15 06:15 | DI.US_ITS ---
Exam(s) US RENAL EXAM: US RENAL CLINICAL HISTORY: r/o hydronephrosis after ureteroscopy,lt ureteral stone,n20.1. TECHNIQUE: Estrada scale, color and spectral Doppler were used. COMPARISON: US US ABDOMEN from 01/03/[address] ABDOMEN PELVIS W from 03/22/[address] ABDOMEN PELVIS W from 03/22/2021 FINDINGS: Renal size in cm: Right: 15.5. Left: 14.3. Echogenicity: Normal. Hydronephrosis: No. Cyst or mass: There is a stable 1.7 cm right renal cyst. Nephrolithiasis: No. Other findings: None. Bladder:Normal. There is a 6 mm echogenic focus at the left ureterovesicular junction. This may repr esent a distal calculus. No significant hydronephrosis. Ureteral jets: Right: Visualized and unremarkable. Left: Visualized and unremarkable. Prevoid vol:155 cc Postvoid vol:6 cc Prostate: 21 cc Renal color flow: Symmetric and within normal limits. IMPRESSION: 1. 6 mm echogenic focus seen at the left UVJ suspicious for distal ureteral stone. No hydronephrosis . 2. Stable right renal cysts. No follow-up is recommended. DATA REPOSITORY:
== END 2021-05-15 01:33 ==
PROVIDERS: PCP Nurse Practitioner Family; Visit Provider Urology
DX: N20.1 Calculus of ureter (principal); N28.1 Cyst of kidney, acquired
CPT/HCPCS: 76770

== ENCOUNTER 2021-07-13 12:39 | Outpatient (REF) | payer MEDICAID, SELFPAY ==
[2021-07-13 12:52] LABS: Hemoglobin A1C 6.2 % (<5.7)
[2021-07-13 12:54] LABS: Anion Gap 9.8 mmol/L (3-11); BUN 16 mg/dL (7-18); CO2 29.2 mmol/L (21.0-32.0); CREATININE 0.8 mg/dL (0.70-1.30); Calcium 9.2 mg/dL (8.5-10.1); Calculated LDL 160 mg/dL (<100); Chloride 101 mmol/L (98-107); Cholesterol 230 mg/dL (<200); Ferritin 131 ng/mL (26-388); Glucose 118 mg/dL (74-106); HDL Cholesterol 39 mg/dL (40-60); Potassium 3.8 mmol/L (3.5-5.1); Sodium 140 mmol/L (136-145); Triglyceride 158 mg/dL (<150)
== END 2021-07-13 12:40 | disposition home or self-care (01) ==
LOC: NCHCN 12:39
PROVIDERS: PCP Nurse Practitioner Family; Visit Provider Nurse Practitioner Family
DX: E78.5 Hyperlipidemia, unspecified (principal); I10 Essential (primary) hypertension; E11.9 Type 2 diabetes mellitus without complications; R79.89 Other specified abnormal findings of blood chemistry; Z00.00 Encounter for general adult medical examination without abnormal findings
CPT/HCPCS: 80048; 80061; 82728; 83036

== ENCOUNTER 2022-02-01 16:42 | Outpatient (REF) | payer MEDICAID, SELFPAY ==
[2022-02-01 20:16] LABS: Calculated LDL 112 mg/dL (<100); Cholesterol 199 mg/dL (<200); HDL Cholesterol 38 mg/dL (40-60); Triglyceride 245 mg/dL (<150)
== END 2022-02-01 16:43 | disposition home or self-care (01) ==
LOC: NCHCN 16:42
PROVIDERS: PCP Nurse Practitioner Family; Visit Provider Nurse Practitioner Family
DX: E78.5 Hyperlipidemia, unspecified (principal)
CPT/HCPCS: 80061

== ENCOUNTER 2022-08-16 17:17 | Outpatient (REF) | payer MEDICAID, SELFPAY ==
[2022-08-16 17:26] LABS: Hemoglobin A1C 10.1 % (<5.7)
[2022-08-16 17:53] LABS: ALT 186 U/L (16-63); AST 103 U/L (15-37); Albumin 3.6 g/dL (3.4-5.0); Alkaline Phosphatase 62 U/L (46-116); Anion Gap 7.7 mmol/L (3-11); BUN 12 mg/dL (7-18); Bilirubin, Total 0.5 mg/dL (0.2-1.0); CO2 31.3 mmol/L (21.0-32.0); CREATININE 0.7 mg/dL (0.70-1.30); Calcium 9.2 mg/dL (8.5-10.1); Calculated LDL 156 mg/dL (<100); Chloride 99 mmol/L (98-107); Cholesterol 222 mg/dL (<200); Estimated GFR 107.47 (mL/min/1.73m2); Glucose 216 mg/dL (74-106); HDL Cholesterol 44 mg/dL (40-60); Potassium 3.5 mmol/L (3.5-5.1); Sodium 138 mmol/L (136-145); Triglyceride 114 mg/dL (<150)
== END 2022-08-16 17:18 | disposition home or self-care (01) ==
LOC: NCHCN 17:17
PROVIDERS: PCP Nurse Practitioner Family; Visit Provider Nurse Practitioner Family
DX: E11.9 Type 2 diabetes mellitus without complications (principal); E78.5 Hyperlipidemia, unspecified
CPT/HCPCS: 80053; 80061; 83036

== ENCOUNTER 2022-09-10 01:19 | Outpatient (CLI) | payer MEDICAID, SELFPAY ==
--- NOTE | 2022-09-10 08:45 | DI.US_ITS ---
Exam(s) US ABDOMEN EXAM: US ABDOMEN CLINICAL HISTORY: ELEVATED LIVER ENZYMES, R74.8 TECHNIQUE: Ultrasound of complete upper abdomen performed using standard protocol. COMPARISON: US US RENAL from 05/15/2021 D scan performed 03/22/2021 reviewed. FINDINGS: There is no ascites evident. LIVER: Small cyst in the left hepatic lobe is noted, unchanged prior CT scan. This measures 1.2 x 1. 2 cm. GALLBLADDER/BILIARY: There are no gallstones. No gallbladder wall edema nor pericholecystic fluid. The common hepatic duct isnot dilated, measuring 5mm at the level of burke hepatis. PANCREAS: There is no evidence of pancreatic mass nor dilatation of the pancreatic duct. SPLEEN: The spleen is not enlarged and there are no intrasplenic lesions evident. KIDNEYS:There is a 1.6 x 1.5 cm benign cyst in the right kidney and there is a smaller 1.2 x 1.1 cyst in the left kidney. No solid renal masses. No cortical thinning. There is no hydronephrosis on th e left side at this time, as was evident on the prior CT scan of March 2021. no echogenic calculi s een in either kidney at this time. ABDOMINAL AORTA: There is no evidence of abdominal aortic aneurysm. IVC: Normal diameter where visualized. IMPRESSION: 1. No evidence of cholelithiasis nor dilatation of the biliary tree. 2. Solitary unchanged benign cyst in the left hepatic lobe and benign cysts in the kidneys. 3. No hydronephrosis at this time. Prior CT scan March 2021 revealed left-sided hydronephrosis du e to obstructing 6 millimeter calculus in the lower left ureter at that time. There are no shadowing calculi seen in the kidneys at this time. DATA REPOSITORY:
== END 2022-09-10 01:39 ==
LOC: DI 01:19
PROVIDERS: PCP Nurse Practitioner Family; Visit Provider Nurse Practitioner Family
DX: R74.8 Abnormal levels of other serum enzymes (principal); N28.1 Cyst of kidney, acquired
CPT/HCPCS: 76700

== ENCOUNTER 2022-12-02 17:08 | Outpatient (REF) | payer MEDICAID, SELFPAY ==
[2022-12-02 21:12] LABS: COMMENT (LAB VIEW ONLY) 143.72 mg/dL; PROTEIN 13.6 mg/dL; Prot/Crea Ur Ratio 0.09
== END 2022-12-02 17:09 | disposition home or self-care (01) ==
LOC: NCHCN 17:08
PROVIDERS: PCP Nurse Practitioner Family; Visit Provider Nurse Practitioner Family
DX: R80.9 Proteinuria, unspecified (principal)
CPT/HCPCS: 82565; 84156

== ENCOUNTER 2023-01-08 19:26 | Emergency (ER) | payer MEDICAID, SELFPAY ==
[2023-01-08] VITALS (29 sets, daily range): BP systolic 72–125; BP diastolic 51–81; PULSE 72–87; RESP 12–20; O2SAT 78–98
--- NOTE | 2023-01-08 19:30 | RT.EKG_ITS ---
APPROVED REPORT Exam: Resting ECG Reason for Exam: loss of con Patient Location: E HR:77 bpm ECG Measurements Heart Rate 77 AXIS LA 169 P 39 QRSd 104 QRS -43 QT 404 T -6 QTc 459 Conclusion Sinus rhythm...normal P axis, V-rate 60- [address] segment or T wave abnormalities to suggest occlusive RI
--- NOTE | 2023-01-08 19:45 | DI.CT_ITS ---
Exam(s) CT HEAD WO EXAM: CT HEAD WO CLINICAL HISTORY: syncnope fall head strike. TECHNIQUE: Imaging Protocol: Axial computed tomography images with coronal and sagittal reformatted images were created and reviewed COMPARISON: CT CT HEAD WO from 11/27/2018 FINDINGS: Ventricles and Extra axial spaces: Normal in size and morphology for the patient's age. Hemorrhage: None. Cerebral parenchyma: No acute territorial infarct is identified. Midline shift: None. Brainstem/Cerebellum: Normal. Calvarium: Normal. Visualized Paranasal sinuses/Mastoids: Clear. Soft Tissues: Unremarkable. IMPRESSION: No acute intracranial process. RADIATION DOSE DELIVERED: 825.82mGy.cm Total DLP DATA REPOSITORY: All CT scans at this facility are submitted to the National Radiology Data Registry (NRDR) Dose Index Registry (DIR) with the [employer] (ACR). RADIATION OPTIMIZATION: All CT scans at this facility use at least one of these dose optimization te chniques: automated exposure control; mA and/or kV adjustment per patient size (includes targeted exa ms where dose is matched to clinical indication); or iterative reconstruction.
--- NOTE | 2023-01-08 19:58 | ED.GENADUL_ITS ---
Discharge Plan Discharge Details Chief Complaint: Dizzy/Sync Primary Care Provider: Lizette Greene ED Provider: Bonnie Rojas Home Meds and New Rx's Prescriptions: No Action tramadol 50 mg tablet 50 mg PO Q8H PRN (Reason: pain) Qty: 30 0RF gabapentin 300 mg capsule 300 mg PO HS PRN pramipexole 0.5 mg tablet 0.5 mg PO .QHS Patient Comments: TAKE 1 TO 1 AND 1/2 TABLETS BY MOUTH NIGHTLY Trulicity 0.75 mg/0.5 mL pen injector 0.75 mg SUBCUT Patient Comments: INJECT 1 PEN UNDER THE SKIN ONCE WEEKLY chlorthalidone 50 mg tablet 50 mg PO DAILY Patient Comments: TAKE ONE TABLET BY MOUTH EVERY DAY DISCONTINUE HCTZ amlodipine 10 mg tablet 10 mg PO DAILY Patient Comments: TAKE ONE TABLET BY MOUTH EVERY DAY lisinopril 40 mg tablet 40 mg PO DAILY Patient Comments: TAKE ONE TABLET BY MOUTH EVERY DAY ibuprofen 800 mg tablet 800 mg PO Q8H PRN tamsulosin 0.4 mg capsule 0.4 mg PO QHS Qty: 14 0RF Medical Decision Making 57yo M with hx of HTN, HLD, prediabetes, recent weight-loss of around 50lbs (intentional), presenting for syncope. Reports nausea vomiting x 1 day. No abdominal pain, no chest pain, no palpations. No bleeding including no dark or melanotic stool. [place] like he was going to pass out just prior to losing consciousness; reports feeling better on my exam. Vital signs in triage hypotensive with SBP in 70's, no tachycardia or hypoxia. Physical exam reassuring. Not presenting as septic. Lower suspicion for acute cardiac etiology given overall history- on 3 antihypertensives with unchanged doses over the past several years now with 50lbs of weight loss, as well as nausea and vomiting; most likely volume down in the setting of medications that now require adjustment. CT independently reviewed, no bleed on my view, agree with radiology read below. EKG NSR, appropriate intervals, no concerning ST segment or T wave abnormalities to suggest occluisve NH. Labs reviewed as below, CBC with mild leukocytosis to 13.4, no anemia. CBC with hypokalemia (K 2.9; patient does have hx of this on record review, borderline low magnesium Ddimer negative; would not pursue further workup for pulmonary embolism. Given 2L IVFB, PO zofran, potassium and magnesium orally repleted. PO challenged and tolerated well. Delta troponin pending; if normal and patient able to ambulate without symptoms would discharge home with oral electrolyte repletion and advise holding home chlorathalidone until discussed with PCP. Signed out to oncoming physician, dani vincent. Imaging Data Radiologic Study: Radiologist's impression: IMPRESSION: No acute intracranial abnormality. Lab Data Lab results reviewed: Yes I reviewed the patient's lab results. Labs: Laboratory Tests Range/Units 01/08/23 01/08/23 01/08/23 19:55 19:55 19:55 WBC (4.4-10.8) 10^3/uL RBC (4.36-5.78) 10^6/uL Hgb (13.5-17.5) g/dL Hct (40.0-50.0) % MCV (80-95) fL MCH (27.0-33.0) pg MCHC (32.0-36.0) % RDW (11.8-14.1) % Plt Count (130-400) 10^3/uL MPV (8.0-11.0) fL Immature Gran % Neutrophils % Lymphocytes % Monocytes % Eosinophils % Basophils % Nucleated RBC % (0.0-0.3) % Absolute Neutrophils (1.2-6.7) 10^3/uL Absolute Lymphocytes (1.2-3.4) 10^3/uL Absolute Monocytes (0.1-0.8) 10^3/uL Absolute Eosinophils (0.0-0.7) 10^3/uL Absolute Basophils (0.0-0.2) 10^3/uL D-Dimer (<500) ng/mlFEU 378 Sodium (136-145) mmol/L 145 Potassium (3.5-5.1) mmol/L 2.9 L Chloride (98-107) mmol/L 103 Carbon Dioxide (21.0-32.0) mmol/L 29.0 Anion Gap (3-11) mmol/L 13.0 H BUN (7-18) mg/dL 14 Creatinine (0.70-1.30) mg/dL 1.2 Est GFR (CKD-EPI 2020) (mL/min/1.73m2) 70.53 Glucose (74-106) mg/dL 167 H Calcium (8.5-10.1) mg/dL 9.0 Magnesium (1.8-2.4) mg/dL 1.7 L Total Bilirubin (0.2-1.0) mg/dL 0.8 AST (15-37) U/L 22 ALT (16-63) U/L 33 Alkaline Phosphatase (46-116) U/L 56 Troponin I (<or=60) ng/L < 50 Total Protein (6.4-8.2) g/dL 7.7 Albumin (3.4-5.0) g/dL 3.7 TSH (0.36-3.74) uIU/mL 3.34 Range/Units 01/08/23 19:55 WBC (4.4-10.8) 10^3/uL 13.47 H RBC (4.36-5.78) 10^6/uL 5.14 Hgb (13.5-17.5) g/dL 14.6 Hct (40.0-50.0) % 42.3 MCV (80-95) fL 82 MCH (27.0-33.0) pg 28.4 MCHC (32.0-36.0) % 34.5 RDW (11.8-14.1) % 13.8 Plt Count (130-400) 10^3/uL 282 MPV (8.0-11.0) fL 9.8 Immature Gran % 0.4 Neutrophils % 58.6 Lymphocytes % 29.7 Monocytes % 8.4 Eosinophils % 2.4 Basophils % 0.5 Nucleated RBC % (0.0-0.3) % 0.0 Absolute Neutrophils (1.2-6.7) 10^3/uL 7.89 H Absolute Lymphocytes (1.2-3.4) 10^3/uL 4.00 H Absolute Monocytes (0.1-0.8) 10^3/uL 1.13 H Absolute Eosinophils (0.0-0.7) 10^3/uL 0.32 Absolute Basophils (0.0-0.2) 10^3/uL 0.07 D-Dimer (<500) ng/mlFEU Sodium (136-145) mmol/L Potassium (3.5-5.1) mmol/L Chloride (98-107) mmol/L Carbon Dioxide (21.0-32.0) mmol/L Anion Gap (3-11) mmol/L BUN (7-18) mg/dL Creatinine (0.70-1.30) mg/dL Est GFR (CKD-EPI 2020) (mL/min/1.73m2) Glucose (74-106) mg/dL Calcium (8.5-10.1) mg/dL Magnesium (1.8-2.4) mg/dL Total Bilirubin (0.2-1.0) mg/dL AST (15-37) U/L ALT (16-63) U/L Alkaline Phosphatase (46-116) U/L Troponin I (<or=60) ng/L Total Protein (6.4-8.2) g/dL Albumin (3.4-5.0) g/dL TSH (0.36-3.74) uIU/mL HPI General Mode of arrival: ambulatory . Date/Time Provider Initiated Documentation: 01/08/23 19:34 . Limitations to Documentation: no limitations . Information obtained by: patient and family . HPI Narrative: 57yo M with hx of HTN, HLD, prediabetes, recent weight-loss of around 50lbs (intentional), presenting for syncope. Has felt generally unwell today with nausea, two episodes of vomiting (nonbloody nonbilious). Stood up to get a drink of water and felt very lightheaded; lost consciousness and fell to the ground. Came to within seconds per at bedside. Normal blood glucose per . No chest pain or shortness of breath at any point. No palpations. No recent changes in blood pressure medications. He is otherwise in his usual state of health with no fevers, chills, rash, abdominal pain, diarrhea, dysuria, hematuria, or other concerns. Related Data Home Medications Medication Instructions Recorded Confirmed gabapentin 300 mg capsule 300 mg PO HS PRN 04/21/19 01/08/23 amlodipine 10 mg tablet 10 mg PO DAILY 03/22/21 01/08/23 chlorthalidone 50 mg tablet 50 mg PO DAILY 03/22/21 01/08/23 ibuprofen 800 mg tablet 800 mg PO Q8H PRN 03/22/21 01/08/23 lisinopril 40 mg tablet 40 mg PO DAILY 03/22/21 01/08/23 tamsulosin 0.4 mg capsule 0.4 mg PO QHS #14 caps 03/22/21 01/08/23 tramadol 50 mg tablet 50 mg PO Q8H PRN pain #30 tabs 05/15/21 01/08/23 dulaglutide 0.75 mg/0.5 mL 0.75 mg subcut 01/08/23 subcutaneous pen injector (Trulicity) pramipexole 0.5 mg tablet 0.5 mg PO .QHS 01/08/23 01/08/23 Previous Rx's Medication Instructions Recorded tamsulosin 0.4 mg capsule 0.4 mg PO QHS #14 caps 03/22/21 tramadol 50 mg tablet 50 mg PO Q8H PRN pain #30 tabs 05/15/21 Allergies Allergy/AdvReac Type Severity Reaction Status Date / Time No Known Allergies Allergy Verified 01/08/23 19:43 General Stated Complaint: Dizzy/Sync RICHARD: 2 Review of Systems Narrative: see HPI PFSH All Active Problems (Updated 05/15/21 @ 09:08 by Shakeel Peguero MD) Right renal stone (Acute) Left ureteral stone (Acute) Hypokalemia (Acute) DVT prophylaxis (Acute) Lumbar disc herniation with radiculopathy (Acute) Fever, unknown origin (Acute) HTN (hypertension) (Chronic) Hypoxia, sleep related (Acute) Discharge planning issues (Acute) Radiculitis (Acute) Diverticulosis (Acute) Medical History Diverticulitis of large intestine with perforation and abscess without bleeding Elevated liver enzymes HTN (hypertension) RLS (restless legs syndrome) Tinnitus, bilateral Vertigo Surgical History History of colonoscopy 01/29/19 Previous back surgery Family History Brother Heart disease Social History Smoking/Tobacco Use Status: Never Smoking risk assessment performed?: Yes Alcohol Intake: current Alcohol Intake frequency: holidays/special occasions only Drug use: Rarely Substance use type: marijuana Details: 1 joint per day Do you feel safe at home: Yes Do you feel safe in your relationship?: Yes Exam Narrative Exam Narrative: General: Alert, well appearing, well nourished, in no acute distress. Head: Normocephalic, atraumatic Neck: Trachea midline, Neck supple. ENT: MMM. No oropharygeal lesions or exudate. Cardiac: RRR, no murmurs appreciated Resp: No respiratory distress. CTAB. Abd: Soft, non-distended, nontender : No suprapubic tenderness. No CVA tenderness. Extremities: No deformities. No peripheral edema. Neuro: GCS 15. PERRL. EOMI. Fluent speech, no dysarthria. Motor- 5/5 strength symmetric bilateral upper and lower extremities Sensation- Intact to light touch and symmetric multiple dermatomes including upper and lower extremities Course Vital Signs Vital signs: Vital Signs Pulse 79 01/08/23 19:31 Respiratory Rate 16 01/08/23 19:31 Blood Pressure 72/51 L 01/08/23 19:31 Pulse Oximetry 98 01/08/23 19:31 Pulse 79 01/08/23 19:31 Respiratory Rate 16 01/08/23 19:31 Respiratory Effort Normal 01/08/23 19:31 Blood Pressure 72/51 L 01/08/23 19:31 Blood Pressure Position Sitting 01/08/23 19:31 Pulse Oximetry 98 01/08/23 19:31 Oxygen Delivery Method Room Air 01/08/23 19:31 Oxygen Flow Rate 0 01/08/23 19:31 Pain Level 0 01/08/23 19:31
[2023-01-08] MEDS: Normal Saline 1,000 ML 1000 ML IV (20:01)
[2023-01-08 20:03] LABS: Abs Immature Grans 0.06 10^3/uL (0.0-0.06); Absolute Basophil Count 0.07 10^3/uL (0.0-0.2); Absolute Eosinophil Count 0.32 10^3/uL (0.0-0.7); Absolute Monocyte Count 1.13 10^3/uL (0.1-0.8); Absolute Neutrophil Count 7.89 10^3/uL (1.2-6.7); Basophils % 0.5; Eosinophils % 2.4; HCT 42.3 % (40.0-50.0); HGB 14.6 g/dL (13.5-17.5); Immature Grans % 0.4; Lymphocytes % 29.7; MCH 28.4 pg (27.0-33.0); MCHC 34.5 % (32.0-36.0); MCV 82 fL (80-95); MPV 9.8 fL (8.0-11.0); Monocytes % 8.4; Neutrophils % 58.6; Platelet Count 282 10^3/uL (130-400); RBC 5.14 10^6/uL (4.36-5.78); RDW 13.8 % (11.8-14.1); RDW-SD 40.9 fL; WBC 13.47 10^3/uL (4.4-10.8)
[2023-01-08 20:20] LABS: ALT 33 U/L (16-63); AST 22 U/L (15-37); Albumin 3.7 g/dL (3.4-5.0); Alkaline Phosphatase 56 U/L (46-116); BUN 14 mg/dL (7-18); Bilirubin, Total 0.8 mg/dL (0.2-1.0); CREATININE 1.2 mg/dL (0.70-1.30); Chloride 103 mmol/L (98-107); Estimated GFR 70.53 (mL/min/1.73m2); Glucose 167 mg/dL (74-106); Magnesium 1.7 mg/dL (1.8-2.4); Sodium 145 mmol/L (136-145); Total Protein 7.7 g/dL (6.4-8.2)
[2023-01-08 20:21] LABS: Potassium 2.9 mmol/L (3.5-5.1)
[2023-01-08 20:32] LABS: TSH 3.34 uIU/mL (0.36-3.74); Troponin I < 50 ng/L (<or=60)
[2023-01-08 20:34] LABS: D-Dimer 378 ng/mlFEU (<500)
--- NOTE | 2023-01-08 20:45 | DI.VRAD_ITS ---
PROCEDURE INFORMATION: Exam: CT Head Without Contrast Exam date and time: 01/08/2023 8:21 PM Age: 57 years old Clinical indication: Other: Syncnope fall head strike TECHNIQUE: Imaging protocol: Computed tomography of the head without contrast. Radiation optimization: All CT scans at this facility use at least one of these dose optimization techniques: automated exposure control; mA and/or kV adjustment per patient size (includes targeted exams where dose is matched to clinical indication); or iterative reconstruction. COMPARISON: CT HEAD WO 11/27/2018 3:30 PM FINDINGS: Brain: Mild volume loss No hemorrhage. Unremarkable white matter. No mass effect. Cerebral ventricles: No ventriculomegaly. Paranasal sinuses: Visualized sinuses are unremarkable. No fluid levels. Mastoid air cells: Visualized mastoid air cells are well aerated. Bones/joints: Unremarkable. No acute fracture. Soft tissues: Unremarkable. IMPRESSION: No acute intracranial abnormality. Dictated and Authenticated by: Ronald Mcqueen MD. Ordering:CATHIE Nicole MD
[2023-01-08] MEDS: Magnesium Oxide 400 MG TAB (21:33)
[2023-01-08] MEDS: Normal Saline 500 ML 1000 ML IV (21:33)
[2023-01-08] MEDS: Ondansetron O.D.T. 4 MG TABEF (21:34)
[2023-01-08] MEDS: Potassium Chloride 20 MEQ TABCR 80 MEQ PO (21:35)
[2023-01-08 23:28] LABS: Troponin I < 50 ng/L (<or=60)
--- NOTE | 2023-01-08 23:36 | ED.PROG_ITS ---
Date of service: 01/08/23 Time of Service: 23:36 Medical Decision Making Patient sent to me 30 minutes ago to check a second troponin and second troponin was negative he had a syncopal episode most likely from multiple factors which include 3 antihypertensive dehydration and gastroenteritis and will be discharg ed home Sign Out Sign Out Data: Sign Out Comment: 57yo M presented with syncope in the setting of N/V. Recent weight loss, on multiple antihypertensives. EKG no acute ischemia, troponin and d-dimer negative. Hypokalemia (repleted). Given 2L IVFB. Plan to get delta troponin and trial ambulation, if trop negative and asymptomatic would dc home with zofran, hold home chlorothalidone Last updated by Bonnie Rojas MD at 01/08/23 23:29 Discharge Plan Disposition Patient Disposition: Home Condition: Improving Discharge Details Clinical Impression: Syncope, Hypovolemia Primary Care Provider: Lizette Greene ED Provider: Bonnie Rojas Home Meds and New Rx's Prescriptions: Continued tramadol 50 mg tablet 50 mg PO Q8H PRN (Reason: pain) Qty: 30 0RF gabapentin 300 mg capsule 300 mg PO HS PRN pramipexole 0.5 mg tablet 0.5 mg PO .QHS Patient Comments: TAKE 1 TO 1 AND 1/2 TABLETS BY MOUTH NIGHTLY Trulicity 0.75 mg/0.5 mL pen injector 0.75 mg SUBCUT Patient Comments: INJECT 1 PEN UNDER THE SKIN ONCE WEEKLY chlorthalidone 50 mg tablet 50 mg PO DAILY Patient Comments: TAKE ONE TABLET BY MOUTH EVERY DAY DISCONTINUE HCTZ amlodipine 10 mg tablet 10 mg PO DAILY Patient Comments: TAKE ONE TABLET BY MOUTH EVERY DAY lisinopril 40 mg tablet 40 mg PO DAILY Patient Comments: TAKE ONE TABLET BY MOUTH EVERY DAY ibuprofen 800 mg tablet 800 mg PO Q8H PRN tamsulosin 0.4 mg capsule 0.4 mg PO QHS Qty: 14 0RF Discharge Instructions Instructions: Syncope (ED) Discharge Data Discharge Physician: John Mccarthy
== END 2023-01-08 23:54 | disposition home or self-care (01) ==
PROVIDERS: Emergency Provider Student in an Organized Health Care Education/Training Program; PCP Nurse Practitioner Family
DX: R55 Syncope and collapse (principal); E86.1 Hypovolemia; I10 Essential (primary) hypertension; R73.03 Prediabetes
CPT/HCPCS: 36416; 80053; 82962; 93005; 96360; 96361; 99284; 70450; 81003; 83735; 84443; 84484; 85025; 85379; 93010

== ENCOUNTER 2023-01-16 19:12 | Outpatient (REF) | payer MEDICAID, SELFPAY ==
[2023-01-16 19:31] LABS: Abs Immature Grans 0.04 10^3/uL (0.0-0.06); Absolute Basophil Count 0.05 10^3/uL (0.0-0.2); Absolute Eosinophil Count 0.24 10^3/uL (0.0-0.7); Absolute Lymphocyte Count 2.35 10^3/uL (1.2-3.4); Absolute Monocyte Count 0.86 10^3/uL (0.1-0.8); Basophils % 0.5; Eosinophils % 2.4; HCT 41.2 % (40.0-50.0); HGB 14.1 g/dL (13.5-17.5); Immature Grans % 0.4; Lymphocytes % 23.6; MCH 28.5 pg (27.0-33.0); MCHC 34.2 % (32.0-36.0); MCV 83 fL (80-95); MPV 10.8 fL (8.0-11.0); Monocytes % 8.7; Neutrophils % 64.4; Platelet Count 251 10^3/uL (130-400); RBC 4.94 10^6/uL (4.36-5.78); RDW 13.7 % (11.8-14.1); RDW-SD 41.9 fL; WBC 9.94 10^3/uL (4.4-10.8)
[2023-01-16 19:47] LABS: Anion Gap 8.5 mmol/L (3-11); BUN 6 mg/dL (7-18); CO2 29.5 mmol/L (21.0-32.0); CREATININE 0.7 mg/dL (0.70-1.30); Calcium 9.1 mg/dL (8.5-10.1); Chloride 104 mmol/L (98-107); Estimated GFR 107.47 (mL/min/1.73m2); Glucose 131 mg/dL (74-106); Potassium 3.6 mmol/L (3.5-5.1); Sodium 142 mmol/L (136-145)
== END 2023-01-16 19:13 | disposition home or self-care (01) ==
LOC: NCHCN 19:12
PROVIDERS: PCP Nurse Practitioner Family; Visit Provider Nurse Practitioner Family
DX: D72.829 Elevated white blood cell count, unspecified (principal); R55 Syncope and collapse; E87.6 Hypokalemia
CPT/HCPCS: 80048; 83735; 85025

== ENCOUNTER 2023-05-07 06:19 | Emergency (ER) | payer BC, SELFPAY ==
--- NOTE | 2023-05-07 06:15 | DI.RAD_ITS ---
Exam(s) XR HIP LT COMPLETE AP PELVIS EXAM: XR HIP LT COMPLETE AP PELVIS CLINICAL HISTORY: LEFT HIP PAIN. TECHNIQUE: 2D digital imaging was performed. COMPARISON: No exams were available for comparison FINDINGS: 3 views There is no evidence of pelvic nor hip fracture. Additional views of the left hip reveal minimal jose nt space narrowing. No osteophytes. Appearance of the right hip is similar. No osseous lesions. S I joints unremarkable. IMPRESSION: No acute osseous findings in the pelvis and hips. DATA REPOSITORY: RADIATION DOSE DELIVERED:
[2023-05-07 06:24] VITALS: BP 173/120; PULSE 92; RESP 18; TEMP 36.6; O2SAT 94
--- NOTE | 2023-05-07 06:26 | ED.GENADUL_ITS ---
Discharge Plan Disposition Patient Disposition: Home Condition: Good Discharge Details Clinical Impression: Acute pain of left hip Primary Care Provider: Lizette Greene ED Provider: Shaquille Yap Home Meds and New Rx's Prescriptions: No Action tramadol 50 mg tablet 50 mg PO Q8H PRN (Reason: pain) Qty: 30 0RF gabapentin 300 mg capsule 300 mg PO HS PRN Lac-Hydrin Five 5 % lotion 1 applic topical BID PRN pramipexole 0.5 mg tablet 0.5 mg PO .QHS Patient Comments: TAKE 1 TO 1 AND 1/2 TABLETS BY MOUTH NIGHTLY Trulicity 0.75 mg/0.5 mL pen injector 0.75 mg SUBCUT Patient Comments: INJECT 1 PEN UNDER THE SKIN ONCE WEEKLY chlorthalidone 50 mg tablet 50 mg PO DAILY Patient Comments: TAKE ONE TABLET BY MOUTH EVERY DAY DISCONTINUE HCTZ amlodipine 10 mg tablet 5 mg PO DAILY Patient Comments: TAKE ONE TABLET BY MOUTH EVERY DAY lisinopril 40 mg tablet 40 mg PO DAILY Patient Comments: TAKE ONE TABLET BY MOUTH EVERY DAY ibuprofen 800 mg tablet 800 mg PO Q8H PRN tamsulosin 0.4 mg capsule 0.4 mg PO QHS Qty: 14 0RF Discharge Instructions Instructions: Hip Pain (ED) Additional Instructions: X-ray is negative today. Treat your pain with Tylenol every 4 hours. Follow-up with your primary care for evaluation in a few days if your pain is persistent or worsening. You may need additional imaging to further evaluate the hip. Medical Decision Making Emergent evaluation of left hip pain. Patient is ambulatory, has tenderness. Had a fall yesterday. Will evaluate for fracture 0750: X-ray negative. As patient is ambulatory, lower suspicion for fracture. Advised continued Ultram that he takes for pain and Tylenol. Recommend follow- up with PCP in a few days if his symptoms do not improve, may need an MRI to further evaluate for fracture Medical Records Medical records reviewed: Yes I reviewed the patient's medical records. HPI General Date/Time Provider Initiated Documentation: 05/07/23 06:25 . Limitations to Documentation: no limitations . Information obtained by: patient . HPI Narrative: 57-year-old gentleman with past medical history of hypertension presents for evaluation of left hip pain. He reports onset yesterday. 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 He fell down toward the ground and landed with all of his weight on his left leg. He reports pain in the front of his left hip. He is able to walk but reports that the pain is worse with walking. Denies any pain in his back, denies any numbness or tingling. Related Data Home Medications Medication Instructions Recorded Confirmed gabapentin 300 mg capsule 300 mg PO HS PRN 04/21/19 01/08/23 amlodipine 10 mg tablet 5 mg PO DAILY 03/22/21 05/07/23 chlorthalidone 50 mg tablet 50 mg PO DAILY 03/22/21 01/08/23 ibuprofen 800 mg tablet 800 mg PO Q8H PRN 03/22/21 05/07/23 lisinopril 40 mg tablet 40 mg PO DAILY 03/22/21 05/07/23 tamsulosin 0.4 mg capsule 0.4 mg PO QHS #14 caps 03/22/21 01/08/23 tramadol 50 mg tablet 50 mg PO Q8H PRN pain #30 tabs 05/15/21 05/07/23 dulaglutide 0.75 mg/0.5 mL 0.75 mg subcut 01/08/23 [facility] pramipexole 0.5 mg tablet 0.5 mg PO .QHS 01/08/23 05/07/23 ammonium lactate 5 % lotion 1 applic topical BID PRN 01/17/23 (Lac-Hydrin Five) Previous Rx's Medication Instructions Recorded tamsulosin 0.4 mg capsule 0.4 mg PO QHS #14 caps 03/22/21 tramadol 50 mg tablet 50 mg PO Q8H PRN pain #30 tabs 05/15/21 Allergies Allergy/AdvReac Type Severity Reaction Status Date / Time pregabalin [From Lyrica] Allergy Verified 05/07/23 06:30 General RICHARD: 2 PFSH All Active Problems (Updated 05/07/23 @ 07:47 by Shaquille Yap MD) Acute pain of left hip (Acute) Right renal stone (Acute) Left ureteral stone (Acute) Hypokalemia (Acute) DVT prophylaxis (Acute) Lumbar disc herniation with radiculopathy (Acute) Fever, unknown origin (Acute) HTN (hypertension) (Chronic) Hypoxia, sleep related (Acute) Discharge planning issues (Acute) Radiculitis (Acute) Diverticulosis (Acute) Medical History Joint pain Subjective tinnitus Low back pain Sleep disturbance Medication management Hyperlipidemia Fatigue Diverticulitis of colon with perforation Numbness of hand Renal calculus, left Elbow pain Buttock pain Skin lesions Microalbuminuria Elevated liver enzymes Tinnitus, bilateral RLS (restless legs syndrome) Vertigo Surgical History Previous back surgery History of colonoscopy 01/29/19 Family History Brother Heart disease Social History Smoking/Tobacco Use Status: Never Smoking risk assessment performed?: Yes Alcohol Intake: current Alcohol Intake frequency: holidays/special occasions only Drug use: Daily Substance use type: marijuana Details: 1 joint per day Do you feel safe at home: Yes Do you feel safe in your relationship?: Yes Exam Narrative Exam Narrative: Review of Systems: All systems reviewed & are unremarkable except as noted in HPI and below Well-developed, no acute distress NACT PERRL, normal conjunctiva RRR Unlabored respiratory effort Nondistended abdomen No midline back tenderness, step-off or deformity, pelvis stable Tenderness of the left lateral hip Extremities w/o deformity, no cyanosis, no edema No rashes or lesions. no focal neurologic deficits Appropriate mood and affect
--- NOTE | 2023-05-07 07:45 | DI.VRAD_ITS ---
PROCEDURE INFORMATION: Exam: XR Left Hip Exam date and time: 05/07/2023 6:40 AM Age: 57 years old Clinical indication: Injury or trauma; Fall; Work related; Blunt trauma (contusions or hematomas); Left; Injury date: 05/06/23; Injury details: Slipped, hip pain TECHNIQUE: Imaging protocol: Radiologic exam of the left hip. Views: 2 or 3 views hip with pelvis when performed. COMPARISON: CT ABDOMEN PELVIS W 03/22/2021 1:17 AM FINDINGS: Bones/joints: No fracture is identified in the left hip or elsewhere in the pelvis. Left hip alignment is anatomic. 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 The pubic symphysis is unremarkable. The sacroiliac joints are symmetric and unremarkable in appearance. Soft tissues: Regional soft tissues are unremarkable. IMPRESSION: No fracture or malalignment in the left hip. Dictated and Authenticated by: Anny Wells MD. Ordering:RICHARD Mcdonough MD
== END 2023-05-07 07:52 | disposition home or self-care (01) ==
PROVIDERS: Emergency Provider Emergency Medicine; PCP Nurse Practitioner Family
DX: M25.552 Pain in left hip (principal); I10 Essential (primary) hypertension; V85.4XXA Person injured while boarding or alighting from special construction vehicle, initial encounter; Z79.899 Other long term (current) drug therapy
CPT/HCPCS: 99283; 73502

== ENCOUNTER 2023-05-08 14:22 | Outpatient (REF) | payer BC, SELFPAY ==
[2023-05-08 16:38] LABS: COMMENT (LAB VIEW ONLY) 142.93 mg/dL; Microalb ug/mg Crea 61.3 ug/mg Cr
== END 2023-05-08 14:23 | disposition home or self-care (01) ==
LOC: NCHCN 14:22
PROVIDERS: PCP Nurse Practitioner Family; Visit Provider Nurse Practitioner Family
DX: R80.9 Proteinuria, unspecified (principal)
CPT/HCPCS: 82043; 82570

== ENCOUNTER 2023-08-21 17:53 | Outpatient (REF) | payer MEDICAID, SELFPAY ==
[2023-08-21 19:28] LABS: Abs Immature Grans 0.05 10^3/uL (0.0-0.06); Absolute Basophil Count 0.06 10^3/uL (0.0-0.2); Absolute Eosinophil Count 0.34 10^3/uL (0.0-0.7); Absolute Lymphocyte Count 2.39 10^3/uL (1.2-3.4); Absolute Monocyte Count 0.91 10^3/uL (0.1-0.8); Absolute Neutrophil Count 5.81 10^3/uL (1.2-6.7); Basophils % 0.6; Eosinophils % 3.6; HCT 43.8 % (40.0-50.0); HGB 14.9 g/dL (13.5-17.5); Immature Grans % 0.5; MCH 28.4 pg (27.0-33.0); MCV 83 fL (80-95); MPV 10.5 fL (8.0-11.0); Monocytes % 9.5; Neutrophils % 60.8; Platelet Count 247 10^3/uL (130-400); RBC 5.25 10^6/uL (4.36-5.78); RDW 13.4 % (11.8-14.1); RDW-SD 41.2 fL; WBC 9.56 10^3/uL (4.4-10.8)
[2023-08-21 19:55] LABS: Hemoglobin A1C 6.4 % (<5.7)
[2023-08-21 20:00] LABS: ALT 46 U/L (16-63); AST 30 U/L (15-37); Albumin 3.7 g/dL (3.4-5.0); Alkaline Phosphatase 58 U/L (46-116); Anion Gap 9.3 mmol/L (3-11); BUN 12 mg/dL (7-18); Bilirubin, Total 0.4 mg/dL (0.2-1.0); CO2 28.7 mmol/L (21.0-32.0); CREATININE 0.7 mg/dL (0.70-1.30); Calcium 8.6 mg/dL (8.5-10.1); Calculated LDL 135 mg/dL (<100); Chloride 104 mmol/L (98-107); Cholesterol 212 mg/dL (<200); Ferritin 152 ng/mL (26-388); Glucose 108 mg/dL (74-106); HDL Cholesterol 45 mg/dL (40-60); Magnesium 1.8 mg/dL (1.8-2.4); Potassium 3.7 mmol/L (3.5-5.1); Sodium 142 mmol/L (136-145); Total Protein 8.1 g/dL (6.4-8.2); Triglyceride 160 mg/dL (<150)
== END 2023-08-21 17:54 | disposition home or self-care (01) ==
LOC: NCHCN 17:53
PROVIDERS: PCP Nurse Practitioner Family; Visit Provider Nurse Practitioner Family
DX: E11.9 Type 2 diabetes mellitus without complications (principal); E78.5 Hyperlipidemia, unspecified; G25.81 Restless legs syndrome
CPT/HCPCS: 80053; 80061; 82728; 83036; 83735; 85025

== ENCOUNTER 2024-09-20 15:16 | Outpatient (REF) | payer SELFPAY ==
[2024-09-20 15:45] LABS: Hemoglobin A1C 8.6 % (<5.7)
[2024-09-20 15:53] LABS: ALT 78 U/L (16-63); AST 44 U/L (15-37); Albumin 3.6 g/dL (3.4-5.0); Alkaline Phosphatase 74 U/L (46-116); Anion Gap 6.3 mmol/L (3-11); BUN 10 mg/dL (7-18); Bilirubin, Total 0.4 mg/dL (0.2-1.0); CO2 31.7 mmol/L (21.0-32.0); CREATININE 0.8 mg/dL (0.70-1.30); Calcium 9.1 mg/dL (8.5-10.1); Calculated LDL 99 mg/dL (<100); Chloride 101 mmol/L (98-107); Cholesterol 176 mg/dL (<200); Estimated GFR 101.95 (mL/min/1.73m2); Glucose 235 mg/dL (74-106); HDL Cholesterol 53 mg/dL (>or=40); Potassium 3.7 mmol/L (3.5-5.1); Sodium 139 mmol/L (136-145); Total Protein 7.5 g/dL (6.4-8.2); Triglyceride 121 mg/dL (<150)
[2024-09-20 16:16] LABS: COMMENT (LAB VIEW ONLY) 66.73 mg/dL
== END 2024-09-20 15:17 | disposition home or self-care (01) ==
LOC: NCHCN 15:16
PROVIDERS: PCP Nurse Practitioner Family; Visit Provider Nurse Practitioner Family
DX: I10 Essential (primary) hypertension (principal); E78.5 Hyperlipidemia, unspecified; E11.9 Type 2 diabetes mellitus without complications
CPT/HCPCS: 80053; 80061; 82043; 82570; 83036

== ENCOUNTER 2024-10-21 02:27 | Outpatient (CLI) | payer OTHER, SELFPAY ==
--- NOTE | 2024-10-21 14:55 | DI.RAD_ITS ---
Exam(s) XR KNEE LT 3V AP,LAT,DARYL EXAM: XR KNEE LT 3V AP,LAT,DARYL CLINICAL HISTORY: Acute pain of lt knee, M25.562. TECHNIQUE: 2D digital imaging was performed. Three views. COMPARISON: No exams were available for comparison FINDINGS: BONES: No acute fracture is present. No bony destructive lesion is seen. JOINTS: Moderate narrowing of the medial femoral tibial joint space and mild periarticular spurring. Mild varus angulation. Mild spurring at the articular aspect of patella and lateral femoral tibial joint. No joint effusion is seen. SOFT TISSUE: Normal. IMPRESSION: Moderate degenerative changes of the medial femoral tibial joint. DATA REPOSITORY: RADIATION DOSE DELIVERED:
== END 2024-10-21 02:47 ==
LOC: DI 02:27
PROVIDERS: PCP Nurse Practitioner Family; Visit Provider Nurse Practitioner Family
DX: M17.12 Unilateral primary osteoarthritis, left knee (principal)
CPT/HCPCS: 73562

== ENCOUNTER 2024-11-23 09:21 | Observation (INO) | payer OTHER, SELFPAY ==
[2024-11-23] VITALS (53 sets, daily range): BP systolic 126–183; BP diastolic 79–153; PULSE 76–101; RESP 1–93; TEMP 36.3–36.9; O2SAT 77–98
--- NOTE | 2024-11-23 09:23 | W.ED.GENAD ---
Discharge Plan Disposition Patient Disposition: Admit to [facility] Discharge Details Clinical Impression: Ureteritis, Nausea & vomiting, Acute generalized abdominal pain Primary Care Provider: Lizette Greene ED Provider: Mayo Hoffman [place] Meds and New Rx's Prescriptions: New methylprednisolone [Medrol] 16 mg tablet 16 mg PO Q OTHER DAY Qty: 5 0RF Rx Instructions: Please provide Medrol Dosepak Continued tramadol 50 mg tablet 50 mg PO Q8H PRN (Reason: pain) Qty: 30 0RF ropinirole 0.5 mg tablet 0.5 mg PO QHS Rx Instructions: administer 1-3 hours before bedtime rosuvastatin 5 mg tablet 5 mg PO DAILY Trulicity 0.75 mg/0.5 mL pen injector 1.5 mg subcut QWEEK Patient Comments: just increased 3 weeks ago hydrochlorothiazide 25 mg tablet 25 mg PO DAILY Lac-Hydrin Five 5 % lotion 1 applic topical BID PRN amlodipine 10 mg tablet 5 mg PO DAILY Patient Comments: TAKE ONE TABLET BY MOUTH EVERY DAY lisinopril 40 mg tablet 40 mg PO DAILY Patient Comments: TAKE ONE TABLET BY MOUTH EVERY DAY tamsulosin 0.4 mg capsule 0.4 mg PO QHS Qty: 14 0RF Held ibuprofen 800 mg tablet 800 mg PO Q8H PRN Hold Instructions: Resume on 11/28/24. Please hold while taking steroids HPI General Date/Time Provider Initiated Documentation: 11/23/24 09:23. HPI Narrative: MDM Broad differential of abdominal pain in this uncomfortable appearing normothermic and not tachycardic 59-year-old male. Patient does have a history of ureterolithiasis in the past. He says that his pain was initially right-sided so ureterolithiasis is certainly a possibility. Given elevated BMI pancreatitis is also in the differential. No chest pain to suggest ACS. No rash to abdomen to suggest zoster. No dysuria no frequency to suggest abscess. Patient does have some right lower quadrant tenderness making appendicitis possible. Diverticulitis is also on the differential given the left lower quadrant tenderness. Patient is not an extremis nor is he markedly hypotensive so my suspicion is low for ruptured AAA. No shortness of breath to suggest PE. No chest pain to suggest esophageal rupture. Patient is not tachycardic and not hypoxic so my suspicion is low for referred for over a PE. It could be possible that the patient's dulaglutide could be causing his nausea and vomiting though this medication can also cause acute pancreatitis. Patient does have a slightly elevated blood pressure but he reports not being able to take his antihypertensive medications. It would be unlikely for the patient to have a pheochromocytoma though he does endorse a slight headache. 11 AM Comprehensive metabolic panel with no acute electrolyte abnormalities. Mildly ALT and AST similar to prior. CBC lacks anemia cytopenia leukocytosis. Lipase normal. 12:40 PM I spoke to Dr. Peguero from the urology who requested laboratory markers. He advised that if the patient's pain was tolerable that he could be discharged and follow-up in the urology clinic after treatment with an outpatient Medrol Dosepak. 1:40 PM Patient had received second dose of ondansetron but was still having nausea. I ordered metoclopramide. He did developed chest pain which was brief and resolved and described as a tightness. No history of coronary artery disease. He has hypertension hyperlipidemia. He had a nonischemic ECG. Will add on troponin tests. Anticipate that if the patient has persistent symptoms that he will require hospitalization for symptom management. 2:24 PM Patient still nauseous. He is able to tolerate some of his popsicle but he is having recurrent abdominal pain pain. Given the difficulty in managing his symptoms I am concerned about his ability to succeed as an outpatient. As result I reached out to the hospitalist with request for hospitalization.Given that patient will be hospitalized we will treat with dexamethasone IV which may also serve to improve his nausea. 2:45PM I was in [facility] with Dr. Owen who graciously agreed to accept the patient for hospitalization. HPI This is a patient with a history of diverticulitis presenting with nausea and vomiting. History provided by the patient. The patient began experiencing nausea and vomiting on the morning of 11/21/2024, which was sudden in onset. The patient was in [place] for a getaway and consumed a salad on the night of 11/20/2024, which was the only dietary difference from his . Since then, the patient has been unable to tolerate food, with the last successful intake being on 11/20/2024. The patient attempted to consume crackers and elijah dipak without success. The patient reports a small bowel movement today, which was normal but not a lot. The patient has no history of abdominal surgeries. The patient describes the abdominal pain as generalized and believes it is due to retching, with the pain also radiating to the back. The patient recalls a similar pain during a previous episode of diverticulitis but notes that the current pain is less intense. The patient also reports a headache, which is attributed to not taking blood pressure medication. The patient has lost weight since 11/20/2024. The patient reports no chest pain, trouble breathing, or burning during urination. The patient does not consume alcohol daily. The patient has not taken any new medications recently. The patient attempted to take pain medication on 11/21/2024 but was unable to keep it down and has not tried since. The patient experienced some pain on 11/22/2024 while returning home, which lasted for 1 to 2 hours, and was in the car for 7 hours. The patient has a history of kidney stones but does not believe the current symptoms are related. The patient is currently on tramadol for back pain, taking 1 tablet in the morning and 2 at night. The patient underwent a colonoscopy several years ago, which did not raise any concerns. Exam General: Well-appearing in no acute distress speaking in complete sentences. Head: Normocephalic, atraumatic. Eye: Extraocular eye movements intact. No conjunctival injection. No scleral icterus. Ear, nose, mouth, throat: Grossly normal inspection. Normal voice, handling secretions normally. Neck: Trachea midline. Cardiovascular: Well-perfused distal extremities. Respiratory: Nonlabored respiration. Clear lungs bilaterally Gastrointestinal: Nondistended abdomen. Soft. Generalized abdominal tenderness. No rebound. No guarding. Musculoskeletal: No edema. Moving all 4 extremities spontaneously. Skin: Normal for age and race, grossly normal temperature and turgor. No acute rash. Neurologic: Alert and appropriate, no apparent acute deficits. Related Data Home Medications ?Medication ?Instructions ?Recorded ?Confirmed amlodipine 10 mg tablet 5 mg PO DAILY 03/22/21 11/23/24 ibuprofen 800 mg tablet 800 mg PO Q8H PRN 03/22/21 11/23/24 Held on 11/23/24. Instructions: Resume on 11/28/24. Please hold while taking steroids lisinopril 40 mg tablet 40 mg PO DAILY 03/22/21 11/23/24 tamsulosin 0.4 mg capsule 0.4 mg PO QHS #14 caps 03/22/21 11/23/24 tramadol 50 mg tablet 50 mg PO Q8H PRN pain #30 tabs 05/15/21 11/23/24 ammonium lactate 5 % lotion 1 applic topical BID PRN 01/17/23 11/23/24 (Lac-Hydrin Five) dulaglutide 0.75 mg/0.5 mL 1.5 mg subcut QWEEK 11/02/24 11/23/24 subcutaneous pen injector (Trulicity) hydrochlorothiazide 25 mg tablet 25 mg PO DAILY 11/02/24 11/23/24 ropinirole 0.5 mg tablet 0.5 mg PO QHS 11/02/24 11/23/24 rosuvastatin 5 mg tablet 5 mg PO DAILY 11/02/24 11/23/24 methylprednisolone 16 mg tablet 16 mg PO Q OTHER DAY #5 tabs 11/23/24 (Medrol) Previous Rx's ?Medication ?Instructions ?Recorded tamsulosin 0.4 mg capsule 0.4 mg PO QHS #14 caps 03/22/21 tramadol 50 mg tablet 50 mg PO Q8H PRN pain #30 tabs 05/15/21 methylprednisolone 16 mg tablet 16 mg PO Q OTHER DAY #5 tabs 11/23/24 (Medrol) Allergies Allergy/AdvReac Type Severity Reaction Status Date / Time pregabalin (From Lyrica) Allergy Intermediate Other (See Verified 11/23/24 09:25 Comment) General RICHARD: 2 PFSH All Active Problems (Updated 11/23/24 @ 15:25 by Mayo Hoffman MD) Acute generalized abdominal pain (Acute) Nausea & vomiting (Acute) Ureteritis (Acute) Right renal stone (Acute) Left ureteral stone (Acute) Hypokalemia (Acute) DVT prophylaxis (Acute) Lumbar disc herniation with radiculopathy (Acute) Fever, unknown origin (Acute) HTN (hypertension) (Chronic) Hypoxia, sleep related (Acute) Discharge planning issues (Acute) Radiculitis (Acute) Diverticulosis (Acute) Medical History Joint pain Subjective tinnitus Low back pain Sleep disturbance Medication management Hyperlipidemia Fatigue Diverticulitis of colon with perforation Numbness of hand Renal calculus, left Elbow pain Buttock pain Skin lesions Microalbuminuria Elevated liver enzymes Tinnitus, bilateral RLS (restless legs syndrome) Vertigo Surgical History Previous back surgery History of colonoscopy 01/29/19 Family History Brother Heart disease Social History Smoking/Tobacco Use Status: Never Smoking risk assessment performed?: Yes Alcohol Intake: current Alcohol Intake frequency: holidays/special occasions only Drug use: Daily Substance use type: marijuana Details: 1 joint per day Housing: house Do you feel safe at home: Yes Do you feel safe in your relationship?: Yes
--- NOTE | 2024-11-23 09:45 | DI.CT_ITS ---
Exam(s) CT ABDOMEN PELVIS W EXAM: CT ABDOMEN PELVIS W CLINICAL HISTORY: Generalized abdominal pain. TECHNIQUE: Imaging Protocol: Axial computed tomography images with coronal and sagittal reformatted images were created and reviewed CONTRAST MATERIAL: Intravenous: Omnipaque 350 Contrast volume:100 ml Oral: no COMPARISON: CT CT ABDOMEN PELVIS W from 03/22/2021 FINDINGS: ABDOMEN and PELVIS: Lung Bases: No acute findings. Liver: Mild hepatic steatosis. Stable over cyst left lobe. No suspicious mass. Gallbladder and biliary tract: No radiodense calculus. No wall thickening or pericholecystic fluid. No biliary dilation. Pancreas: Normal density. No abnormal calcifications or inflammatory process. No evidence of mass. Spleen: Normal. Kidneys: Normal size, contour and axis. Homogeneous perfusion. No evidence of pyelonephritis or infarct. Small stones are again noted at the upper and mid poles of the left kidney. No ureteral or bladder calculi are identified stable small bilateral renal cysts. No suspicious masses seen. There is abnormal wall thickening of the right renal pelvis and right ureter with significant surrounding stranding. There is also mild thickening of the wall of the left renal pelvis with more significant thickening and stranding distally. Findings are consistent with ureteritis. Findings could also be secondary to recent instrumentation. No abnormal air collections. Adrenal glands: No masses seen. Vasculature: Abdominal aorta non-dilated. Soft tissues: Unremarkable. Bladder: No gross wall thickening. No calculi.No focal mass. Bowel: Mild diverticulosis of the descending colon. No evidence of diverticulitis. No obstruction. No bowel wall thickening. Appendix normal. Peritoneal cavity: No ascites. No focal collection. No mesenteric inflammatory response. No free air. Bones: Unremarkable for age. Reproductive organs: Unremarkable. Lymph nodes: No pathologically enlarged lymph nodes. IMPRESSION:: Urothelial wall thickening enhancement with cysts stranding surrounding the ureters, consistent with ureteritis. No ureteral calculi or bladder wall thickening. Small nonobstructing stones are present in the left kidney. The findings were called to Dr. Hoffman of the emergency department. RADIATION DOSE DELIVERED: 1,285.97mGy.cm Total DLP DATA REPOSITORY: All CT scans at this facility are submitted to the National Radiology Data Registry (NRDR) Dose Index Registry (DIR) with the [employer] ([employer]). RADIATION OPTIMIZATION: All CT scans at this facility use at least one of these dose optimization techniques: automated exposure control; mA and/or kV adjustment per patient size (includes targeted exams where dose is matched to clinical indication); or iterative reconstruction.
[2024-11-23] MEDS: fentaNYL 100 MCG/2 ML VIAL 75 MCG IVP (10:31)
[2024-11-23] MEDS: Normal Saline 1,000 ML 1000 ML IV (10:32)
[2024-11-23] MEDS: Ondansetron 4 MG/2 ML VIAL IVP ×2 (10:32→12:43)
[2024-11-23 10:33] LABS: Abs Immature Grans 0.04 10^3/uL (0.0-0.06); Absolute Basophil Count 0.04 10^3/uL (0.0-0.2); Absolute Monocyte Count 0.88 10^3/uL (0.1-0.8); Absolute Neutrophil Count 7.76 10^3/uL (1.2-6.7); Basophils % 0.4 %; HCT 46.2 % (40.0-50.0); HGB 15.7 g/dL (13.5-17.5); Immature Grans % 0.4 %; Lymphocytes % 16.2 %; MCH 27.6 pg (27.0-33.0); MCV 81 fL (80-95); MPV 9.2 fL (8.0-11.0); Monocytes % 8.4 %; Neutrophils % 73.6 %; Platelet Count 253 10^3/uL (130-400); RBC 5.69 10^6/uL (4.36-5.78); WBC 10.52 10^3/uL (4.4-10.8)
[2024-11-23 11:00] LABS: ALT 71 U/L (16-63); AST 46 U/L (15-37); Albumin 3.7 g/dL (3.4-5.0); Alkaline Phosphatase 63 U/L (46-116); Anion Gap 9.6 mmol/L (3-11); BUN 15 mg/dL (7-18); Bilirubin, Total 0.8 mg/dL (0.2-1.0); CO2 30.4 mmol/L (21.0-32.0); CREATININE 0.8 mg/dL (0.70-1.30); Calcium 9.6 mg/dL (8.5-10.1); Chloride 99 mmol/L (98-107); Estimated GFR 101.95 (mL/min/1.73m2); Glucose 172 mg/dL (74-106); Lipase 26 U/L (<78); Potassium 3.5 mmol/L (3.5-5.1); Sodium 139 mmol/L (136-145); Total Protein 8.2 g/dL (6.4-8.2)
[2024-11-23] MEDS: Omnipaque 350 MG/ML 100 ML BTL IJ (11:23)
[2024-11-23] MEDS: Normal Saline - Diluent 50 ML VIAL IJ (11:23)
[2024-11-23 12:22] LABS: Bilirubin Negative (Negative); Blood Small (Negative); Clarity Clear (Clear); Glucose Negative (Negative); Ketones Trace mg/dL (Negative); Leukocyte Esterase Negative (Negative); Nitrite Negative (Negative)
[2024-11-23 12:33] LABS: Bacteria Negative HPF (Negative); Crystals Negative HPF (Negative); Epithelial Cells Rare HPF (Negative); RBC 0-2 HPF (0-2); WBC 0-2 HPF (0-5)
[2024-11-23 12:34] LABS: C & S Indicated? No; Casts Negative LPF (Negative); Mucus Trace (Negative)
[2024-11-23 12:59] LABS: Lab Add On Test DONE
[2024-11-23 13:11] LABS: ESR 29 mm/hr (0-20)
[2024-11-23 13:15] LABS: C-Reactive Protein 0.85 mg/dL (<or=0.5)
--- NOTE | 2024-11-23 13:15 | RT.EKG_ITS ---
APPROVED REPORT Exam: Resting ECG Reason for Exam: Chest pain Patient Location: E HR:82 bpm ECG Measurements Heart Rate 82 AXIS IA 156 P 67 QRSd 91 QRS -51 QT 384 T 46 QTc 448 Conclusion Sinus rhythm...normal P axis, V-rate 60- 99 Inferior infarct, old...Q >35mS, II III aVF No Occlusion MO
[2024-11-23] MEDS: Ketorolac 15 MG/ML VIAL IVP (13:21)
[2024-11-23] MEDS: METOCLOPRAMIDE 10 MG in Normal Saline 50 ML 200 MG IVPB (13:22)
--- NOTE | 2024-11-23 13:27 | NUR.NOTE ---
Patient reported sudden chest pain lasting less than 1 minute that went away. MD informed and EKG ordered
[2024-11-23 13:40] LABS: Lab Add On Test DONE
[2024-11-23 14:07] LABS: Troponin I 13 ng/L (<or=76)
[2024-11-23 14:13] LABS: Troponin I 11 ng/L (<or=76)
[2024-11-23] MEDS: Dexamethasone 4 MG/ML VIAL 8 MG IVP (14:46)
[2024-11-23 15:18] LABS: Troponin I 13 ng/L (<or=76)
--- NOTE | 2024-11-23 15:41 | W.PM.HP.N ---
Date of service: 11/23/24 Time of Service: 15:41 Assessment and Plan Assessment and plan (1) Ureteritis: Status: Acute Assessment and plan: Inflammation around ureters without stone or obstruction noted on CT, with severe pain despite IV therapy with ketoralac, fentanyl. Admit for symptom control Dr. Peguero consulted in ED. Recommended steroids, no other specific intervention at this point. U/a not c/w infection. No hydro. May have been passed stones. (2) Nausea & vomiting: Status: Acute Assessment and plan: Given ondansatron, metoclopramide, but not taking adequate oral intake. Admit with IV fluids, antiemetics. (3) HTN (hypertension): Status: Chronic Assessment and plan: continue outpatient medication (4) Elevated liver enzymes: Assessment and plan: intermittenly elevated in the past. CT benign. At risk for MASLD given BMI at DM. Had had negative hep screens (5) Type 2 diabetes mellitus: Status: Acute Assessment and plan: Last A1c not well controlled at 8.6% Hold GLP-1 with nausea/vomiting ISS, use basal insulin with corticosteroid therapy (6) RLS (restless legs syndrome): Assessment and plan: continue home ropinerole monitor for worse symptoms due to antiemetic use. (7) Class 3 obesity: (8) DVT prophylaxis: Status: Acute Assessment and plan: enoxaparin (9) Discharge planning issues: Status: Acute Assessment and plan: He could go home 11/24 if pain and vomiting controlled. History of Present Illness History of Present Illness Chief Complaint: abdominal pain, vomiting Narrative: 59 yo M with history of nephrolithiasis, type 2 DM, HTN, BMI 46, h/o diverticulitis, and low back pain a/w lumbar disc disease who presented to the ED this morning with acute onset abdominal pain and vomiting. Started Friday, was on vacation in [place], woke up in hotel room about 7am with nausea. He had not eaten breakfast or taken anything by mouth. He proceded to vomit and abdominal pain started. Diffuse dull pain like he was hit in the gut, severe. It was radiating to the right low back yesterday, but no longer. Worse after vomiting/wretching. Never radiated to the groin/testicles. No dysuria or hematuria. No change in pain after urination. He had one small stool yesterday, which did not change pain. No cough or SOB or chest pain. No fever/chill. No sore throat or URI symtpoms. He hasn't eaten since this started 2 days ago. Last sex a few days prior, no pain or hematospermia. No change in partner. No recent alcohol. He was traveling, but not sick with what they ate. He has not had blood in vomit or coffee grounds or bright yellow/green. He did increase his GLP-1 dose 3 weeks ago. The injection does cause a little nausea. His last dose was 9 days ago, one week before the symptoms started. He wasn't able to keep fluids down, but now taking some sips in the ED, but pain persisted despite IV therapy, ongoing wretching. Admission for symptom management requested Review of Systems All systems reviewed & are unremarkable except as noted in HPI and below Constitutional Constitutional: Denies chills and Denies fever(s) Cardiovascular Comments: breif chest discomfort when IV contrast given, has resolved. Musculoskeletal Comments: chronic low back pain PFSH All Active Problems Type 2 diabetes mellitus (Acute) Acute generalized abdominal pain (Acute) Nausea & vomiting (Acute) Ureteritis (Acute) Right renal stone (Acute) Hypokalemia (Acute) Left ureteral stone (Acute) DVT prophylaxis (Acute) Lumbar disc herniation with radiculopathy (Acute) Fever, unknown origin (Acute) Hypoxia, sleep related (Acute) Discharge planning issues (Acute) Radiculitis (Acute) Diverticulosis (Acute) HTN (hypertension) (Chronic) Medical History Class 3 obesity Joint pain Subjective tinnitus Low back pain Sleep disturbance Medication management Hyperlipidemia Fatigue Diverticulitis of colon with perforation Numbness of hand Renal calculus, left Elbow pain Buttock pain Skin lesions Microalbuminuria Elevated liver enzymes Tinnitus, bilateral RLS (restless legs syndrome) Vertigo Surgical History Previous back surgery History of colonoscopy 01/29/19 Family History Brother Heart disease Social History (Updated 11/23/24 @ 17:12 by Mayo Owen) Smoking/Tobacco Use Status: Never Smoking risk assessment performed?: Yes Alcohol Intake: current Alcohol Intake frequency: holidays/special occasions only Drug use: Daily Substance use type: marijuana Details: 1 joint per day Housing: house Sexually active: Yes (single female partner x 30+ years) Do you think of yourself as: straight/heterosexual Current gender identity: male Do you feel safe at home: Yes Do you feel safe in your relationship?: Yes Additional Social history: Grew up in [place], [place]. 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 Meds Allergies and Home Medications Allergies Allergy/AdvReac Type Severity Reaction Status Date / Time pregabalin (From Lyrica) Allergy Intermediate Other (See Verified 11/23/24 09:25 Comment) Home Medications ?Medication ?Instructions ?Recorded ?Confirmed ?Type amlodipine 10 mg tablet 5 mg PO DAILY 03/22/21 11/23/24 History ibuprofen 800 mg tablet 800 mg PO Q8H PRN 03/22/21 11/23/24 History Held on 11/23/24. Instructions: Resume on 11/28/24. Please hold while taking steroids lisinopril 40 mg tablet 40 mg PO DAILY 03/22/21 11/23/24 History tamsulosin 0.4 mg capsule 0.4 mg PO QHS #14 caps 03/22/21 11/23/24 Rx tramadol 50 mg tablet 50 mg PO Q8H PRN pain #30 tabs 05/15/21 11/23/24 Rx ammonium lactate 5 % lotion 1 applic topical BID PRN 01/17/23 11/23/24 History (Lac-Hydrin Five) dulaglutide 0.75 mg/0.5 mL 1.5 mg subcut QWEEK 11/02/24 11/23/24 History subcutaneous pen injector (Trulicity) hydrochlorothiazide 25 mg tablet 25 mg PO DAILY 11/02/24 11/23/24 History ropinirole 0.5 mg tablet 0.5 mg PO QHS 11/02/24 11/23/24 History rosuvastatin 5 mg tablet 5 mg PO DAILY 11/02/24 11/23/24 History methylprednisolone 16 mg tablet 16 mg PO Q OTHER DAY #5 tabs 11/23/24 Rx (Medrol) Exam Narrative Exam Narrative: GEN: Sleepy but arousable (after fentanyl dose), oriented x 4, pleasant and cooperative, gives linear history. No acute distress at rest, uncomfortable with exam. Obese habitus. HEENT: Head atraumatic. Conjunctiva clear, no icterus. PEERL, EOMI. no rhinorrhea. MMM, OP benign. Neck is supple with no masses or lymphadenopathy, trachea midline LUNGS: CTAB with normal effort CV: RRR with no murmurs, gallops, or rubs. ABD: active bowel sounds, soft, mildly distended, no masses, diffuse mild tenderness, no guarding or rebound. no HSM. EXT: no cyanosis, clubbing. Trace shima ankle edema, not tender MSK: No joint redness or swelling. Mild tenderness to purcussion shima CVAs, but some mild diffuse back tenderness. NEURO: CN 2-12 grossly intact. Normal movement of 4 extremities. Normal speech and coordination. No tremor SKIN: No rashes or open wounds. PSYCH: normal mood and affect, normal thought process Results Imaging Abdomen CT scan report/results: report reviewed CT scan - pelvis: report reviewed (Urothelial wall thickening enhancement with cysts stranding surrounding the ureters, consistent with ureteritis. No ureteral calculi or bladder wall thickening. Small nonobstructing stones are present in the left kidney. ) EKG: report reviewed and image reviewed (NSR, left axis, nl intervals, no acute ischemic changes. 2/3/AVF negative similar to 12/2022 EKG) Labs 11/23/24 10:24 11/23/24 10:24 Labs: Laboratory Results - last 24 hr 11/23/24 11/23/24 11/23/24 10:24 12:08 13:36 WBC 10.52 RBC 5.69 Hgb 15.7 Hct 46.2 MCV 81 MCH 27.6 MCHC 34.0 RDW 14.0 Plt Count 253 MPV 9.2 Immature Gran % 0.4 Neutrophils % 73.6 Lymphocytes % 16.2 Monocytes % 8.4 Eosinophils % 1.0 Basophils % 0.4 Nucleated RBC % 0.0 Absolute Neutrophils 7.76 H Absolute Lymphocytes 1.70 Absolute Monocytes 0.88 H Absolute Eosinophils 0.10 Absolute Basophils 0.04 ESR 29 H Sodium 139 Potassium 3.5 Chloride 99 Carbon Dioxide 30.4 Anion Gap 9.6 BUN 15 Creatinine 0.8 Est GFR (CKD-EPI 2020) 101.95 Glucose 172 H Calcium 9.6 Total Bilirubin 0.8 AST 46 H ALT 71 H Alkaline Phosphatase 63 Troponin I 11 C-Reactive Protein 0.85 H Total Protein 8.2 Albumin 3.7 Lipase 26 Urine Color Yellow Urine Clarity Clear Urine pH 7.0 Ur Specific [place] 1.020 Urine Protein >=300 H Urine Ketones Trace H Urine Blood Small H Urine Nitrite Negative Urine Bilirubin Negative Urine Urobilinogen 1.0 H Ur Leukocyte Esterase Negative Urine RBC 0-2 Urine WBC 0-2 Ur Epithelial Cells Rare Urine Crystals Negative Urine Bacteria Negative Urine Casts Negative Urine Mucus Trace Ur Culture Indicated? No Urine Glucose Negative Add-On Test Request DONE DONE 11/23/24 11/23/24 13:40 14:45 WBC RBC Hgb Hct MCV MCH MCHC RDW Plt Count MPV Immature Gran % Neutrophils % Lymphocytes % Monocytes % Eosinophils % Basophils % Nucleated RBC % Absolute Neutrophils Absolute Lymphocytes Absolute Monocytes Absolute Eosinophils Absolute Basophils ESR Sodium Potassium Chloride Carbon Dioxide Anion Gap BUN Creatinine Est GFR (CKD-EPI 2020) Glucose Calcium Total Bilirubin AST ALT Alkaline Phosphatase Troponin I 13 13 C-Reactive Protein Total Protein Albumin Lipase Urine Color Urine Clarity Urine pH Ur Specific [place] Urine Protein Urine Ketones Urine Blood Urine Nitrite Urine Bilirubin Urine Urobilinogen Ur Leukocyte Esterase Urine RBC Urine WBC Ur Epithelial Cells Urine Crystals Urine Bacteria Urine Casts Urine Mucus Ur Culture Indicated? Urine Glucose Add-On Test Request Last Vital Signs Temp 36.9 C 11/23/24 09:30 Pulse 97 H 11/23/24 09:30 Resp 16 11/23/24 09:30 BP 156/109 H 11/23/24 09:30 Pulse Ox 98 11/23/24 09:30 Time Spent Time spent with Patient: 55-74 minutes Time was spent: preparing to see the patient(eg.review tests), obtaining and/or reviewing separately otained hiistory, ordering medications,tests, procedures, referring, communicating with other health landcare facilitator, indepentently interpreting results, counseling the patient and care coordination
--- NOTE | 2024-11-23 15:42 | W.PC.ACHO ---
Registration Status: REG ER Primary Language: Preferred Language: Persian ED Information & Data Chief Complaint Nausea/Vomit/Diar 11/23/24 09:29 Chief Complaint Nausea/Vomit/Diar 11/23/24 09:27 Triage Note pt with n/v starting 11/23/24 09:27 unable to hold down meds, increase in Trulicity on , VSS, no fever/chills. Medical / Surgical History (Last Reviewed 05/07/23 @ 07:06 by Shaquille Yap MD) Joint pain Subjective tinnitus Low back pain Sleep disturbance Medication management Hyperlipidemia Fatigue Diverticulitis of colon with perforation Numbness of hand Renal calculus, left Elbow pain Buttock pain Skin lesions Microalbuminuria Elevated liver enzymes Tinnitus, bilateral RLS (restless legs syndrome) Vertigo (Last Reviewed 05/07/23 @ 07:06 by Shaquille Yap MD) Previous back surgery History of colonoscopy Most Recent Vital Signs Temperature 36.9 C 11/23/24 09:30 Temperature Source Oral 11/23/24 09:30 Pulse 97 H 11/23/24 09:30 Respiratory Rate 16 11/23/24 09:30 Blood Pressure 156/109 H 11/23/24 09:30 Blood Pressure Position Sitting 11/23/24 09:30 Pulse Oximetry 98 11/23/24 09:30 Oxygen Delivery Method Room Air 11/23/24 09:30 Oxygen Flow Rate 0 11/23/24 09:30 Pain Level 7 11/23/24 13:21 Comment no abd pain, just muscle pain from emesis 11/23/24 09:30 Allergies pregabalin (From Lyrica) Allergy (Intermediate, Verified 11/23/24 09:25) Other (See Comment) bad thoughts Precautions Isolation Standard precaution 11/23/24 09:29 Active Medications Generic Name Dose Route Start Last Admin Trade Name Freq PRN Reason Stop Dose Admin Iohexol 100 ml 11/23/24 11:30 11/23/24 11:23 Omnipaque 350 Mg/Ml 100 Ml Btl IJ 12/23/24 23:59 100 ml DIRECTED VIVIAN Administration Sodium Chloride 50 ml 11/23/24 11:30 11/23/24 11:23 Normal Saline - Diluent 50 Ml Vial IJ 50 ml .FOR DI USE VIVIAN Administration IV IV Catheter Type [Right Saline Lock Antecubital] IV Catheter Gauge [Right 18 Antecubital] Diet Orders Category Date Time Status Diabetes Consistent CHO [DIET] Nutrition 11/23/24 Dinner Active Diagnostics 11/23/24 11/23/24 11/23/24 Range/Units 16:36 14:45 13:40 WBC (4.4-10.8) 10^3/uL RBC (4.36-5.78) 10^6/uL Hgb (13.5-17.5) g/dL Hct (40.0-50.0) % MCV (80-95) fL MCH (27.0-33.0) pg MCHC (32.0-36.0) % RDW (11.8-14.1) % Plt Count (130-400) 10^3/uL MPV (8.0-11.0) fL Immature Gran % % Neutrophils % % Lymphocytes % % Monocytes % % Eosinophils % % Basophils % % Nucleated RBC % (0.0-0.3) % Absolute Neutrophils (1.2-6.7) 10^3/uL Absolute Lymphocytes (1.2-3.4) 10^3/uL Absolute Monocytes (0.1-0.8) 10^3/uL Absolute Eosinophils (0.0-0.7) 10^3/uL Absolute Basophils (0.0-0.2) 10^3/uL ESR (0-20) mm/hr Sodium (136-145) mmol/L Potassium (3.5-5.1) mmol/L Chloride (98-107) mmol/L Carbon Dioxide (21.0-32.0) mmol/L Anion Gap (3-11) mmol/L BUN (7-18) mg/dL Creatinine (0.70-1.30) mg/dL Est GFR (CKD-EPI 2020) (mL/min/1.73m2) Glucose (74-106) mg/dL Calcium (8.5-10.1) mg/dL Total Bilirubin (0.2-1.0) mg/dL AST (15-37) U/L ALT (16-63) U/L Alkaline Phosphatase (46-116) U/L Troponin I Pending 13 13 (<or=76) ng/L C-Reactive Protein (<or=0.5) mg/dL Total Protein (6.4-8.2) g/dL Albumin (3.4-5.0) g/dL Lipase (<78) U/L Urine Color (Yellow) Urine Clarity (Clear) Urine pH (5-8) Ur Specific [place] (1.005-1.025) Urine Protein (Neg-Trace) mg/dL Urine Ketones (Negative) mg/dL Urine Blood (Negative) Urine Nitrite (Negative) Urine Bilirubin (Negative) Urine Urobilinogen (Up to 0.2) mg/dL Ur Leukocyte Esterase (Negative) Urine RBC (0-2) HPF Urine WBC (0-5) HPF Ur Epithelial Cells (Negative) HPF Urine Crystals (Negative) HPF Urine Bacteria (Negative) HPF Urine Casts (Negative) LPF Urine Mucus (Negative) Ur Culture Indicated? Urine Glucose (Negative) mg/dL Add-On Test Request 11/23/24 11/23/24 11/23/24 Range/Units 13:36 12:08 10:24 WBC 10.52 (4.4-10.8) 10^3/uL RBC 5.69 (4.36-5.78) 10^6/uL Hgb 15.7 (13.5-17.5) g/dL Hct 46.2 (40.0-50.0) % MCV 81 (80-95) fL MCH 27.6 (27.0-33.0) pg MCHC 34.0 (32.0-36.0) % RDW 14.0 (11.8-14.1) % Plt Count 253 (130-400) 10^3/uL MPV 9.2 (8.0-11.0) fL Immature Gran % 0.4 % Neutrophils % 73.6 % Lymphocytes % 16.2 % Monocytes % 8.4 % Eosinophils % 1.0 % Basophils % 0.4 % Nucleated RBC % 0.0 (0.0-0.3) % Absolute Neutrophils 7.76 H (1.2-6.7) 10^3/uL Absolute Lymphocytes 1.70 (1.2-3.4) 10^3/uL Absolute Monocytes 0.88 H (0.1-0.8) 10^3/uL Absolute Eosinophils 0.10 (0.0-0.7) 10^3/uL Absolute Basophils 0.04 (0.0-0.2) 10^3/uL ESR 29 H (0-20) mm/hr Sodium 139 (136-145) mmol/L Potassium 3.5 (3.5-5.1) mmol/L Chloride 99 (98-107) mmol/L Carbon Dioxide 30.4 (21.0-32.0) mmol/L Anion Gap 9.6 (3-11) mmol/L BUN 15 (7-18) mg/dL Creatinine 0.8 (0.70-1.30) mg/dL Est GFR (CKD-EPI 2020) 101.95 (mL/min/1.73m2) Glucose 172 H (74-106) mg/dL Calcium 9.6 (8.5-10.1) mg/dL Total Bilirubin 0.8 (0.2-1.0) mg/dL AST 46 H (15-37) U/L ALT 71 H (16-63) U/L Alkaline Phosphatase 63 (46-116) U/L Troponin I 11 (<or=76) ng/L C-Reactive Protein 0.85 H (<or=0.5) mg/dL Total Protein 8.2 (6.4-8.2) g/dL Albumin 3.7 (3.4-5.0) g/dL Lipase 26 (<78) U/L Urine Color Yellow (Yellow) Urine Clarity Clear (Clear) Urine pH 7.0 (5-8) Ur Specific [place] 1.020 (1.005-1.025) Urine Protein >=300 H (Neg-Trace) mg/dL Urine Ketones Trace H (Negative) mg/dL Urine Blood Small H (Negative) Urine Nitrite Negative (Negative) Urine Bilirubin Negative (Negative) Urine Urobilinogen 1.0 H (Up to 0.2) mg/dL Ur Leukocyte Esterase Negative (Negative) Urine RBC 0-2 (0-2) HPF Urine WBC 0-2 (0-5) HPF Ur Epithelial Cells Rare (Negative) HPF Urine Crystals Negative (Negative) HPF Urine Bacteria Negative (Negative) HPF Urine Casts Negative (Negative) LPF Urine Mucus Trace (Negative) Ur Culture Indicated? No Urine Glucose Negative (Negative) mg/dL Add-On Test Request DONE DONE Intake and Output - 24 Hour Total 11/23/24 09:21 thru 11/23/24 13:30 Intake Total 1052 Balance 1052 Weight 122.016 kg Intake: IV 1052 Other: Stool Characteristics Soft Formed Emesis Description None Falls Risk Assessment History of Falls No History 11/23/24 10:51 Contributing Factors No Factors 11/23/24 10:51 Ambulatory Aids Independent 11/23/24 10:51 Tubes/Lines None 11/23/24 10:51 Gait Evaluation No gait disturbance 11/23/24 10:51 Cognition No cognitive impairment 11/23/24 10:51 Fall Total Score 0 11/23/24 10:51 Level of Risk Standard/Low Risk 11/23/24 10:51 Problems (Last Reviewed 05/07/23 @ 07:06 by Shaquille Yap MD) Acute generalized abdominal pain (Acute) Nausea & vomiting (Acute) Ureteritis (Acute) Notes 11/23/24 13:27 Nursing Notes by Casey Benitez Patient reported sudden chest pain lasting less than 1 minute that went away. informed and EKG ordered Initialized on 11/23/24 13:27 - END OF NOTE v v v v v v v v v Sending and/or Receiving Nurses: Please use comment section below to note any information pertinent to the patient hand-off not included above. Information / Comments: Report received from: casey
[2024-11-23] MEDS: POTASSIUM CHLORIDE/D5-0.45NACL 1,000 ML 125 MEQ IV (16:14)
[2024-11-23] MEDS: Prochlorperazine 10 MG/2 ML VIAL IVP (16:14)
[2024-11-23] MEDS: rOPINIRole 0.5 MG TAB PO ×2 (17:59→20:06)
[2024-11-23] MEDS: Insulin Aspart 300 UNITS/3 ML PEN SC (17:59)
[2024-11-23 18:27] LABS: Troponin I 13 ng/L (<or=76)
[2024-11-23] MEDS: Enoxaparin 40 MG/0.4 ML SYR SC (20:05)
[2024-11-23] MEDS: Docusate Sodium 100 MG CAP PO (20:05)
[2024-11-23] MEDS: Tamsulosin 0.4 MG CAPCR PO (20:06)
[2024-11-23] MEDS: Insulin Glargine 300 UNITS/3 ML PEN 15 UNITS SC (20:08)
[2024-11-24] MEDS: POTASSIUM CHLORIDE/D5-0.45NACL 1,000 ML 125 MEQ IV ×2 (00:27→08:25)
[2024-11-24] MEDS: Acetaminophen 325 MG TAB PO (04:03)
[2024-11-24] MEDS: Prochlorperazine 10 MG/2 ML VIAL IVP ×2 (07:18→13:37)
[2024-11-24 07:25] VITALS: BP 191/106; PULSE 96; RESP 16; TEMP 37.2; O2SAT 92
[2024-11-24 07:50] LABS: Anion Gap 9.6 mmol/L (3-11); BUN 14 mg/dL (7-18); CO2 28.4 mmol/L (21.0-32.0); CREATININE 0.8 mg/dL (0.70-1.30); Chloride 99 mmol/L (98-107); Estimated GFR 101.95 (mL/min/1.73m2); Glucose 209 mg/dL (74-106); Potassium 3.6 mmol/L (3.5-5.1); Sodium 137 mmol/L (136-145)
[2024-11-24 08:16] VITALS: BP 198/111; PULSE 109; RESP 16; TEMP 37.1; O2SAT 96
[2024-11-24] MEDS: Lisinopril 20 MG TAB 40 MG PO (08:20)
[2024-11-24] MEDS: hydroCHLOROthiazide 25 MG TAB PO (08:20)
[2024-11-24] MEDS: Rosuvastatin 5 MG TAB PO (08:20)
[2024-11-24] MEDS: Insulin Aspart 300 UNITS/3 ML PEN SC ×2 (08:20→11:46)
[2024-11-24] MEDS: amLODIPine 10 MG TAB PO (08:20)
[2024-11-24] MEDS: Enoxaparin 40 MG/0.4 ML SYR SC (08:20)
--- NOTE | 2024-11-24 09:36 | INITIAL_ITS ---
Date of service: 11/24/24 Time of Service: 09:36 Care Management Initial Assmt Initial Assessment Reason for Hospitalization: ureteritis Functional Status/Living Situation Patient Presentation: Kojo was lying on his side in bed, visiting with his Clementina, when CM met with him. He was a bit sleepy and nodded off a little during the conversation. Kojo appeared very restless lying in bed, especially his legs, and he informed CM that he has really bad restless leg syndrome. Kojo and Clementina live in [place], [place] in a single family home. They have no children, however Kojo's father lives i ndependently in a cabin on his property. Kojo works for [employer] in [place], [place]. He is independent at baseline and does not receive any community services. Kojo was admitted with ureteritis and vomiting. He initially had severe pain however he informed CM that the pain is now gone. He still has nausea and vomited a small amount this morning. He was given a dose of Compazine and stated that he feels much better. Town of Residence: [place], [place] Resides with: Spouse ( Clementina) Significant Other/Family: Local Employment Status: Employed Instrumental Activities of Daily Living (ADLs): Independent Medications Medication Management: No Issues/Barriers identified Physical Functioning/Mobility Assistive Device: none Advance Directives Advance Directives: Do you have an Advance Directive: N 18, 09:21 AD On File at [facility]: N 08/17/13, 19:32 Date Asked 11/23/24 11/23/24, 09:27 AD Date Reviewed COLST On File at [facility] COLST Date Scanned Code Status Resuscitation Status Full Code Portal Pt does not currently have a portal and education provided: Yes Insurance Coverage/Financial Issues Insurance: / Care Team Visit Care Team Role Provider Type Lizette Greene Primary Care Provider NURSE PRACTITIONER Shakeel Peguero MD Other Providers [facility] STAFF PHYSICIAN Mayo Hoffman MD Emergency Provider [facility] STAFF PHYSICIAN Mayo Owen Admit Provider [facility] STAFF PHYSICIAN Attending Provider Discharge Potential Discharge Needs: PCP F/U Appt Anticipated Barriers to Discharge: None Identified Patient/Family Education Needs: Review discharge instructions, discuss Ask Me Three Transportation: Private vehicle Plan: Anticipate Kojo will be discharged home with no new services when medically stable. He will follow up with his community providers and plan of care and transport with family. CM will follow and continue to support discharge planning. Social Determinants of Health Screening Social Determinants of health last assessed in clinic: 11/24/24 Will the Patient Participate in the Screening?: Yes Do you worry about having a steady place to live?: no Problems where you live: no known problems In the past 12 months, have you had to go without electric, gas, oil or water in your home?: no 1. Within the past 12 months, we worried whether our food would run out before we got money to buy more.: Never true 2. Within the past 12 months, the food we bought just didn't last and we didn't have money to get more.: Never true Has lack of transportation kept you from medical appointments or from doing things needed for daily living?: no Has anyone in your life made you feel unsafe or unsupported?: no How hard is it for you to pay for the very basics like food, housing, medical care, and heating? Would you say it is:: Not hard at all Do you want help finding or keeping work or a job?: I do not need or want help If for any reason you need help with day-to-day activities such as bathing, preparing meals, shopping, managing finances, etc., do you get the help you need?: I don?t need any help How often do you feel lonely or isolated from those around you?: Never Do you speak a language other than Romansh at home?: No PFSH All Active Problems Type 2 diabetes mellitus (Acute) Acute generalized abdominal pain (Acute) Nausea & vomiting (Acute) Ureteritis (Acute) Right renal stone (Acute) Left ureteral stone (Acute) Hypokalemia (Acute) DVT prophylaxis (Acute) Lumbar disc herniation with radiculopathy (Acute) Fever, unknown origin (Acute) HTN (hypertension) (Chronic) Hypoxia, sleep related (Acute) Discharge planning issues (Acute) Radiculitis (Acute) Diverticulosis (Acute) Medical History Class 3 obesity Joint pain Subjective tinnitus Low back pain Sleep disturbance Medication management Hyperlipidemia Fatigue Diverticulitis of colon with perforation Numbness of hand Renal calculus, left Elbow pain Buttock pain Skin lesions Microalbuminuria Elevated liver enzymes Tinnitus, bilateral RLS (restless legs syndrome) Vertigo Surgical History Previous back surgery History of colonoscopy 01/29/19 Family History Brother Heart disease Social History (Updated 11/23/24 @ 17:12 by Mayo Owen) Smoking/Tobacco Use Status: Never Smoking risk assessment performed?: Yes Alcohol Intake: current Alcohol Intake frequency: holidays/special occasions only Drug use: Daily Substance use type: marijuana Details: 1 joint per day Housing: house Sexually active: Yes (single female partner x 30+ years) Do you think of yourself as: straight/heterosexual Current gender identity: male Do you feel safe at home: Yes Do you feel safe in your relationship?: Yes Additional Social history: Grew up in [place], [place]. 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
--- NOTE | 2024-11-24 14:07 | PHA.REVIEW2 ---
Pharmacy Admission Review Admission Clinical Review Admission Pharmacy Review: Type 2 diabetes mellitus (Acute) Acute generalized abdominal pain (Acute) Nausea & vomiting (Acute) Ureteritis (Acute) DVT prophylaxis (Acute) Discharge planning issues (Acute) pregabalin (From Lyrica) Allergy (Intermediate, Verified 11/23/24 09:25) Other (See Comment) Resuscitation Status Full Code Height 5 ft 4 in Weight 122 kg Pharmacy Admission Review Renal Dosing Renal Dosing: BUN 14 mg/dL (7-18) 11/24/24 06:15 Creatinine 0.8 mg/dL (0.70-1.30) 11/24/24 06:15 Medications needing adjustments: Reviewed (CrCl 118.5 mL/min) List of meds needing interventions: Current medications are okay Anticoagulation Anticoagulation: Hgb 15.7 g/dL (13.5-17.5) 11/23/24 10:24 Hct 46.2 % (40.0-50.0) 11/23/24 10:24 Plt Count 253 10^3/uL (130-400) 11/23/24 10:24 Creatinine 0.8 mg/dL (0.70-1.30) 11/24/24 06:15 DVT Prophylaxis: Reviewed Medications: Enoxaparin (40mg BID - BMI > 40) Opiate Usage Evaluate Pain Scale/Pains Meds: Reviewed (fentanyl 75mcg IVP q2h PRN - no doses given) Relevant Labs Relevant Labs: ESR 29 mm/hr (0-20) H 11/23/24 10:24 Sodium 137 mmol/L (136-145) 11/24/24 06:15 Potassium 3.6 mmol/L (3.5-5.1) 11/24/24 06:15 Chloride 99 mmol/L (98-107) 11/24/24 06:15 C-Reactive Protein 0.85 mg/dL (<or=0.5) H 11/23/24 10:24 Electrolytes, C-Reactive P, ESR: Reviewed DM Control DM Control: Glucose 209 mg/dL (74-106) H 11/24/24 06:15 Finger Stick Blood Glucose 181 1146 Finger Stick Blood Glucose 181 1143 Finger Stick Blood Glucose 181 1143 Finger Stick Blood Glucose 198 0820 Finger Stick Blood Glucose 198 0818 Finger Stick Blood Glucose 198 0818 DM Control: Reviewed Insulin Dosing, Diabetic Medication: Has order for SS insulin and glargine 15 units at bedtime Cardiac Review Cardiac Review: Troponin I 13 ng/L (<or=76) 11/23/24 17:38 BP, HR, EF%: Reviewed (BP 198/111 and HR 109) List meds needing interventions: Has orders for amlodipine 10mg daily, HCTZ 25mg daily and lisinopril 40mg daily QTc Review QTc: Reviewed (448 from 11/23/24) IV to PO Switch IV Medications: Reviewed (fentanyl, ondansetron and prochlorperazine) Home Meds Home Med List reviewed: Intervened Relevent Home Meds Not ordered & why?: Trulicity (has order for SS insulin) and ibuprofen (PRN) Changed ammonium lactate lotion to patients own order. Per nurse patients plans on bringing in. Recently filled omeprazole but not on home med list. Asked nurse to check with patient, waiting to hear back. Current Meds Current Medication Order Review: Intervened Comments: Added IV admission order set
--- NOTE | 2024-11-24 16:52 | DSE_ITS ---
Date of service: 11/24/24 Time of Service: 16:52 DS: Diagnosis Discharge Diagnosis (1) Ureteritis: Status: Acute (2) Nausea & vomiting: Status: Acute (3) HTN (hypertension): Status: Chronic (4) Elevated liver enzymes: (5) Type 2 diabetes mellitus: Status: Acute (6) RLS (restless legs syndrome): (7) Class 3 obesity: (8) DVT prophylaxis: Status: Acute (9) Discharge planning issues: Status: Acute Discharge Plan Disposition Patient Disposition: Home Condition: Improving Discharge Details Reason For Visit: Vomiting, Ureteritis Admit Date/Time: 11/23/24 15:06 Admit Provider: Mayo Owen Attending Provider: Mayo Owen Primary Care Provider: Lizette Greene Hospital Course Hospital Course: 59 yo M with history of nephrolithiasis, type 2 DM, HTN, BMI 46, h/o diverticulitis, and low back pain a/w lumbar disc disease who presented to the ED with 2 days of abdominal pain and vomiting. ED evaluation included CT with findings below: Urothelial wall thickening enhancement with cysts stranding surrounding the ureters, consistent with ureteritis. No ureteral calculi or bladder wall th ickening. Small nonobstructing stones are present in the left kidney. Renal function was normal and he did not have diarrhea or symptoms. Dr. Peguero consulted who recommended coritosteroid therapy and outpatient follow up, but the patient had persistent vomiting and severe pain and was admitted for supportive care with IV therapy. He was maintained on IV fluids and treated with IV dexamethasone, fentanyl, compazine, and ondansatron. By the next day his pain had resolved. His nausea had improved and he was keeping down bland food and fluids. He was discharged with a medrol dose pack and ondansatron. He should follow up with Dr. Peguero within 2 weeks and with PCP this month for blood pressure. His blood pressure was high, but he had missed 2 days of his oral medications. He should resume his regular home medcations. No other changes were made. His LFTs were elevated, which have been intermittently high in the past. He has had negative hepatitis screen. This may be MASLD, but should be followed for progression to fibrosis. Recommendations for Follow Up Recommended tests to be ordered by follow up provider: CMP, CRP, and prot/creatinine ratio in 1 week Home Meds and New Rx's Prescriptions: New methylprednisolone [Medrol] 16 mg tablet 16 mg PO Q OTHER DAY Qty: 5 0RF Rx Instructions: Please provide Medrol Dosepak ondansetron 4 mg tablet,disintegrating 4 mg PO Q8H PRNQty: 14 0RF Continued tramadol 50 mg tablet 50 mg PO Q8H PRN (Reason: pain) Qty: 30 0RF ropinirole 0.5 mg tablet 0.5 mg PO QHS Rx Instructions: administer 1-3 hours before bedtime rosuvastatin 5 mg tablet 5 mg PO DAILY hydrochlorothiazide 25 mg tablet 25 mg PO DAILY Lac-Hydrin Five 5 % lotion 1 applic topical BID PRN Trulicity 1.5 mg/0.5 mL pen injector 1.5 mg SUBCUT .WEEKLY Patient Comments: INJECT 1.5MG UNDER THE SKIN ONCE WEEKLY amlodipine 10 mg tablet 10 mg PO DAILY Patient Comments: TAKE ONE TABLET BY MOUTH EVERY DAY lisinopril 40 mg tablet 40 mg PO DAILY Patient Comments: TAKE ONE TABLET BY MOUTH EVERY DAY tamsulosin 0.4 mg capsule 0.4 mg PO QHS Qty: 14 0RF Held ibuprofen 800 mg tablet 800 mg PO Q8H PRN Hold Instructions: Resume on 11/28/24. Please hold while taking steroids Discharge Instructions Instructions: Nausea and vomiting in adults Additional Instructions: Your CAT scan showed that you have signs of inflammation in your ureters. Please follow-up with Dr. Peguero from the urology team. Please take the steroid pills as directed and the nausea medication (ondansatron) as needed. please return to the emergency department if you cannot eat or drink if you develop nausea or vomiting or if you have any other concerns. Please do not take ibuprofen while taking the steroids. You can take acetaminophen and the tramadol. You can resume you regular diabetes and blood pressure medications. Stand Alone Forms: Nursing Discharge Form Referrals: Shakeel Peguero MD [ [facility] STAFF PHYSICIAN, Urology] Referral Note: I called the office and left them as voicemail asking them to call you to schedule a follow up appointment in 1-2 weeks. Lizette Greene [Primary Care Provider, Medicine] - 11/30/24 2:30 pm Activity:: Activity as Tolerated Equipment/Supplies:: No Equipment Needed Diet:: Carb Counting Discharge Orders Discharge Orders: Discharge Order (Routine); Ordered 11/24/24 Ordered By: Mayo Owen DS: Summary Time Spent with Patient providing and/or coordinating discharge services: Greater than 30 minutes Status at Discharge Functional status at discharge: independent ambulation Overall status at discharge: patient is back to baseline Mental Status: mental status grossly normal Speech and Movement: speech and movement normal Mood: congruent mood Affect: normal affect Exam Narrative Exam Narrative: GEN: Alert and oriented, NAD LUNGS: CTAB with normal effort CV: RRR with no murmurs, gallops, or rubs. ABD: active bowel sounds, soft, non-distended, no masses, minimal mid-abodminal tenderness without guarding or rebound. EXT: no cyanosis, clubbing. Trace shima ankle edema, not tender. No CVAT. Psych Mental Status: mental status grossly normal Speech and Movement: speech and movement normal Mood: congruent mood Affect: normal affect DS: Data Vitals/I&O Vitals and I&O: Vital Signs Temperature 37.1 C 11/24/24 08:16 Temperature Source Temporal Artery Scan 11/24/24 08:16 Pulse 109 H 11/24/24 08:16 Pulse Rhythm Regular 11/23/24 15:53 Pulse 98 H 11/23/24 15:40 Respiratory Rate 16 11/24/24 08:16 Respiratory Effort Normal 11/23/24 15:53 Respiratory Depth Normal 11/23/24 15:53 Respiratory Pattern Normal 11/23/24 15:53 Blood Pressure 198/111 H 11/24/24 08:16 Blood Pressure Mean 140 11/24/24 08:16 Blood Pressure Position Sitting 11/23/24 09:30 Pulse Oximetry 96 11/24/24 08:16 Oxygen Delivery Method Room Air 11/24/24 08:16 Oxygen Flow Rate 0 11/24/24 08:16 Pain Level 0 11/24/24 08:16 Comment no abd pain, just muscle pain from emesis 11/23/24 09:30 Intake & Output 11/23/24 11/24/24 11/24/24 23:59 11:59 23:59 Intake Total 742 / 1742 2829.166 / 2829.166 Output Total 575 / 575 700 / 1500 800 / 1500 Balance 167 / 1167 2129.166 / 1329.166 -800 / 1329.166 Weight 122 kg Intake: IV 52 / 1052 2279.166 / 2279.166 Oral 690 / 690 550 / 550 Output: Urine 575 / 575 650 / 1450 800 / 1450 Emesis 50 / 50 Other: Urine Color Yellow Yellow Yellow Urine Appearance Clear Clear Clear Urine Odor Normal Emesis Description Clear/Water Data Completed and Pending Labs on day of discharge: Labs from last 24 hours 11/24/24 11/23/24 06:15 17:38 Sodium 137 Potassium 3.6 Chloride 99 Carbon Dioxide 28.4 Anion Gap 9.6 BUN 14 Creatinine 0.8 Est GFR (CKD-EPI 2020) 101.95 Glucose 209 H Calcium 9.0 Troponin I 13 PFSH All Active Problems Type 2 diabetes mellitus (Acute) Acute generalized abdominal pain (Acute) Nausea & vomiting (Acute) Ureteritis (Acute) Right renal stone (Acute) Hypokalemia (Acute) Left ureteral stone (Acute) DVT prophylaxis (Acute) Lumbar disc herniation with radiculopathy (Acute) Fever, unknown origin (Acute) Hypoxia, sleep related (Acute) Discharge planning issues (Acute) Radiculitis (Acute) Diverticulosis (Acute) HTN (hypertension) (Chronic) Medical History Class 3 obesity Joint pain Subjective tinnitus Low back pain Sleep disturbance Medication management Hyperlipidemia Fatigue Diverticulitis of colon with perforation Numbness of hand Renal calculus, left Elbow pain Buttock pain Skin lesions Microalbuminuria Elevated liver enzymes Tinnitus, bilateral RLS (restless legs syndrome) Vertigo Surgical History Previous back surgery History of colonoscopy 01/29/19 Family History Brother Heart disease Social History (Updated 11/23/24 @ 17:12 by Mayo Owen) Smoking/Tobacco Use Status: Never Smoking risk assessment performed?: Yes Alcohol Intake: current Alcohol Intake frequency: holidays/special occasions only Drug use: Daily Substance use type: marijuana Details: 1 joint per day Housing: house Sexually active: Yes (single female partner x 30+ years) Do you think of yourself as: straight/heterosexual Current gender identity: male Do you feel safe at home: Yes Do you feel safe in your relationship?: Yes Additional Social history: Grew up in [place], [place]. [employer]. 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 Time Spent with Patient Time Spent with Patient: <45 minutes Time was spent: preparing to see the patient(eg.review tests), obtaining and/or reviewing separately otained hiistory, ordering medications,tests, procedures, referring, communicating with other health director long term care, indepentently interpreting results, counseling the patient and care coordination
== END 2024-11-24 17:28 | disposition home or self-care (01) ==
LOC: ER 14:50 → MS 15:50
PROVIDERS: Admitting Provider Family Medicine; Emergency Provider Emergency Medicine; PCP Nurse Practitioner Family; Responsible Provider Family Medicine; Visit Provider Family Medicine
DX: N28.86 Ureteritis cystica (principal); R11.2 Nausea with vomiting, unspecified; E66.813 Obesity, class 3; R10.84 Generalized abdominal pain; Z79.85 Long-term (current) use of injectable non-insulin antidiabetic drugs; Z79.899 Other long term (current) drug therapy; I10 Essential (primary) hypertension; R74.8 Abnormal levels of other serum enzymes; E11.9 Type 2 diabetes mellitus without complications; G25.81 Restless legs syndrome; Z68.42 Body mass index [BMI] 45.0-49.9, adult; N20.0 Calculus of kidney
CPT/HCPCS: 00123; 36415; 80048; 80053; 83690; 85652; 93005; 96361; 96372; 96374; 96375; 96376; 99285; J1650; 74177; 81003; 81015; 84484; 85025; 86140; 93010; 99222; 99239; G0378; J0780; J1100; J1815; J1885; J2405; J2765; J3010; J3490

== ENCOUNTER 2025-03-31 17:18 | Outpatient (REF) | payer OTHER, SELFPAY ==
[2025-03-31 17:00] LABS: ESR 24 mm/hr (0-20)
[2025-03-31 17:01] LABS: Abs Immature Grans 0.04 10^3/uL (0.0-0.06); HCT 41.9 % (40.0-50.0); HGB 13.7 g/dL (13.5-17.5); Immature Grans % 0.4 %; MCH 27.0 pg (27.0-33.0); MCHC 32.7 % (32.0-36.0); MCV 83 fL (80-95); MPV 10.7 fL (8.0-11.0); Platelet Count 254 10^3/uL (130-400); RBC 5.07 10^6/uL (4.36-5.78); RDW 13.5 % (11.8-14.1); RDW-SD 40.1 fL; WBC 9.06 10^3/uL (4.4-10.8)
[2025-03-31 17:11] LABS: C-Reactive Protein 1.29 mg/dL (<or=0.5); Creatine Kinase 165 U/L (39-308); Uric Acid 4.2 mg/dL (3.5-7.2)
[2025-03-31 17:51] LABS: Microalb ug/mg Crea 286.8 ug/mg Cr
== END 2025-03-31 17:19 | disposition home or self-care (01) ==
LOC: NCHCN 17:18
PROVIDERS: PCP Nurse Practitioner Family; Visit Provider Nurse Practitioner Family
DX: M25.562 Pain in left knee (principal); E11.9 Type 2 diabetes mellitus without complications; M79.18 Myalgia, other site
CPT/HCPCS: 82550; 85652; 82043; 82570; 84550; 85025; 86140

== ENCOUNTER → 2025-05-05 00:19 | Outpatient (CLI) | payer OTHER, SELFPAY ==
--- NOTE | 2025-05-05 07:15 | DI.MRI_ITS ---
Exam(s) MR LOWER JOINT LT WO EXAM: MR LOWER JOINT LT WO CLINICAL HISTORY: L KNEE PAIN,ARTHRITIS LT KNEE,ACUTE MEDIAL MENISCUS TEAR,M17.12,S83.242A. TECHNIQUE: Multiplanar multisequence MRI was performed. COMPARISON: CR XR KNEE LT 3V AP,LAT,DARYL from 10/21/2024 FINDINGS: BONES: There is no fracture or contusion pattern. There are areas of hypointense signal seen in the marrow which may represent red marrow reconversion. JOINTS: There is loss of the articular cartilage in the medial femoral tibial joint overlying both the femur and the proximal tibia. Subchondral edema is present. There is also loss and thinning of the articular cartilage overlying the patella particularly laterally. There is a moderate joint effusion. TENDONS: Extensor mechanism: Unremarkable. Medial retinaculum: Unremarkable. Lateral retinaculum: Unremarkable. Popliteus: Unremarkable. MUSCLES: Unremarkable. MENISCI: There is a tear of the body and posterior horn of the medial meniscus. The lateral meniscus is unremarkable. SOFT TISSUES: There is edema seen in the prepatellar soft tissues. LIGAMENTS: Anterior Cruciate: Unremarkable. Posterior Cruciate: Unremarkable. Medial Collateral:Unremarkable. Lateral Collateral: Unremarkable. OTHER: IMPRESSION: 1. There is a tear of the body and posterior horn of the medial meniscus. 2. Osteoarthritis of the knee particularly involving the medial femoral tibial and patellofemoral joints. 3. Chondromalacia patella with mild subchondral edema. 4. Moderate joint effusion. 5. There is no evidence of a ligament tear. DATA REPOSITORY:
== END ==
LOC: DI 00:19
PROVIDERS: PCP Nurse Practitioner Family; Visit Provider Student in an Organized Health Care Education/Training Program
DX: S83.242A Other tear of medial meniscus, current injury, left knee, initial encounter (principal); M17.12 Unilateral primary osteoarthritis, left knee; M22.42 Chondromalacia patellae, left knee; M25.462 Effusion, left knee
CPT/HCPCS: 73721